=== PATIENT | male | born 1930 | race Caucasian/White ===

== ENCOUNTER → 2016-07-20 | Day surgery (SDC) | payer MEDICARE ==
[~2016-07-20] MED LIST: Buffered Lidocaine 1% SYR 3ML* 3 ML/SYR SYRINGE INTRADERM ONE; Buffered Lidocaine 1% SYR 3ML* 3 ML/SYR SYRINGE ONE; Bupivacaine 0.25% EPI 200,000* 30 ML SDV ONE; Bupivacaine 0.25% SDV* 30 ML ONE; Bupivacaine 0.5% W/EPI SDV* 30 ML VIAL ONE; HYDROcodone/ACETAMIN 5-325 MG* 1 TAB PO PRN; Lidocain 1% EPI 1:100,000 * 30 ML MDV ONE; Midazolam* 1 MG/ML 5 ML VIAL (5 MG) ONE; Ondansetron INJ* 2 MG/ML VIAL IV PRN; ceFAZolin 2 GM PREMIX (*) 2 GM/50 ML BAG IVPB ONE; fentaNYL* 50 MCG/ML 2 ML VIAL (100 MCG VIAL) IV PRN; fentaNYL* 50 MCG/ML 2 ML VIAL (100 MCG VIAL) ONE
[2016-07-20 15:46] VITALS: BP 167/78
== END | disposition home or self-care (01) ==
LOC: OREAST 13:29
PROVIDERS: ATTEND Plastic Surgery
DX: C43.59 Malignant melanoma of other part of trunk (principal); N18.9 Chronic kidney disease, unspecified; Z86.73 Personal history of transient ischemic attack (TIA), and cerebral infarction without residual deficits; Z79.01 Long term (current) use of anticoagulants
CPT/HCPCS: 88305; J0690; J2250; J3010

== ENCOUNTER 2017-08-13 01:41 | Inpatient (IN) | payer MEDICARE ==
[2017-08-13] MEDS ORDERED: Diltiazem IV* 5 MG/ML 5 ML VIAL (for loading dose/IV Push) (25 MG) IV PUSH ONE (02:25)
[2017-08-13 02:41] LABS: ABS Basophils 0.1 10^3/ul (0-0.2); ABS Eosinophils 0.2 10^3/ul (0-0.6); ABS Lymphocytes 1.2 10^3/ul (1.0-4.8); ABS Monocytes 0.8 10^3/ul (0-0.8); ABS Neutrophils 6.4 10^3/ul (1.5-7.7); ABS Nucleated RBC 0 10^3/ul; Eosinophil % 1.7 % (0-6); Hematocrit 37 % (42-52); Hemoglobin 12.2 g/dl (14.0-18.0); Lymphocyte % 13.8 % (25-47); Mean Corpuscular HGB Conc 33 g/dl (31-36); Mean Corpuscular Hemoglobin 33 pg (27-31); Mean Corpuscular Volume 100 fL (80-94); Mean Platelet Volume 10 um3 (7.4-10.4); Nucleated Red Blood Cells % 0.1; Platelet Count 122 10^3/ul (150-450); Red Blood Count 3.68 10^6/ul (4.0-5.4); Red Cell Distribution Width 15 % (10.5-15); White Blood Count 8.7 10^3/ul (3.5-10.8)
[2017-08-13 02:51] LABS: EGFR Non-African American 11.6 (>60)
[2017-08-13 02:54] LABS: INR 0.88 (0.77-1.02)
[2017-08-13] MEDS ORDERED: Potassium Chlor TAB* 20 MEQ TAB.ER PO ONE (03:29)
[2017-08-13] MEDS ORDERED: Al Hydrox/Mg Hydrox/Simet LIQ* 30 ML UDC PO PRN (03:30)
[2017-08-13] MEDS ORDERED: Ondansetron INJ* 2 MG/ML VIAL IV PRN (03:30)
[2017-08-13] MEDS ORDERED: Senna TAB PO PRN (03:36)
[2017-08-13] MEDS ORDERED: Docusate CAP* 100 MG PO PRN (03:36)
[2017-08-13] MEDS ORDERED: Diltiazem IV VIAL* 125 MG/25 ML VIAL ONE (03:37)
[2017-08-13] MEDS: Heparin DRIP 25,000 UNITS(*) 25,000 UNITS/500 ML BAG IV SCH ×2 (04:00→07:25)
[2017-08-13] MEDS ORDERED: Heparin VIAL(*) 5000 UNITS/ML VIAL (FIVE THOUSAND) IV SCH (04:00)
[2017-08-13] MEDS ORDERED: Diltiazem IV VIAL* 125 MG in NS 0.9% 100 ML* 100 ML IVPB SCH ×2 (04:00→06:49)
--- NOTE | 2017-08-13 05:10 | ED ---
Niko Cash Thomas, scribed for Jj Liz on 08/13/17 at 0219 . HPI Chest Pain - HPI Summary HPI Summary: The patient is an 86 year old male presenting to the emergency department complaining of chest pain and an irregular heart rate that began today at midnight. He has a history of similar episodes once about every three months. The pain is rated 5/10. The patient denies edema. He has a history of chronic kidney disease. - History of Current Complaint Chief Complaint: EDChestPainROMI Time Seen by Provider: 08/13/17 02:12 Hx Obtained From: Patient Onset/Duration: Started Hours Ago - 2, Still Present Timing: Constant Current Severity: Moderate Pain Intensity: 5 Pain Scale Used: 0-10 Numeric Chest Pain Radiates: No Aggravating Factor(s): Nothing Alleviating Factor(s): Nothing Associated Signs and Symptoms: Positive: Chest Pain, Other: - Irregular heart rate. Negative: Edema - Allergy/Home Medications Allergies/Adverse Reactions: Allergies Allergy/AdvReac Type Severity Reaction Status Date / Time No Known Allergies Allergy Verified 07/20/16 13:41 PMH/Surg Hx/FS Hx/Imm Hx Cardiovascular History: Reports: Hx Hypertension, Other Cardiovascular Problems/ Disorders - CHOLESTEROL CONTROL WITH MEDS GI History: Reports: Other GI Disorders - CONSTIPATION- METAMUCIL, colace History: Reports: Hx Kidney Stones - "DEBRIS" AT 22 YRS OF AGE, Other Problems/Disorders Musculoskeletal History: Reports: Hx Arthritis - GENERALIZED,, Other Musculoskeletal History - RIGHT LOWER BACK PAIN FOR PAST MONTH Sensory History: Reports: Hx Cataracts - HX, Hx Contacts or Glasses - GLASSES- DISTANCE, Hx Hearing Aid - bilat Opthamlomology History: Reports: Hx Cataracts - HX, Hx Contacts or Glasses - GLASSES- DISTANCE Neurological History: Reports: Hx Seizures - 1989 ONE TIME ONLY, Other Neuro Impairments/Disorders - 1989 TIA - Surgical History Surgery Procedure, Year, and Place: 1954 TUR- [facility]. BILATERAL INGUINAL HERNIA SURG X 3 1949'S AND 1965- [facility]. 11/27 left ARM MELANOMA - DR BRYANT [facility]. cataract surgery with lens implants - [facility] - 2007 Hx Anesthesia Reactions: No Infectious Disease History: No Infectious Disease History: Denies: Traveled Outside the [place] in Last 30 Days - Family History Known Family History: Positive: Other - Patient denies relevant FHx - Social History Alcohol Use: Rare Alcohol Amount: 1-2 DRINKS/WEEK Substance Use Type: Reports: None Smoking Status (MU): Never Smoked Tobacco Have You Smoked in the Last Year: No Review of Systems Negative: Fever Positive: Chest Pain, Other - Irregular heart rate Negative: Edema All Other Systems Reviewed And Are Negative: Yes Physical Exam - Summary Physical Exam Summary: Appearance: Well appearing, no pain distress Skin: warm, dry, reflects adequate perfusion Head/face: normal Eyes: EOMI, EDWARDO ENT: normal Neck: supple, non-tender Respiratory: CTA, breath sounds present Cardiovascular: Irregularly irregular rhythm. Tachycardia. Abdomen: non-tender, soft Bowel: present Musculoskeletal: normal, strength/ROM intact Neuro: normal, sensory motor intact, A&Ox3 Triage Information Reviewed: Yes Vital Signs On Initial Exam: Initial Vitals Temp Pulse Resp BP Pulse Ox 97.1 F 69 14 140/78 96 08/13/17 01:47 08/13/17 01:47 08/13/17 01:47 08/13/17 01:47 08/13/17 01:47 Vital Signs Reviewed: Yes Diagnostics - Vital Signs Vital Signs Temp Pulse Resp BP Pulse Ox 08/13/17 01:47 97.1 F 69 14 140/78 96 - Laboratory Lab Results: Lab Results 08/13/17 08/13/17 08/13/17 Range/Units 02:16 02:16 02:16 WBC 8.7 (3.5-10.8) 10^3/ul RBC 3.68 L (4.0-5.4) 10^6/ul Hgb 12.2 L (14.0-18.0) g/dl Hct 37 L (42-52) % MCV 100 H (80-94) fL MCH 33 H (27-31) pg MCHC 33 (31-36) g/dl RDW 15 (10.5-15) % Plt Count 122 L (150-450) 10^3/ul MPV 10 (7.4-10.4) um3 Neut % (Auto) 74.1 (38-83) % Lymph % (Auto) 13.8 L (25-47) % Hyde % (Auto) 9.8 H (1-9) % Eos % (Auto) 1.7 (0-6) % Baso % (Auto) 0.6 (0-2) % Absolute Neuts (auto) 6.4 (1.5-7.7) 10^3/ul Absolute Lymphs (auto) 1.2 (1.0-4.8) 10^3/ul Absolute Monos (auto) 0.8 (0-0.8) 10^3/ul Absolute Eos (auto) 0.2 (0-0.6) 10^3/ul Absolute Basos (auto) 0.1 (0-0.2) 10^3/ul Absolute Nucleated RBC 0 10^3/ul Nucleated RBC % 0.1 INR (Anticoag Therapy) 0.88 (0.77-1.02) APTT 31.4 (26.0-36.3) seconds Sodium (133-145) mmol/L Potassium (3.5-5.0) mmol/L Chloride (101-111) mmol/L Carbon Dioxide (22-32) mmol/L Anion Gap (2-11) mmol/L BUN (6-24) mg/dL Creatinine (0.67-1.17) mg/dL Est GFR ( Amer) (>60) Est GFR (Non-Af Amer) (>60) BUN/Creatinine Ratio (8-20) Glucose (70-100) mg/dL Lactic Acid 0.6 (0.5-2.0) mmol/L Calcium (8.6-10.3) mg/dL Magnesium (1.9-2.7) mg/dL Total Bilirubin (0.2-1.0) mg/dL AST (13-39) U/L ALT (7-52) U/L Alkaline Phosphatase (34-104) U/L Troponin I (<0.04) ng/mL B-Natriuretic Peptide ( - 100) pg/mL Total Protein (6.4-8.9) g/dL Albumin (3.2-5.2) g/dL Globulin (2-4) g/dL Albumin/Globulin Ratio (1-3) TSH (0.34-5.60) mcIU/mL 08/13/17 08/13/17 Range/Units 02:26 02:26 WBC (3.5-10.8) 10^3/ul RBC (4.0-5.4) 10^6/ul Hgb (14.0-18.0) g/dl Hct (42-52) % MCV (80-94) fL MCH (27-31) pg MCHC (31-36) g/dl RDW (10.5-15) % Plt Count (150-450) 10^3/ul MPV (7.4-10.4) um3 Neut % (Auto) (38-83) % Lymph % (Auto) (25-47) % Hyde % (Auto) (1-9) % Eos % (Auto) (0-6) % Baso % (Auto) (0-2) % Absolute Neuts (auto) (1.5-7.7) 10^3/ul Absolute Lymphs (auto) (1.0-4.8) 10^3/ul Absolute Monos (auto) (0-0.8) 10^3/ul Absolute Eos (auto) (0-0.6) 10^3/ul Absolute Basos (auto) (0-0.2) 10^3/ul Absolute Nucleated RBC 10^3/ul Nucleated RBC % INR (Anticoag Therapy) (0.77-1.02) APTT (26.0-36.3) seconds Sodium 137 (133-145) mmol/L Potassium 3.3 L (3.5-5.0) mmol/L Chloride 105 (101-111) mmol/L Carbon Dioxide 20 L (22-32) mmol/L Anion Gap 12 H (2-11) mmol/L BUN 86 H (6-24) mg/dL Creatinine 4.80 H (0.67-1.17) mg/dL Est GFR ( Amer) 15.0 (>60) Est GFR (Non-Af Amer) 11.6 (>60) BUN/Creatinine Ratio 17.9 (8-20) Glucose 141 H (70-100) mg/dL Lactic Acid (0.5-2.0) mmol/L Calcium 10.5 H (8.6-10.3) mg/dL Magnesium 2.8 H (1.9-2.7) mg/dL Total Bilirubin 0.40 (0.2-1.0) mg/dL AST 14 (13-39) U/L ALT 13 (7-52) U/L Alkaline Phosphatase 32 L (34-104) U/L Troponin I 0.06 H* (<0.04) ng/mL B-Natriuretic Peptide 175 H ( - 100) pg/mL Total Protein 6.6 (6.4-8.9) g/dL Albumin 3.7 (3.2-5.2) g/dL Globulin 2.9 (2-4) g/dL Albumin/Globulin Ratio 1.3 (1-3) TSH 3.84 (0.34-5.60) mcIU/mL Result Diagrams: 08/13/17 02:16 08/13/17 02:26 Lab Statement: Any lab studies that have been ordered have been reviewed, and results considered in the medical decision making process. - Radiology CXR Xray Interpretation: No Acute Changes - Negative CXR Radiology Interpretation Completed By: ED Physician - EKG 01:52 Cardiac Rate: Tachycardia EKG Rhythm: Atrial Fibrillation - at 129 BPM EKG Interpretation: A-Fib with RVR Chest Pain Course/Dx - Course Assessment/Plan: The patient is an 86 year old male presenting to the emergency department complaining of chest pain and an irregular heart rate that began today at midnight. In the ED course the patient was given Diltiazem. Bloodwork was obtained. EKG shows A-Fib with RVR. CXR is negative. Patient is diagnosed with A-Fib with RVR, chest pain, ACS, and chronic renal failure. The patient will be admitted to Dr. Espinosa. 30 minutes critical care time. - Chest Pain Differential Diagnosis/HQI/PQRI: Acute TN, ACS, Angina, Chest Wall, Pulmonary Edema - Diagnoses Provider Diagnoses: Atrial fibrillation with RVR, Chest pain, ACS (acute coronary syndrome), Chronic renal failure - Provider Notifications Discussed Care Of Patient With: Maria A Espinosa Time Discussed With Above Provider: 03:03 Instructed by Provider To: Admit As Inpatient - Critical Care Time Critical Care Time: 30-74 min - 30 minutes Discharge - Discharge Plan Condition: Fair Disposition: ADMITTED TO [facility] Discharge Disposition Comment: By Dr. Espinosa The documentation as recorded by the Niko meza Thomas accurately reflects the service I personally performed and the decisions made by , Jj Liz.
[2017-08-13] MEDS ORDERED: Warfarin TAB(*) 5 MG PO ONE (06:00)
--- NOTE | 2017-08-13 08:14 | RAD ---
Indication: Shortness of breath. Single frontal view of the chest performed at 0258 hours was reviewed. No prior study is available for comparison. No mediastinal shift is noted. There is cardiomegaly noted. Lung bundy are clear. IMPRESSION: CARDIOMEGALY WITHOUT EVIDENCE OF ACTIVE CARDIOPULMONARY DISEASE.
[2017-08-13] MEDS ORDERED: Clopidogrel TAB* 75 MG PO SCH (09:00)
[2017-08-13] MEDS ORDERED: Allopurinol TAB* 100 MG PO SCH (09:00)
[2017-08-13] MEDS ORDERED: Calcitriol CAP* 0.25 MCG PO SCH (09:00)
[2017-08-13] MEDS ORDERED: Carvedilol TAB* 6.25 MG PO SCH (09:00)
--- NOTE | 2017-08-13 11:09 | HP ---
CC: Selene Conn MD; Katie Glass MD; Raimundo Saenz MD HISTORY AND PHYSICAL: DATE OF ADMISSION: 08/13/17 TIME OF EVALUATION: 0300 PRIMARY CARE PHYSICIAN: Selene Conn MD. COLLABORATIVE TEACHER: Katie Glass MD. TOBACCO CONDITIONER: Raimundo Saenz MD. CHIEF COMPLAINT: Chest pain and rapid rhythm. HISTORY OF PRESENT ILLNESS: This is an 86-year-old male with a past medical history of rapid heart rate who presents to the emergency room with a chest pain and rapid heartbeat. Patient states he had some slight chest discomfort prior to going to bed. He woke up around midnight to go to the bathroom; before getting up he noticed the chest pain had worsened, and he was noted to have a fast heart rate. A year and a half ago, he was in [place] visiting his daughter when he noted to have a rapid heart rate, he was evaluated and had a normal sinus rhythm at that time. There was concern for an irregular rhythm but he was diagnosed with atrial fibrillation in the past. Patient states he has had dyspnea on exertion; short of breath going uphill, putting a socks on, his put the socks on. This evening he did have some nausea and some mild diaphoresis. He denies any recent URI illness, no fevers, no change in his weight, no lower extremity swelling. He denies any caffeine intake. He does snore at night according to the . Currently his chest pain has improved. In the emergency room patient had labs and imaging. He was given 20 mg of Diltiazem and was referred to the hospitalist service for further evaluation. Otherwise, remaining review of systems negative. PAST MEDICAL HISTORY: 1. History of rapid heart rate. 2. History of TIA in 1989 with left-sided numbness. 3. Hypertension. 4. CKD, has peritoneal catheter in place for the past year, but has not yet initiated dialysis followed by Dr. Saenz. 5. Hyperlipidemia. 6. History of melanoma and basal cell carcinoma. 7. Gout. MEDICATIONS: 1. Allopurinol 100 mg p.o. b.i.d. 2. Simvastatin 20 mg p.o. daily. 3. Lasix 40 mg p.o. daily. 4. Losartan 100 mg p.o. daily. 5. Hydralazine 25 mg 2 tabs 15 mg t.i.d. 6. Aspirin 81 mg p.o. daily. 7. FiberCon 625 mg 3 tablets by mouth daily. 8. Fish oil 1000 mg p.o. q.d. 9. Coreg 6.25 mg p.o. b.i.d. 10. Plavix 75 mg p.o. daily. 11. Colace 100 mg b.i.d. as needed. 12. Colchicine 0.6 mg by mouth as needed. 13. Meclizine 25 mg 3 times a day as needed. 14. Metamucil as needed. 15. Calcitriol 0.25 mcg by mouth daily. ALLERGIES: No known drug allergies. FAMILY HISTORY: Mother at age 102 from old age. Father from colon cancer, age 43. SOCIAL HISTORY: Patient is with his Marycarmen, who is his healthcare proxy. She is a retired nurse. No history of smoking. Drinks 1 to 2 times per month. He is independent of his ADLs. Code Status: Full code. REVIEW OF SYSTEMS: A 14-point review of systems as mentioned in the HPI, otherwise negative. PHYSICAL EXAMINATION GENERAL: No acute distress. Resting comfortably with his at the bedside. VITAL SIGNS: Temp 97.8; pulse rate is 112, irregular; respiratory is 14; oxygen saturation 97% on room air, blood pressure 146/78. HEENT: Head, normocephalic. Pupils equal and reactive. Oropharynx: Mucous membranes moist. NECK: Supple. No lymphadenopathy. RESPIRATORY: Diminished breath sounds. No wheezing, rhonchi, or rales CARDIAC: Rapid irregularly, irregular rate and rhythm. Soft systolic murmur heard throughout. ABDOMEN: Soft, nontender, nondistended. EXTREMITIES: No clubbing, cyanosis, or edema. +1 DPs. NEUROLOGIC: Alert and oriented x3. No focal neurologic deficits. LABORATORY DATA: White count 8.7, hemoglobin 12.2, hematocrit 37, and platelets 122. INR is 0.88. Sodium 132, potassium 3.3, chloride 105, bicarb 20 , BUN 86, creatinine 4.8, calcium 10.5, glucose 141, troponin is 0.06. BMP 175. TSH is 3.85. DIAGNOSTIC DATA: Radiographic data, EKG shows rapid atrial fibrillation with a rate of 129. Chest x-ray shows some slightly prominent interstitial markings, cardiomegaly. ASSESSMENT: This is an 86-year-old male with a past medical history of rapid heart rate, TIA, and CKD, who presents to the emergency room with chest pain and rapid heart rate, find to be in rapid atrial fibrillation. 1. Chest pain with rapid heart rate. Assessment: Patient was found to be in a rapid atrial fibrillation. His troponin is slightly bumped but this could be related to his renal failure and/or his rapid afib. It appears that he has longstanding undiagnosed paroxysmal atrial fibrillation; he is not on anticoagulation. Plan: We will start him on a diltiazem drip, replete his potassium, check and magnesium. We will keep him n.p.o. We will call Cardiology in the morning and order a DEEP. We will place him on a heparin drip as he is not a candidate for direct oral anticoagulation due to his renal function. We will start him on Coumadin as his CHADs2 score is 4. We will continue to trend his troponin. We will hold his aspirin. Continue his Plavix as he is getting heparin and I am going to start him on a low dose Coumadin for now. I suspect his chest pain is related to his rapid atrial fibrillation, we will trend his troponin. He may need nuclear stress test as well. 2. Chronic medical problem, chronic kidney disease. Recommend notifying Dr. Saenz. He does have peritoneal catheter in place, but has never initiated dialysis. We will monitor his renal function closely. I am going to hold his lisinopril and antihypertensives for now and start with diltiazem drip. 3. Hypertension, as mentioned I will hold the antihypertensives for now. We will continue his Coreg. 4. Gout. Patient is on high dose of allopurinol. In the setting of renal failure, we will decrease it to 100 daily instead of b.i.d. 5. Hyperlipidemia. We will check his lipid panel and switch to atorvastatin from simvastatin as he did not have that in formulary. 6. FEN. Patient to be n.p.o. for possible DEEP in the morning. 7. DVT prophylaxis. The patient scores high risk. He will be on placed on a heparin drip. PATIENT TIME: Greater than 70 minutes was spent doing the history and physical , more than half time spent in direct patient contact. [id number]/[facility] #: [id number] REA
[2017-08-13] MEDS ORDERED: Amiodarone TAB* 200 MG PO SCH ×2 (13:52→21:00)
--- NOTE | 2017-08-13 14:42 | PN ---
Subjective Date of Service: 08/13/17 Interval History: Patient was admitted this morning with chest pain and afib with RVR. Patient states that he has had no recurrences of his chest pain since this morning and that it lasted about 3 hours. Patient has had previous episodes like this before and the chest pain lasted the same amount of time. Patient has never had documented afib before but has had similar episodes. Patient states he gets nauseated with the pain but is not now. Patient denies F/C, Abdominal pain, diarrhea, recent illness, dysuria, or other pain. Patient spontaneously converted to NSR around 1230 with a rate initially in the 40s and now in the 50s. Family History: Unchanged from Admission Social History: Unchanged from Admission Past Medical History: Unchanged from Admission Objective Active Medications: Al Hydrox/Mg Hydrox/Simethicone (Maalox Plus*) 30 ml PO Q6H PRN PRN Reason: INDIGESTION Allopurinol (Zyloprim Tab*) 100 mg PO DAILY [facility] Last Admin: 08/13/17 14:11 Dose: 100 mg Amiodarone HCl (Cordarone Tab*) 200 mg PO BID [facility] Last Admin: 08/13/17 14:11 Dose: 200 mg Atorvastatin Calcium (Lipitor*) 20 mg PO 2100 [facility] Calcitriol (Rocaltrol Cap*) 0.25 mcg PO DAILY [facility] Last Admin: 08/13/17 14:11 Dose: 0.25 mcg Carvedilol (Coreg Tab*) 6.25 mg PO BID [facility] Last Admin: 08/13/17 14:11 Dose: 6.25 mg Docusate Sodium (Colace Cap*) 100 mg PO DAILY PRN PRN Reason: CONSTIPATION Heparin Sodium (Porcine) (Heparin Vial(*)) 0 units IV .PER PROTOCOL [facility] PRN Reason: Protocol Heparin Sodium/Dextrose (Heparin Drip 25,000 Units(*)) 25,000 units in 500 mls @ 0 mls/hr IV .NO BOLUSES PROTOCOL [facility]; Per Protocol PRN Reason: Protocol Last Admin: 08/13/17 07:25 Dose: 22 mls/hr Ondansetron HCl (Zofran Inj*) 4 mg IV Q4H PRN PRN Reason: NAUSEA/VOMITING Pharmacy Profile Note (Coumadin Per Pharmacy*) 1 note FOLLOW UP .PER PHARMACY PROTOC [facility] PRN Reason: Protocol Pharmacy Profile Note (Coumadin Daily Reminder*) 1 note FOLLOW UP 1700 ZECHARIAH Senna (Senokot Tab*) 1 tab PO BEDTIME PRN PRN Reason: CONSTIPATION Vital Signs - 8 hr 08/13/17 08/13/17 08/13/17 06:48 07:00 07:10 Temperature Pulse Rate 71 66 84 Respiratory Rate Blood Pressure 114/70 134/52 110/69 (mmHg) O2 Sat by Pulse 96 98 96 Oximetry 08/13/17 08/13/17 08/13/17 07:13 07:18 07:24 Temperature Pulse Rate 77 82 Respiratory Rate Blood Pressure 96/69 106/67 102/65 (mmHg) O2 Sat by Pulse 94 93 Oximetry 08/13/17 08/13/17 08/13/17 07:29 07:30 07:34 Temperature Pulse Rate 65 94 Respiratory Rate Blood Pressure 103/67 146/113 117/62 (mmHg) O2 Sat by Pulse 97 95 Oximetry 08/13/17 08/13/17 08/13/17 07:39 07:41 07:43 Temperature Pulse Rate 79 72 73 Respiratory Rate Blood Pressure 117/62 101/70 (mmHg) O2 Sat by Pulse 96 95 96 Oximetry 08/13/17 08/13/17 08/13/17 07:49 07:54 07:58 Temperature Pulse Rate 66 80 82 Respiratory Rate Blood Pressure 130/78 112/63 111/73 (mmHg) O2 Sat by Pulse 95 96 96 Oximetry 08/13/17 08/13/17 08/13/17 08:00 08:03 08:06 Temperature 98.1 F Pulse Rate 84 Respiratory 18 Rate Blood Pressure 151/63 113/67 (mmHg) O2 Sat by Pulse 96 Oximetry 08/13/17 08/13/17 08/13/17 08:09 08:13 08:18 Temperature Pulse Rate 68 102 Respiratory Rate Blood Pressure 98/70 107/64 (mmHg) O2 Sat by Pulse 94 94 Oximetry 08/13/17 08/13/17 08/13/17 08:23 08:38 08:53 Temperature Pulse Rate 82 65 73 Respiratory Rate Blood Pressure 99/62 104/67 95/75 (mmHg) O2 Sat by Pulse 95 94 95 Oximetry 08/13/17 08/13/17 08/13/17 09:00 09:08 09:18 Temperature Pulse Rate 92 80 107 Respiratory Rate Blood Pressure 113/75 128/72 (mmHg) O2 Sat by Pulse 95 95 94 Oximetry 08/13/17 08/13/17 08/13/17 09:38 09:54 10:00 Temperature Pulse Rate 75 71 61 Respiratory Rate Blood Pressure 115/72 (mmHg) O2 Sat by Pulse 95 93 96 Oximetry 08/13/17 08/13/17 08/13/17 10:05 10:08 10:15 Temperature Pulse Rate 74 86 82 Respiratory Rate Blood Pressure 108/75 (mmHg) O2 Sat by Pulse 94 94 95 Oximetry 08/13/17 08/13/17 08/13/17 10:38 11:00 11:08 Temperature Pulse Rate 79 80 82 Respiratory Rate Blood Pressure 132/78 132/70 (mmHg) O2 Sat by Pulse 95 95 95 Oximetry 08/13/17 08/13/17 08/13/17 11:13 11:14 11:38 Temperature 98.6 F Pulse Rate 77 70 Respiratory Rate Blood Pressure 124/75 (mmHg) O2 Sat by Pulse 94 93 Oximetry 08/13/17 08/13/17 08/13/17 11:58 12:00 12:02 Temperature Pulse Rate 70 81 45 Respiratory Rate Blood Pressure 118/61 (mmHg) O2 Sat by Pulse 96 94 93 Oximetry 08/13/17 08/13/17 12:33 14:17 Temperature Pulse Rate 58 Respiratory 26 Rate Blood Pressure 153/62 114/62 (mmHg) O2 Sat by Pulse Oximetry Oxygen Devices in Use Now: None Appearance: Pateint is an 86yo male who appears stated age and is sitting in the bed in [facility]. Eyes: No Scleral Icterus, PERRLA Ears/Nose/Mouth/Throat: NL Teeth, Lips, Gums, Clear Oropharnyx, Mucous Membranes Moist Neck: NL Appearance and Movements; NL JVP, Trachea Midline Respiratory: Symmetrical Chest Expansion and Respiratory Effort, Clear to Auscultation Cardiovascular: NL Sounds; No Murmurs; No JVD, No Edema, - - Irregularly irregular rhythm rate of 96. Abdominal: NL Sounds; No Tenderness; No Distention, No Hepatosplenomegaly, - - peritoneal dialysis catheter. Lymphatic: No Cervical Adenopathy Extremities: No Edema, No Clubbing, Cyanosis Skin: No Rash or Ulcers, No Nodules or Sclerosis Neurological: Alert and Oriented x 3, NL Sensation, NL Muscle Strength and Tone Result Diagrams: 08/13/17 02:16 08/13/17 02:26 Additional Lab and Data: Lab Results Assess/Plan/Problems-Billing Assessment: Patient is an 86yo male with a pmh significant for CKD stage 4, HTN, HLD, TIA, chest pain, who presents with 3 hours of chest pain and afib with RVR who has now spontaneously converted to NSR with a rate in the 50s. - Patient Problems (1) Atrial fibrillation Current Visit: Yes Status: Acute Code(s): I48.91 - UNSPECIFIED ATRIAL FIBRILLATION SNOMED Code(s): 10110051 (2) Hypertension Current Visit: Yes Status: Acute Code(s): I10 - ESSENTIAL (PRIMARY) HYPERTENSION SNOMED Code(s): 31596967 (3) Chronic kidney disease Current Visit: Yes Status: Acute Code(s): N18.9 - CHRONIC KIDNEY DISEASE, UNSPECIFIED SNOMED Code(s): 803797981 (4) History of CVA (cerebrovascular accident) Current Visit: Yes Status: Acute Code(s): Z86.73 - PRSNL HX OF TIA (TIA), AND CEREB INFRC W/O RESID DEFICITS SNOMED Code(s): 435942999 (5) HLD (hyperlipidemia) Current Visit: Yes Status: Acute Code(s): E78.5 - HYPERLIPIDEMIA, UNSPECIFIED SNOMED Code(s): 25148275 (6) DVT prophylaxis Current Visit: Yes Status: Acute Code(s): SWH1341 - SNOMED Code(s): 898042321 (7) Full code status Current Visit: Yes Status: Acute Code(s): Z78.9 - OTHER SPECIFIED HEALTH STATUS SNOMED Code(s): 607141623
[2017-08-13 15:33] VITALS: BP 116/51
[2017-08-13] MEDS ORDERED: Atorvastatin* 20 MG TAB PO SCH (21:00)
--- NOTE | 2017-08-14 16:15 | CONS ---
CC: Dr. Katie Glass; Dr. Saenz; Dr. Conn * CARDIOLOGY CONSULTATION: DATE OF CONSULT: 08/13/17 INDICATION FOR CONSULT: Atrial fibrillation. HISTORY OF PRESENT ILLNESS: The patient is an 86-year-old gentleman with a history of severe renal insufficiency, history of TIA in the past, who presents with an episode of heart racing, chest pain, and was found to be in atrial fibrillation with rapid ventricular response. The patient has been evaluated in the past by Dr. Glass for these similar episodes. The patient describes these episodes as a discomfort in his upper chest, it goes from his right shoulder to his left shoulder. It is a heaviness in his chest. He also notices that his heartbeat is irregular. The patient had one of these episodes in [place], [place]. He was admitted to the hospital for 4 days. At that time, he had a stress test and echocardiogram both of which were unremarkable. He had minimally elevated troponin levels at that time. He was discharged home with the diagnosis of tachycardia. Again, he has had 6 or 7 of these episodes over the last year and a half. Generally they last just about half an hour or so and then resolve on their own. Last night, however, he had a longer episode and decided to come to the emergency room. He was admitted in the emergency room with atrial fibrillation with rapid ventricular response. He was started on a heparin drip and a Cardizem drip. This morning, the patient is pain free. PAST MEDICAL HISTORY: Significant for TIA in 1989, hypertension, renal insufficiency, hyperlipidemia, melanoma, and basal cell carcinoma. PAST SURGICAL HISTORY: Hernia repair and peritoneal dialysis catheter placed. OUTPATIENT MEDICATIONS: 1. Allopurinol 100 mg b.i.d. 2. Simvastatin 20 mg a day. 3. Lasix 40 mg a day. 4. Losartan 100 mg a day. 5. Hydralazine 50 mg 3 times a day. 6. Aspirin 81 mg a day. 7. Fish oil tablets. 8. Coreg 6.25 mg b.i.d. 9. Plavix 75 mg a day. 10. Colchicine as needed. ALLERGIES: No known drug allergies. FAMILY HISTORY: His has history of cancer. Father of cancer. SOCIAL HISTORY: He is . 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 Denies tobacco or alcohol use. He does exercise regularly. PHYSICAL EXAM: Height is 5 feet 8 inches, weight is 180 pounds. Temperature 97.5, heart rate is 118 and irregular, blood pressure 116/51, respiratory rate is 20, oxygen saturation 95%. Later on the day, the patient converted to normal sinus rhythm at a heart rate of 60. Sclerae anicteric. Oropharynx is pink without erythema. Carotids are 2+ without bruits. JVD is normal. Thyroid is normal. Cardiac Exam: S1 and S2 without any murmurs, rubs, or gallops. PMI is normal. Lungs: Clear to auscultation bilaterally. There is no dullness to percussion. Abdomen is soft, nontender, and nondistended with normoactive bowel sounds. Extremities: Show no edema. He has 2+ pulses throughout. The patient is awake, alert, and oriented. He moves all 4 extremities equally. DIAGNOSTIC STUDIES/LAB DATA: CBC within normal limits, hemoglobin 12, hematocrit 37. Chemistries: Potassium is 3.3, BUN 86, creatinine 4.8. Troponin levels are minimally elevated at 0.23. BNP is minimally elevated at 175. TSH 3.8. EKG demonstrates atrial fibrillation with rapid ventricular response. IMPRESSION: This is an 86-year-old gentleman with history of tachycardia, who was admitted to the hospital with atrial fibrillation with rapid ventricular response. These are clearly the episodes he has had over the last year and a half. The patient ultimately converted to normal sinus rhythm on his own. RECOMMENDATIONS: For now my recommendation is to start the patient on amiodarone 200 mg b.i.d. for 1 week and then 200 mg a day. This is for suppression of his atrial fibrillation. It is also my recommendation that the patient go on anticoagulation. The patient will be started on Coumadin as he is not a candidate for the NOAC medications. The patient should stop his Plavix and continue on aspirin 81 mg a day. The patient will follow up as an outpatient with Dr. Glass. [id number]/[facility] #: [id number] [facility] HOSPITALIrma
--- NOTE | 2017-08-15 15:59 | DS ---
CC: Dr. Selene Conn; Dr. Katie Glass; Dr. Rey Adair * DISCHARGE SUMMARY: DATE OF ADMISSION: 08/13/17 DATE OF DISCHARGE: 08/13/17 PRIMARY CARE PROVIDER: Selene Conn MD PRIMARY GRIT REMOVAL OPERATOR: Katie Glass MD. CONSULTING GRIT REMOVAL OPERATOR IN THE HOSPITAL: Rey Adair MD. MY ATTENDING WHILE IN THE HOSPITAL: Nasreen Berrios DO.* (DICTATED BY CYN REA) PRIMARY DISCHARGE DIAGNOSIS: Chest pain and atrial fibrillation with rapid ventricular response. SECONDARY DISCHARGE DIAGNOSES: 1. History of rapid heart rate, TIA in 1989 with left side numbness, resolved. 2. Hypertension. 3. Chronic kidney disease, stage 4. 4. Hyperlipidemia. 5. History of melanoma and basal cell carcinoma. 6. Gout. STUDIES DONE WHILE IN THE HOSPITAL: Electrocardiogram from 08/13/17 shows atrial fibrillation with rapid ventricular response rate of 129, normal axis, right bundle branch block pattern, and several ST segment abnormalities. QTc of 454, normal axis, no other abnormalities. EKG from 08/13/17 shows no significant changes from previous exam. Repeat EKG from 08/13/17 shows normal sinus rhythm rate 53, normal ST segment abnormalities , normal axis, QTc of 429, now possible T-wave flattening in V5 and V6. Chest x-ray from 08/13/17 shows cardiomegaly without evidence for active cardiopulmonary disease. MEDICATIONS AT DISCHARGE: 1. Nexium 25 mg p.o. t.i.d. as needed. 2. Diazepam 5 mg p.o. as needed. 3. Allopurinol 100 mg p.o. 1 tab b.i.d. as needed. 4. Simvastatin 20 mg p.o. q. p.m. 5. Losartan 100 mg p.o. q. p.m. 6. Furosemide 40 mg p.o. q. a.m. 7. Colchicine 0.6 mg p.o. daily as needed. 8. Hydralazine 25 mg p.o. t.i.d. 9. Psyllium 2 wafers p.o. q. 48 hours as needed. 11. Fish oil 1 cap p.o. daily. 12. Docusate 100 mg p.o. as needed. 13. FiberCon 625 mg p.o. q.i.d. as needed. 14. Aspirin 81 mg p.o. q. a.m. 15. Carvedilol 6.25 mg p.o. b.i.d. 16. Amiodarone 200 mg p.o. b.i.d. for 1 week then 200 mg p.o. daily. 17. Warfarin 5 mg p.o. nightly. New medications at discharge: 1. Amiodarone. 2. Warfarin. Medications discontinued at discharge: Clopidogrel. HOSPITAL COURSE: This is a brief summary of the patient's presentation. For more details, please see history and physical by Dr. Maria A Espinosa from . In brief, the patient is an 86-year-old male with past medical history significant as noted above who had some slight chest discomfort on 08/12/17. He woke up at midnight to go to the bathroom and had worsening chest pain as well as a fast heart rate. The patient had a similar episode a year and half ago, in [place]. The patient also had nausea and some diaphoresis with this pain; patient denied any recent illnesses. The patient was found to be in atrial fibrillation. The patient never had documented atrial fibrillation before, but it had been suspected. Patient was anticoagulated for quite a while after his TIA in 1989, but had been stopped. The patient also had peritoneal dialysis catheter placed, but is not on dialysis due to GFR not requiring it. The patient was started on diltiazem drip, which was able to effectively control his heart rate issues and found to have slightly elevated troponin of 0.6, which trended up to 0.27. The patient's lipid panel was with LDL cholesterol 69, HDL cholesterol of 23.9, otherwise electrolyte abnormalities including creatinine of 4.8, magnesium 2.8. Hemoglobin of 12.2, MCV of 100, platelet count of 122. The patient also had BNP 175. The patient was monitored on telemetry. The patient was seen in consultation by Dr. Rey Adair. The patient had 6 to 7 episodes in the last year and half. The patient' s PTTs were elevated satisfactorily. Patient converted to normal sinus rhythm on his own around noon. On 08/13/17, the patient was discussed with Dr. Saenz while in the hospital. The patient's kidney function was still satisfactory and hence he does not need to use his dialysis catheter, but he is not a candidate for NOAC therapy and he was started on warfarin for anticoagulation. The patient was not able to be put on Lovenox. Patient was discussed with Cardiology, and it was deemed that the patient cannot be bridged with warfarin due to low risk for mural thrombus. The patient was amenable to discharge on warfarin, to have his INR checked in 3 days, to follow up with Dr. Selene Conn within 1 week, and continue to follow with Dr. Glass, outpatient costing analyst. The patient was also started on amiodarone 200 mg p.o. b.i.d. for 1 week and then amiodarone 200 mg daily from then on for rhythm control. PHYSICAL EXAMINATION: General: The patient is an 86-year-old male who appears stated age and sitting comfortably in bed, in no acute distress. Vital signs at the time of discharge: Temperature 97.5, heart rate 59, respiratory rate 20 , oxygen saturation 100% on room air, blood pressure 116/51. HEENT: Head normocephalic, atraumatic. Sclerae anicteric. No conjunctival injection. Nasal mucosa is moist. Oral mucosa moist. No pharyngeal erythema, discharge, or exudates. Neck: Supple, nontender, no carotid bruits auscultated. Cardiac : Regular rate and rhythm. Grade 2/6 holosystolic murmur, heard best at the apex. Pulses 2+ in bilateral dorsalis pedis, posterior tibialis, and radial areas. No bilateral lower extremity edema. Respiratory: Clear to auscultation bilaterally. No wheezes, rales, or rhonchi. Abdomen: Soft, nontender, nondistended. Bowel sounds present, normoactive in all 4 quadrants. No hepatosplenomegaly. No abdominal bruits auscultated. Genitourinary: No suprapubic tenderness or CVA tenderness. The patient has a peritoneal dialysis catheter in the lower aspect of the abdomen. Skin: Clean, dry. The patient has a area corresponding to a previous biopsy site for melanoma, which has no discharge. Neuro: Cranial nerves II through XII intact. The patient has numbness intermittently in his left hand, but he previously had a carpal tunnel release on his right. No other focal deficits. Alert and oriented x3. Psychiatric: Pleasant and cooperative. LABORATORY DATA: Of note, white blood cell count 8.7, hematocrit 27, platelet count 122. INR 0.88, PTT 34.4, repeat 67.3. Sodium 137, potassium 3.3, chloride 105, carbon dioxide 20, anion gap 12, BUN 86, creatinine 4.8, glucose 141, calcium 10.5, magnesium 2.8, AST 14, ALT 13, alkaline phosphatase 32, troponin I 0.06, repeat 0.08, repeat 0.23, repeat 0.14, repeat 0.23, repeat 0.27. BNP 175. Triglycerides 116, cholesterol 116, LDL cholesterol 69, HDL cholesterol 23.9. DISCHARGE PLAN: The patient will be discharged to the home. The patient should follow up with his primary care provider, Dr. Selene Conn, for management and outpatient costing analyst Dr. Katie Glass for management of his Coumadin therapy. The patient should check an INR in 3 days. It should be followed until it reaches a therapeutic range between 2 and 3. The patient should have his BMP trended as well as he needs therapy for is chronic kidney disease. The patient to stop taking Plavix. The patient should take amiodarone as described above. The patient should return to the hospital for chest pain, shortness of breath, and any alarming symptoms. The patient should engage in activity as tolerated. The patient should have renal heart healthy diet, avoiding caffeine. TIME SPENT: Approximately 75 minutes was spent on this discharge, 45 of which was spent [id number] with the patient obtaining history and physical and discussing treatment plan. CYN REA [id number]/[facility] #: [id number] REA
== END 2017-08-13 17:11 | disposition home or self-care (01) | DRG 309 ==
LOC: ED 01:41 → MEDTELE 03:30
PROVIDERS: ADMIT Pediatrics; ATTEND Internal Medicine
DX: I48.0 Paroxysmal atrial fibrillation (principal); I69.354 Hemiplegia and hemiparesis following cerebral infarction affecting left non-dominant side; N18.4 Chronic kidney disease, stage 4 (severe); I12.9 Hypertensive chronic kidney disease with stage 1 through stage 4 chronic kidney disease, or unspecified chronic kidney disease; E78.5 Hyperlipidemia, unspecified; M10.9 Gout, unspecified; Z85.820 Personal history of malignant melanoma of skin; Z79.82 Long term (current) use of aspirin; Z79.899 Other long term (current) drug therapy; Z80.0 Family history of malignant neoplasm of digestive organs
CPT/HCPCS: 36415; 71045; 80053; 80061; 83605; 83735; 83880; 84443; 84484; 85025; 85610; 85730; 93005; A9270-GY

== ENCOUNTER 2018-07-25 14:50 | Emergency (ER) | payer MEDICARE ==
[2018-07-25] MEDS ORDERED: NS 0.9% 250 ML* 250 ML IV ONE (15:17)
--- NOTE | 2018-07-25 15:27 | ED ---
Dizziness - HPI Summary HPI Summary: Patient is a 87 y/o M presenting to ED with complaints of light-headedness, fatigue, and hypotension today and difficulty sleeping well for the last few days. He is being weaned off of hydralazine and coreg due to hypotension. Patient is a perotineal dialysis patient. Last time he went in to see dialysis nurse was a week ago. No fever, no chills, no shakiness, no recent weight loss, no SOB reported. Ashok nurse was called today, was advised to come to ED. PMHx of afib. Patient states he did not experience palpitations today, but states that she could feel palpitations. HR was noted to be abnormal on triage. Since then, no palpitations reported by either patient or . Patient is on losartan, amlodipine, Coumadin. On triage, pain is denied, nothing is noted to aggravate/alleviate Sx. Home medications, allergies, and nurse's note reviewed. - History Of Current Complaint Chief Complaint: EDDizziness Stated Complaint: LIGHT HEADED/IRREGULAR PULSE Time Seen by Provider: 07/25/18 15:15 Hx Obtained From: Patient, Family/Membership Sales Representative - Onset/Duration: Still Present Timing: Constant - light-headedness, fatigue, and hypotension onset this morning Severity Currently: None - pain denied Character: Lightheaded Aggravating Factor(s): Nothing Alleviating Factor(s): Nothing Associated Signs And Symptoms: Positive: Other: - POSITIVE - LIGHT-HEADEDNESS, FATIGUE, HYPOTENSION, DIFFICULTY SLEEPING; NEGATIVE - SHAKINESS, RECENT WEIGHT LOSS. Negative: SOB, Fever, Chills - Allergies/Home Medications Allergies/Adverse Reactions: Allergies Allergy/AdvReac Type Severity Reaction Status Date / Time No Known Allergies Allergy Verified 07/25/18 14:59 Home Medications: Home Medications Allopurinol TAB* [Zyloprim 100 MG TAB*] 100 mg PO BID 07/25/18 [History Confirmed 07/25/18] Amiodarone TAB* [Cordarone Tab*] 200 mg PO DAILY 07/25/18 [History Confirmed 05/03] Aspirin EC TAB* [Ecotrin EC Low Dose 81 MG*] 81 mg PO DAILY 07/25/18 [History Confirmed 07/25/18] Calcium Acetate CAP* [Phoslo CAP*] 667 mg PO TID WITH MEALS 07/25/18 [History Confirmed 07/25/18] Calcium Polycarbophil TAB* [Fibercon TAB*] 1,875 mg PO TID 07/25/18 [History Confirmed 07/25/18] Docusate CAP* [Colace Cap*] 100 mg PO BID PRN 07/25/18 [History Confirmed ] Liothyronine TAB* [Cytomel TAB*] 25 mcg PO DAILY 07/25/18 [History Confirmed 05/03] Losartan TAB* [Cozaar TAB*] 100 mg PO DAILY 07/25/18 [History Confirmed 07/25/18 ] Multivitamins/Minerals TAB* [Theragran/minerals TAB*] 1 tab PO DAILY 07/25/18 [ History Confirmed 07/25/18] Mupirocin 2% OINT* [Bactroban 2 % Oint*] 1 applic TOPICAL DAILY PRN 07/25/18 [ History Confirmed 07/25/18] [place]-3 Fatty Acids (Nf) [Fish Oil (NF)] 1,000 mg PO DAILY 07/25/18 [History Confirmed 07/25/18] Polyethylene Glycol 3350* [Miralax*] 17 gm PO DAILY PRN 07/25/18 [History Confirmed 07/25/18] Simvastatin TAB(NF) [Zocor(NF)] 20 mg PO DAILY 07/25/18 [History Confirmed 07/25] Vit C/E/Zn/Coppr/Lutein/Zeaxan [Preservision Areds 2 Softgel] 1 cap PO DAILY 05/03 [History Confirmed 07/25/18] PMH/Surg Hx/FS Hx/Imm Hx Cardiovascular History: Reports: Hx Hypertension, Other Cardiovascular Problems/ Disorders - on coumidin, on dialysis for kidney failure GI History: Reports: Other GI Disorders - CONSTIPATION- METAMUCIL, colace History: Reports: Hx Kidney Stones - "DEBRIS" AT 22 YRS OF AGE, Other Problems/Disorders Musculoskeletal History: Reports: Hx Arthritis - GENERALIZED,, Other Musculoskeletal History - RIGHT LOWER BACK PAIN FOR PAST MONTH Sensory History: Reports: Hx Cataracts - HX, Hx Contacts or Glasses, Hx Hearing Aid Opthamlomology History: Reports: Hx Cataracts - HX, Hx Contacts or Glasses Neurological History: Reports: Hx Seizures - 1989 ONE TIME ONLY, Other Neuro Impairments/Disorders - 1989 TIA - Cancer History Cancer Type, Location and Year: basal cell carcinoma, melanoma - Surgical History Surgery Procedure, Year, and Place: 1954 TUR- [facility]. BILATERAL INGUINAL HERNIA SURG X 3 S AND 1965- [facility]. 11/27 left ARM MELANOMA - DR BRYANT [facility]. cataract surgery with lens implants - [facility] - 2007 Hx Anesthesia Reactions: No Infectious Disease History: No Infectious Disease History: Denies: Hx Clostridium Difficile, Hx Hepatitis, Hx Human Immunodeficiency Virus (HIV), Hx of Known/Suspected MRSA, Hx Shingles, Hx Tuberculosis, Traveled Outside the [place] in Last 30 Days - Family History Known Family History: Negative: Blood Disorder - Social History Alcohol Use: Rare Alcohol Amount: 1-2 DRINKS/WEEK Substance Use Type: Reports: None Smoking Status (MU): Never Smoked Tobacco Have You Smoked in the Last Year: No Review of Systems Positive: Fatigue, Other - NEGATIVE - RECENT WEIGHT LOSS, SHAKINESS; POSITIVE - DIFFICULTY SLEEPING. Negative: Fever, Chills Negative: Shortness Of Breath Neurological: Other - POSITIVE - LIGHT-HEADEDNESS All Other Systems Reviewed And Are Negative: Yes Physical Exam - Summary Physical Exam Summary: Appearance: Well appearing, no pain distress Skin: warm, dry, reflects adequate perfusion Head/face: normal Eyes: EOMI, EDWARDO; pallor of conjunctiva ENT: mucous membranes moist but pale; has hearing aids Neck: supple, non-tender Respiratory: CTA, breath sounds present Cardiovascular: RRR, pulses symmetrical, systolic murmur Abdomen: non-tender, soft, slightly protuberant Bowel Sounds: present Musculoskeletal: normal, strength/ROM intact Neuro: normal, sensory motor intact, A&Ox3 Triage Information Reviewed: Yes Vital Signs On Initial Exam: Initial Vitals Temp Pulse Resp BP Pulse Ox 99.1 F 110 18 93/61 96 07/25/18 14:55 07/25/18 14:55 07/25/18 14:55 07/25/18 14:55 07/25/18 14:55 Vital Signs Reviewed: Yes Diagnostics - Vital Signs Vital Signs Temp Pulse Resp BP Pulse Ox 07/25/18 14:55 99.1 F 110 18 93/61 96 - Laboratory Result Diagrams: 07/25/18 15:43 07/25/18 15:43 Lab Statement: Any lab studies that have been ordered have been reviewed, and results considered in the medical decision making process. - Radiology CXR Radiology Interpretation Completed By: Radiologist Summary of Radiographic Findings: IMPRESSION: No radiographic evidence for acute cardiopulmonary abnormality on this. portable chest x-ray. This report was reviewed by ED physician. - EKG 1526 Cardiac Rate: NL - rate of 64 BPM EKG Rhythm: Sinus Rhythm ST Segment: Normal Summary of EKG Findings: EKG showed NSR with rate of 64 BPM, normal axis, intervals, and ST. Re-Evaluation - Re-Evaluation First Eval Re-Evaluation Time: 15:28 Comment: Spoke with his dialysis nurse, states that fluid has been clear, no abdominal pain Second Eval Re-Evaluation Time: 17:25 Comment: Results of labs and tests were discussed with patient, he will be discharged to home. Dizzy Course/Dx - Course Course Of Treatment: Nurse's notes reviewed. Patient with intermittent atrial fibrillation that may be causing symptoms. He has been orthostatic likely as a result of his dialysis and end-stage renal disease. He was improved here with 250 mL of IV fluids. There is no evidence for infection. We are going to cut his losartan dose in half. He'll follow closely with his primary care physician. - Diagnoses Differential Diagnosis/HQI/PQRI: Hyperventilation, Hypovolemia, Labyrinthitis, Medication Reaction, Metabolic Abnormality, Vasovagal Reaction Provider Diagnoses: Orthostatic hypotension, End stage renal disease, Hyperphosphatemia Discharge - Sign-Out/Discharge Documenting (check all that apply): Patient Departure - discharge - Discharge Plan Condition: Improved Disposition: HOME Patient Education Materials: Hypotension (ED) Referrals: Selene Conn MD [Primary Care Provider] - Additional Instructions: Drink plenty of fluids. Change Losartan to 50 mg at night. Talk with your nail galvanizer about continuing or decreasing the dose of your Lasix. Discontinue carvedilol. Return if worse, new symptoms or other concerns. Follow-up with your nail galvanizer as soon as possible. - Billing Disposition and Condition Condition: IMPROVED Disposition: Home - Attestation Statements Document Initiated by Scribe: Yes Documenting Scribe: HAYLEE HAYWARD Provider For Whom Scribe is Documenting (Include Credential): MERY SORENSEN MD Scribe Attestation: IHAYLEE , scribed for MERY SORENSEN MD on 07/25/18 at 1836. Scribe Documentation Reviewed: Yes Provider Attestation: The documentation as recorded by the scribe, HAYLEE HAYWARD accurately reflects the service I personally performed and the decisions made by me, MERY SORENSEN MD Status of Scribe Document: Viewed
[2018-07-25 15:52] LABS: ABS Basophils 0.1 10^3/ul (0-0.2); ABS Eosinophils 0.1 10^3/ul (0-0.6); ABS Lymphocytes 1.1 10^3/ul (1.0-4.8); ABS Neutrophils 4.6 10^3/ul (1.5-7.7); ABS Nucleated RBC 0 10^3/ul; Eosinophil % 2.1 %; Hematocrit 32 % (42-52); Hemoglobin 10.9 g/dl (14.0-18.0); Lymphocyte % 16.3 %; Mean Corpuscular HGB Conc 34 g/dl (31-36); Mean Corpuscular Hemoglobin 34 pg (27-31); Mean Corpuscular Volume 101 fL (80-94); Mean Platelet Volume 9.4 fL (7.4-10.4); Nucleated Red Blood Cells % 0; Platelet Count 123 10^3/ul (150-450); Red Blood Count 3.19 10^6/ul (4.00-5.40); Red Cell Distribution Width 14 % (10.5-15); White Blood Count 6.9 10^3/ul (3.5-10.8)
[2018-07-25 16:02] LABS: Activated Partial Thrombo Time 42.2 seconds (26.0-36.3); INR 2.65 (0.77-1.02)
[2018-07-25 16:13] LABS: Albumin 3.7 g/dL (3.2-5.2); Albumin/Globulin Ratio 1.3 (1-3); BUN/Creatinine Ratio 8.2 (8-20); C Reactive Protein 1.74 mg/L (<8.01); Calcium 10.2 mg/dL (8.6-10.3); EGFR African American 5.5 (>60); EGFR Non-African American 4.6 (>60); Globulin 2.8 g/dL (2-4); Potassium 4.7 mmol/L (3.5-5.0); Total Bilirubin 0.3 mg/dL (0.2-1.0); Total Protein 6.5 g/dL (6.4-8.9)
[2018-07-25 16:16] LABS: Troponin I 0.07 ng/mL (<0.04)
[2018-07-25 16:21] LABS: Phosphorus 7.4 mg/dL (2.5-5.0)
[2018-07-25 17:59] VITALS: BP 119/67
== END 2018-07-25 17:14 | disposition home or self-care (01) ==
LOC: ED 14:50
DX: I95.1 Orthostatic hypotension (principal); E83.39 Other disorders of phosphorus metabolism; Z85.820 Personal history of malignant melanoma of skin; Z87.442 Personal history of urinary calculi; I48.91 Unspecified atrial fibrillation; Z79.01 Long term (current) use of anticoagulants; Z79.82 Long term (current) use of aspirin; I12.9 Hypertensive chronic kidney disease with stage 1 through stage 4 chronic kidney disease, or unspecified chronic kidney disease; N18.9 Chronic kidney disease, unspecified
CPT/HCPCS: 36415; 71045; 80053; 83605; 84100; 84484; 85025; 85610; 85730; 86140; 87040; 93005; 96360; 99284

== ENCOUNTER 2018-11-29 18:03 | Inpatient (IN) | payer MEDICARE ==
--- OUTSIDE RECORDS SUMMARY | 2018-11-29 18:41 | XMS REPORT | Continuity of Care Document ---
:1930 External Reference #:[id number] Author Name Selene Conn M.D. Address [address] [facility] [place] [address] Care Team Providers Name Role Phone Selene Conn M.D. 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 Primary Care Physician Unavailable Payers Date Identification Numbers Payment Provider Subscriber Policy Number: [id number] [place] PayID: [id number] [address] [place] [address] Effective: 2014 Policy Number: [id number] [facility] David Shen Options PayID: [id number] [address] [place] [address] Advance Directives Description No Information Available Problems Active Problems Provider Date Chronic renal failure Selene Conn M.D. Onset: 03/31/2015 H/O: TIA Selene Conn M.D. Onset: 03/31/2015 Benign essential hypertension Selene Conn M.D. Onset: 03/31/2015 Gout Selene Conn M.D. Onset: 03/31/2015 Hyperlipidemia Selene Conn M.D. Onset: 03/31/2015 Malignant melanoma Selene Conn M.D. Onset: 03/31/2015 Peritoneal dialysis Selene Conn M.D. Onset: 03/31/2015 Hearing loss Selene Conn M.D. Onset: 03/31/2015 End-stage renal disease Selene Conn M.D. Onset: 06/30/2015 History of malignant melanoma of the skin Selene Conn M.D. Onset: 2015 Basal cell carcinoma of face Selene Conn M.D. Onset: 01/25/2016 Coronary atherosclerosis Selene Conn M.D. Onset: 04/14/2016 Paroxysmal atrial fibrillation Selene Conn M.D. Onset: 08/20/2017 Hypothyroidism Selene Conn M.D. Onset: 10/16/2018 Family History Date Family Member(s) Observation Comments : (age 42 Years) Father due to Colon Cancer : (age 102 Years) Mother due to Hypertension Children 4 Social History Type Date Description Comments Sex Unknown Marital Status Legal Status: Lives With Spouse Diet Healthy, Well Balanced Sleep Reports continuity disturbances Sleep Typically sleeps 7 hours a night Tobacco Use Start: Unknown Nonsmoker ETOH Use Rare Recreational Drug Use Never Used Drugs Tobacco Use Start: Unknown Nonsmoker Smoking Status Reviewed: 03/05/18 Nonsmoker Exercise Type/Frequency Exercises regularly Allergies, Adverse Reactions, Alerts Description No Known Drug Allergies Medications Active Medications SIG Qnty Indications Ordering Date Provider Liothyronine Sodium 1 tabs by mouth 90tabs Selene Ivoryton, 11/20/2018 every morning with M.D. 25mcg Tablets 50mcg Liothyronine Sodium 1 by mouth every 90tabs Selene Ivoryton, 11/20/2018 day with 25mcg M.D. 50mcg Tablets Dialyvite/Zinc 1 tab daily [facility], 10/16/2018 Tablets M.D. Auryxia 1 tab with meals [facility], 10/16/2018 1GM 210 mg(Fe) tid M.D. Tablets Pulse Oximeter For test as needed for R06.02 Selene Conn, 11/13/2017 Finger shortness of M.D. [facility] breath I48.0 I25.10 Preservision Areds 2 2 by mouth every day Unknown Areds 2 Capsules Allopurinol Take 2 Tablets Every 180tabs Wesly Sin, 100mg Tablets Day M.D. Simvastatin Take 1 Tablet Every 90tabs Skip Tillman, 20mg Tablets Day M.D. Miralax 1 tablespoon full Unknown [id number] Packet every day with large glass water Warfarin Sodium 1 by mouth every day Unknown 5mg Tablets or as directed Amiodarone HCL 1 by mouth every day Unknown 200mg Tablets Fish Oil 1 by mouth every day Unknown 1000mg Capsules Fibercon 3 po qd Unknown 625mg Tablets Aspir-81 1 by mouth every day Unknown 81mg Tablets DR Raglandzihugh HCL take 1 tablet three 30tabs Ajay MarmolejoD. 25mg Tablets times a day if needed for dizziness Colchicine 1 tab with attack as 10caps Estela Marmolejo.D. 0.6mg Capsules needed History Medications Medrol as directed; december 03un R21 Jordana Saldana, 01/12/2016 - 4mg TBPK fill w/ generic Afnp-C 01/19/2016 Amoxicillin 1 by mouth three 30caps J01.90 Caterina Jose, 12/29/2015 - 500mg times a day x 10d ACTUARY 01/12/2016 Capsules Docusate Sodium 1 tab twice a day 60caps K59.09 Selene Ivoryton, 11/01/2015 - 100mg as needed M.D. 08/21/2018 Capsules Colace 1 twice a day as 60caps 564.00 Selene Ivoryton, 03/31/2015 - 100mg Capsules needed M.D. 11/01/2015 Liothyronine Sodium 1 1/2 tab by Unknown - mouth every day 11/20/2018 50mcg Tablets Davita 1 qd Unknown - 10/16/2018 Liothyronine Sodium 1 by mouth every Selene Conn, - day M.D. 11/07/2018 50mcg Tablets Calicum Acitate 676 mg 2 caps q Unknown - meal 1 with a 10/16/2018 snack Furosemide take one tablet Unknown - 80mg by mouth twice 10/16/2018 Tablets daily for fluid Auryxia 1 po tid Unknown - 1GM 210 08/21/2018 mg(Fe) Tablets Clopidogrel 1 by mouth every Unknown - Bisulfate day 08/19/2017 75mg Tablets Coreg take one tablet Unknown - 6.25mg Tablets by mouth twice a 08/21/2018 day Metamucil as directed Unknown - Wafer 04/24/2017 Valium 2 po 45 minutes Unknown - 5mg Tablets prior to mri, 03/31/2015 repeat x1 Vitamin D take 1 capsule by Unknown - (Ergocalciferol) mouth once a 12/29/2015 month [id number] Capsules Clopidogrel 1 by mouth every Unknown - Bisulfate day 12/29/2015 75mg Tablets Calcitriol take one capsule Unknown - 0.25mcg by mouth qd 12/29/2015 Capsules Hydralazine HCL 2 po tid Unknown - 25mg 07/17/2018 Tablets Metoprolol Succinate 1 by mouth every 90tabs Selene Conn, - ER day M.D. 04/14/2016 50mg Tablets ER 24HR Losartan Potassium 1 by mouth every Unknown - day 08/21/2018 100mg Tablets Furosemide 1 by mouth bid Unknown - 40mg 08/21/2018 Tablets Immunizations CPT Code Status Date Vaccine Lot # [id number] Given 04/25/2017 High-Dose, Influenza Virus Vacccine-fluzone 65 and [id number] older 93947 Given 10/20/2016 Pneumococcal Conjugate Vacc-13 [id number] Given 04/14/2016 High-Dose, Influenza Virus Vacccine-fluzone 65 and [id number] older 69568 Given 03/31/2015 High-Dose, Influenza Virus Vacccine-fluzone 65 and [id number] older Vital Signs Date Vital Result Comment 11/20/2018 11:08am BP Systolic 132 mmHg BP Diastolic 70 mmHg Heart Rate 68 /min Body Temperature 97.8 F Respiratory Rate 16 /min Height 67 inches 5'7" Weight 184.00 lb BMI (Body Mass Index) 28.8 kg/m2 10/16/2018 9:07am BP Systolic 102 mmHg BP Diastolic 50 mmHg Heart Rate 62 /min Body Temperature 97.9 F Respiratory Rate 20 /min Height 67 inches 5'7" Weight 186.00 lb BMI (Body Mass Index) 29.1 kg/m2 08/21/2018 3:33pm BP Systolic 98 mmHg BP Diastolic 60 mmHg Heart Rate 65 /min Body Temperature 97.5 F Respiratory Rate 16 /min Height 67 inches 5'7" Weight 182.00 lb BMI (Body Mass Index) 28.5 kg/m2 07/17/2018 2:53pm BP Systolic 134 mmHg BP Diastolic 64 mmHg Heart Rate 56 /min Body Temperature 97.9 F Respiratory Rate 16 /min Height 67 inches 5'7" Weight 183.00 lb BMI (Body Mass Index) 28.7 kg/m2 03/05/2018 3:31pm BP Systolic 136 mmHg BP Diastolic 70 mmHg Heart Rate 66 /min Body Temperature 97.9 F Respiratory Rate 18 /min Height 67 inches 5'7" Weight 181.00 lb BMI (Body Mass Index) 28.3 kg/m2 01/15/2018 10:10am BP Systolic 122 mmHg BP Diastolic 62 mmHg Heart Rate 52 /min Body Temperature 98.0 F Respiratory Rate 16 /min Height 67 inches 5'7" Weight 173.00 lb BMI (Body Mass Index) 27.1 kg/m2 11/13/2017 3:47pm BP Systolic 116 mmHg BP Diastolic 60 mmHg Heart Rate 60 /min Body Temperature 98.8 F Height 67 inches 5'7" Weight 177.00 lb BMI (Body Mass Index) 27.7 kg/m2 08/20/2017 3:29pm BP Systolic 150 mmHg BP Diastolic 68 mmHg Heart Rate 76 /min Body Temperature 98.4 F Respiratory Rate 16 /min Height 67 inches 5'7" Weight 175.00 lb BMI (Body Mass Index) 27.4 kg/m2 04/25/2017 9:08am BP Systolic 154 mmHg BP Diastolic 60 mmHg Heart Rate 76 /min Body Temperature 97.9 F Respiratory Rate 16 /min Height 67 inches 5'7" Weight 175.00 lb BMI (Body Mass Index) 27.4 kg/m2 10/20/2016 9:41am BP Systolic 146 mmHg BP Diastolic 60 mmHg Heart Rate 68 /min Respiratory Rate 20 /min Height 67 inches 5'7" Weight 176.50 lb BMI (Body Mass Index) 27.6 kg/m2 04/14/2016 11:25am BP Systolic 130 mmHg BP Diastolic 56 mmHg Heart Rate 68 /min Body Temperature 98.1 F Respiratory Rate 16 /min Height 67 inches 5'7" Weight 178.00 lb BMI (Body Mass Index) 27.9 kg/m2 01/12/2016 2:24pm BP Systolic 156 mmHg BP Diastolic 70 mmHg Heart Rate 60 /min Body Temperature 97.9 F Respiratory Rate 16 /min Height 67 inches 5'7" Weight 176.50 lb BMI (Body Mass Index) 27.6 kg/m2 12/29/2015 1:46pm BP Systolic 106 mmHg BP Diastolic 60 mmHg Heart Rate 66 /min Body Temperature 98.6 F Respiratory Rate 16 /min Height 67 inches 5'7" Weight 179.38 lb BMI (Body Mass Index) 28.1 kg/m2 11/01/2015 1:57pm BP Systolic 146 mmHg BP Diastolic 74 mmHg Heart Rate 74 /min Body Temperature 98.5 F Height 67 inches 5'7" Weight 178.00 lb BMI (Body Mass Index) 27.9 kg/m2 06/30/2015 9:07am BP Systolic 128 mmHg BP Diastolic 66 mmHg Heart Rate 66 /min Body Temperature 97.3 F Respiratory Rate 16 /min Height 67 inches 5'7" Weight 180.12 lb BMI (Body Mass Index) 28.2 kg/m2 03/31/2015 9:22am BP Systolic 138 mmHg BP Diastolic 60 mmHg Heart Rate 66 /min Body Temperature 97.7 F Respiratory Rate 16 /min Height 67 inches 5'7" Weight 176.12 lb BMI (Body Mass Index) 27.6 kg/m2 Right Visual Acuity Distance 20/70 corrected Left Visual Acuity Distance 20/30 corrected 03/03/2015 1:17pm BP Systolic 114 mmHg BP Diastolic 50 mmHg Heart Rate 70 /min Body Temperature 97.7 F Height 67 inches 5'7" Weight 177.00 lb BMI (Body Mass Index) 27.7 kg/m2 Results Test Date Facility Test Result H/L Range Note Laboratory test 10/23/2018 [facility] ([facility] Lab SEE ATTACHED finding Test Inr/Protime 08/21/2018 [facility] Inr 1.78 High 0.77-1.02 Inr/Protime 08/01/2018 [facility] Inr 3.26 High 0.77-1.02 CBC Auto Diff 07/25/2018 [facility] White Blood 6.9 10^3/uL N 3.5-10.8 Count Red Blood Count 3.19 10^6/uL Low 4.00-5.40 Hemoglobin 10.9 g/dL Low 14.0-18.0 Hematocrit 32 % Low 42-52 Mean Corpuscular Volume 101 fL High 80-94 Mean Corpuscular Hemoglobin 34 pg High 27-31 Mean Corpuscular HGB Conc 34 g/dL N 31-36 Red Cell Distribution Width 14 % N 10.5-15 Platelet Count 123 10^3/uL Low 150-450 Mean Platelet Volume 9.4 fL N 7.4-10.4 Abs Neutrophils 4.6 10^3/uL N 1.5-7.7 Abs Lymphocytes 1.1 10^3/uL N 1.0-4.8 Abs Monocytes 1.0 10^3/uL High 0-0.8 Abs Eosinophils 0.1 10^3/uL N 0-0.6 Abs Basophils 0.1 10^3/uL N 0-0.2 Abs Nucleated RBC 0 10^3/uL Granulocyte % 66.8 % Lymphocyte % 16.3 % Monocyte % 13.8 % Eosinophil % 2.1 % Basophil % 1.0 % Nucleated Red Blood Cells % 0 Inr/Protime 07/25/2018 [facility] Inr 2.65 High 0.77-1.02 Laboratory test 07/25/2018 [facility] Partial Thrombo 42.2 seconds High 26.0- 36.3 finding Time PTT Lactic Acid 0.5 mmol/L N 0.5-2.0 1 Comp Metabolic Panel 07/25/2018 [facility] Sodium 139 mmol/L N 135-145 Potassium 4.7 mmol/L N 3.5-5.0 Chloride 100 mmol/L Low 101-111 Co2 Carbon Dioxide 28 mmol/L N 22-32 Anion Gap 11 mmol/L N 2-11 Glucose 106 mg/dL High 70-100 Blood Urea Nitrogen 88 mg/dL High 6-24 Creatinine 10.77 mg/dL High 0.67-1.17 BUN/Creatinine Ratio 8.2 N 8-20 Calcium 10.2 mg/dL N 8.6-10.3 Total Protein 6.5 g/dL N 6.4-8.9 Albumin 3.7 g/dL N 3.2-5.2 Globulin 2.8 g/dL N 2-4 Albumin/Globulin Ratio 1.3 N 1-3 Total Bilirubin 0.30 mg/dL N 0.2-1.0 Alkaline Phosphatase 45 U/L N 34-104 Alt 22 U/L N 7-52 Ast 15 U/L N 13-39 Egfr Non- 4.6 >60 Egfr 5.5 >60 2 Laboratory test finding 07/25/2018 [facility] C Reactive Protein 1.74 mg/L N < 8.01 Troponin I 0.07 ng/mL High <0.04 3 Phosphorus 7.4 mg/dL High 2.5-5.0 Blood Culture SEE RESULT BELOW 4 Inr/Protime 04/02/2018 [facility] Inr 3.66 High 0.77-1.02 Inr/Protime 03/04/2018 [facility] Inr 3.29 High 0.77-1.02 Comprehensive Metabolic 12/31/2017 [place]) Sodium 144 mEq/L 134-149 Prof Potassium 3.6 mEq/L 3.6-5.5 Chloride 101 mEq/L 94-112 Carbon Dioxide 30 mEq/L 21-32 Glucose 120 mg/dL High 70-105 BUN 65 mg/dL High 6-26 Creatinine 6.0 mg/dL High 0.6-1.4 BUN/Creat Ratio 10.8 CALC 8.0-36.0 Calcium 8.7 mg/dL 8.6-10.2 Total Protein 6.2 g/dL Low 6.4-8.3 5 Albumin 3.9 g/dL 3.8-5.5 Globulin 2.3 g/dL 2.0-4.8 A/G Ratio 1.7 CALC 0.6-2.3 Alk. Phosphatase 42 U/L 22-95 Alt (SGPT) 24 U/L 7-35 Ast (Sgot) 23 U/L 5-34 Total Bilirubin 0.4 mg/dL 0.2-1.3 GFR Non- 10 ml/min/1.73m^ Low >=60 GFR 12 ml/min/1.73m^ Low >=60 Lipid Profile 12/31/2017 [place]([facility]) Cholesterol 126 mg/dL 120- 200 Triglycerides 108 mg/dL 30-200 HDL Cholesterol 28 mg/dL Low 30-70 LDL (Calculated) 76 CALC 0-129 VLDL Cholesterol 22 mg/dL 0-50 HDL Risk Factor 4.5 CALC High 0.0-4.4 CBC Electronic a 12/31/2017 [place]([facility]) WBC 5.7 x10^3/UL 4.0- 10.0 RBC 3.16 x10^6/UL Low 3.93-6.00 HGB 10.8 g/dL Low 12.0-17.0 HCT 33 % Low 35-50 MCV 103.8 fL High 80.0-95.0 MCH 34.2 pg High 25.6-32.2 MCHC 33.2 g/dL 32.2-36.0 6 RDW-CV 15.0 % High 11.6-14.4 PLT 107 x10^3/UL Low 163-400 7 MPV 11.6 fL 9.4-12.4 Delia# 3.65 x10^3/UL 1.56-6.13 Lymph# 1.17 x10^3/UL Low 1.18-3.74 Dodge# 0.73 x10^3/UL 0.24-0.82 Eos # 0.1 x10^3/UL 0.0-0.5 Baso # 0.04 x10^3/UL 0.01-0.08 Delia% 63.6 % 34.0-70.0 Lymph % 20.4 % 20.0-52.0 Dodge% 12.7 % High 5.0-12.0 Eos% 2.4 % 0.7-7.0 Baso% 0.7 % 0.1-1.2 Laboratory test 12/31/2017 [place](a) Free T4 0.49 ng/dL Low 0.75-1.54 finding TSH 42.10 mIU/L High 0.50-6.00 Laboratory test 12/31/2017 [facility] Hemoglobin A1c 5.4 % 4.1-5.7 finding (607)- - (Fma) Laboratory test 08/16/2017 [facility] Inr/Protime 1.15 High 0.77-1.02 finding Laboratory test 08/13/2017 [facility] Partial Thrombo 31.4 seconds N 26.0-36.3 finding Time PTT Comp Metabolic 08/13/2017 [facility] Sodium 137 mmol/L N 133-145 Panel Potassium 3.3 mmol/L Low 3.5-5.0 Chloride 105 mmol/L N 101-111 Co2 Carbon Dioxide 20 mmol/L Low 22-32 Anion Gap 12 mmol/L High 2-11 Glucose 141 mg/dL High 70-100 Blood Urea Nitrogen 86 mg/dL High 6-24 Creatinine 4.80 mg/dL High 0.67-1.17 BUN/Creatinine Ratio 17.9 N 8-20 Calcium 10.5 mg/dL High 8.6-10.3 Total Protein 6.6 g/dL N 6.4-8.9 Albumin 3.7 g/dL N 3.2-5.2 Globulin 2.9 g/dL N 2-4 Albumin/Globulin Ratio 1.3 N 1-3 Total Bilirubin 0.40 mg/dL N 0.2-1.0 Alkaline Phosphatase 32 U/L Low 34-104 Alt 13 U/L N 7-52 Ast 14 U/L N 13-39 Egfr Non- 11.6 >60 Egfr 15.0 >60 8 Laboratory test finding 08/13/2017 [facility] Troponin-I (TnI) 0.06 ng/mL High < 0.04 9 TSH (Thyroid Stim Horm) 3.84 mcIU/mL N 0.34-5.60 B-Type Natriuretic Peptide BNP 175 pg/mL High 10 Magnesium 2.8 mg/dL High 1.9-2.7 CBC Auto Diff 08/13/2017 [facility] White Blood Count 8.7 10^3/uL N 3.5-10.8 Red Blood Count 3.68 10^6/uL Low 4.0-5.4 Hemoglobin 12.2 g/dL Low 14.0-18.0 Hematocrit 37 % Low 42-52 Mean Corpuscular Volume 100 fL High 80-94 Mean Corpuscular Hemoglobin 33 pg High 27-31 Mean Corpuscular HGB Conc 33 g/dL N 31-36 Red Cell Distribution Width 15 % N 10.5-15 Platelet Count 122 10^3/uL Low 150-450 Mean Platelet Volume 10 um3 N 7.4-10.4 Abs Neutrophils 6.4 10^3/uL N 1.5-7.7 Abs Lymphocytes 1.2 10^3/uL N 1.0-4.8 Abs Monocytes 0.8 10^3/uL N 0-0.8 Abs Eosinophils 0.2 10^3/uL N 0-0.6 Abs Basophils 0.1 10^3/uL N 0-0.2 Abs Nucleated RBC 0 10^3/uL Granulocyte % 74.1 % N 38-83 Lymphocyte % 13.8 % Low 25-47 Monocyte % 9.8 % High 1-9 Eosinophil % 1.7 % N 0-6 Basophil % 0.6 % N 0-2 Nucleated Red Blood Cells % 0.1 Laboratory test finding 08/13/2017 [facility] Lactic Acid 0.6 mmol/L N 0.5-2.0 11 Inr/Protime 08/13/2017 [facility] Inr 0.88 N 0.77-1.02 CBC No Diff 04/20/2017 [facility] White Blood Count 5.6 10^3/uL N 3.5-10.8 Red Blood Count 3.61 10^6/uL Low 4.0-5.4 Hemoglobin 11.9 g/dL Low 14.0-18.0 Hematocrit 36 % Low 42-52 Mean Corpuscular Volume 98 fL High 80-94 Mean Corpuscular Hemoglobin 33 pg High 27-31 Mean Corpuscular HGB Conc 34 g/dL N 31-36 Red Cell Distribution Width 14 % N 10.5-15 Platelet Count 113 10^3/uL Low 150-450 Mean Platelet Volume 10 um3 N 7.4-10.4 Comp Metabolic Panel 04/20/2017 [facility] Sodium 139 mmol/L N 133-145 Potassium 3.9 mmol/L N 3.5-5.0 Chloride 105 mmol/L N 101-111 Co2 Carbon Dioxide 25 mmol/L N 22-32 Anion Gap 9 mmol/L N 2-11 Glucose 104 mg/dL High 70-100 Blood Urea Nitrogen 73 mg/dL High 6-24 Creatinine 4.81 mg/dL High 0.67-1.17 One Over Creatinine 0.20 mg/dL Low 0.67-1.17 BUN/Creatinine Ratio 15.2 N 8-20 Calcium 9.8 mg/dL N 8.6-10.3 Total Protein 6.5 g/dL N 6.4-8.9 Albumin 3.8 g/dL N 3.2-5.2 Globulin 2.7 g/dL N 2-4 Albumin/Globulin Ratio 1.4 N 1-3 Total Bilirubin 0.40 mg/dL N 0.2-1.0 Alkaline Phosphatase 39 U/L N 34-104 Alt 15 U/L N 7-52 Ast 16 U/L N 13-39 Egfr Non- 11.6 N >60 Egfr 14.9 N >60 12 Lipid Profile (Trig/Chol/HDL) 04/20/2017 [facility] Triglycerides 128 mg/dL N 13 Cholesterol 113 mg/dL N 14 HDL Cholesterol 23.3 mg/dL N 15 LDL Cholesterol 64 mg/dL N 16 Creatinine Clearance 04/20/2017 [facility] Creatinine 4.82 mg/dL High 0.51-0.95 Urine Random Creatinine 46.21 mg/dL N Creatinine Clearance 18 mL/min Low 97-137 Liver Function Panel 04/20/2017 [facility] Direct Bilirubin 0.10 mg/dL N 0.03- 0.18 Indirect Bilirubin 0.3 mg/dL N 0.3-1.0 Laboratory test finding 04/20/2017 [facility] Uric Acid 4.3 mg/dL Low 4.4-7.6 Phosphorus 6.3 mg/dL High 2.5-5.0 Magnesium 2.6 mg/dL N 1.9-2.7 Iron & Iron Binding Capacity 04/20/2017 [facility] Iron 74 g/dL N 50-212 Unsaturated Iron Binding 193 g/dL N Total Iron Binding Capacity 267 g/dL N 250-450 % Iron Saturation 28 % N 15-55 Laboratory test finding 04/20/2017 [facility] Ferritin 69.7 ng/mL N 24-336 Urea Nitrogen Clearance 04/20/2017 [facility] BUN Serum 74 mg/dL High 6-24 Urine Collection Time 24 N Urine Total Volume 2700 mL N Urine Random Urea Nitrogen 307 mg/dL N Urea Nitrogen Clearance 8 mL/min Low 59-99 Total Protein 24HR Urine 04/20/2017 [facility] Urine Collection Time 24 N Urine Total Volume 2700 mL N Urine Random Total Protein 107 mg/dL N Urine Total Protein/24HR 2889 mg/24Hr High 0-165 Comp Metabolic Panel 01/18/2017 [facility] Sodium 140 mmol/L N 133-145 Potassium 3.7 mmol/L N 3.5-5.0 Chloride 106 mmol/L N 101-111 Co2 Carbon Dioxide 24 mmol/L N 22-32 Anion Gap 10 mmol/L N 2-11 Glucose 108 mg/dL High 70-100 Blood Urea Nitrogen 77 mg/dL High 6-24 Creatinine 4.42 mg/dL High 0.67-1.17 One Over Creatinine 0.20 mg/dL Low 0.67-1.17 BUN/Creatinine Ratio 17.4 N 8-20 Calcium 10.0 mg/dL N 8.6-10.3 Total Protein 6.6 g/dL N 6.4-8.9 Albumin 3.9 g/dL N 3.2-5.2 Globulin 2.7 g/dL N 2-4 Albumin/Globulin Ratio 1.4 N 1-3 Total Bilirubin 0.60 mg/dL N 0.2-1.0 Alkaline Phosphatase 33 U/L Low 34-104 Alt 13 U/L N 7-52 Ast 16 U/L N 13-39 Egfr Non- 12.8 N >60 Egfr 16.5 N >60 17 Lipid Profile (Trig/Chol/HDL) 01/18/2017 [facility] Triglycerides 137 mg/dL N 18 Cholesterol 122 mg/dL N 19 HDL Cholesterol 24.5 mg/dL N 20 LDL Cholesterol 70 mg/dL N 21 Creatinine Clearance 01/18/2017 [facility] Creatinine 4.48 mg/dL High 0.51-0.95 Urine Random Creatinine 45.85 mg/dL N Creatinine Clearance 21 mL/min Low 97-137 Liver Function Panel 01/18/2017 [facility] Direct Bilirubin 0.10 mg/dL N 0.03- 0.18 Indirect Bilirubin 0.5 mg/dL N 0.3-1.0 Laboratory test finding 01/18/2017 [facility] Uric Acid 4.4 mg/dL N 4.4-7.6 CBC Auto Diff 01/18/2017 [facility] White Blood Count 6.7 10^3/uL N 3.5-10.8 Red Blood Count 3.58 10^6/uL Low 4.0-5.4 Hemoglobin 11.8 g/dL Low 14.0-18.0 Hematocrit 36 % Low 42-52 Mean Corpuscular Volume 99 fL High 80-94 Mean Corpuscular Hemoglobin 33 pg High 27-31 Mean Corpuscular HGB Conc 33 g/dL N 31-36 Red Cell Distribution Width 15 % N 10.5-15 Platelet Count 116 10^3/uL Low 150-450 Mean Platelet Volume 11 um3 High 7.4-10.4 Abs Neutrophils 4.4 10^3/uL N 1.5-7.7 Abs Lymphocytes 1.3 10^3/uL N 1.0-4.8 Abs Monocytes 0.8 10^3/uL N 0-0.8 Abs Eosinophils 0.1 10^3/uL N 0-0.6 Abs Basophils 0.1 10^3/uL N 0-0.2 Abs Nucleated RBC 0 10^3/uL N Granulocyte % 65.9 % N 38-83 Lymphocyte % 19.3 % Low 25-47 Monocyte % 11.9 % High 1-9 Eosinophil % 1.7 % N 0-6 Basophil % 1.2 % N 0-2 Nucleated Red Blood Cells % 0 N Total Protein 24HR Urine 01/18/2017 [facility] Urine Collection Time 24 N Urine Total Volume 3000 mL N Urine Random Total Protein 110 mg/dL N Urine Total Protein/24HR 3300 mg/24Hr High 0-165 Urea Nitrogen Clearance 01/18/2017 [facility] BUN Serum 77 mg/dL High 6-24 Urine Collection Time 24 N Urine Total Volume 3000 mL N Urine Random Urea Nitrogen 371 mg/dL N Urea Nitrogen Clearance 10 mL/min Low 59-99 Comp Metabolic Panel 09/30/2016 [facility] Sodium 140 mmol/L N 133-145 Potassium 3.9 mmol/L N 3.5-5.0 Chloride 108 mmol/L N 101-111 Co2 Carbon Dioxide 23 mmol/L N 22-32 Anion Gap 9 mmol/L N 2-11 Glucose 110 mg/dL High 70-100 Blood Urea Nitrogen 64 mg/dL High 6-24 Creatinine 4.28 mg/dL High 0.67-1.17 One Over Creatinine 0.20 mg/dL Low 0.67-1.17 BUN/Creatinine Ratio 15.0 N 8-20 Calcium 9.3 mg/dL N 8.6-10.3 Total Protein 6.6 g/dL N 6.4-8.9 Albumin 3.8 g/dL N 3.2-5.2 Globulin 2.8 g/dL N 2-4 Albumin/Globulin Ratio 1.4 N 1-3 Total Bilirubin 0.50 mg/dL N 0.2-1.0 Alkaline Phosphatase 38 U/L N 34-104 Alt 14 U/L N 7-52 Ast 16 U/L N 13-39 Egfr Non- 13.3 N >60 Egfr 17.1 N >60 22 Lipid Profile (Trig/Chol/HDL) 09/30/2016 [facility] Triglycerides 124 mg/dL N 23 Cholesterol 120 mg/dL N 24 HDL Cholesterol 23.3 mg/dL N 25 LDL Cholesterol 72 mg/dL N 26 Liver Function Panel 09/30/2016 [facility] Direct Bilirubin 0.10 mg/dL N 0.03- 0.18 Indirect Bilirubin 0.4 mg/dL N 0.3-1.0 Laboratory test finding 09/30/2016 [facility] Uric Acid 4.7 mg/dL N 4.4-7.6 Phosphorus 5.0 mg/dL N 2.5-5.0 Magnesium 2.5 mg/dL N 1.9-2.7 Pthi 09/30/2016 [facility] Calcium (PTH Intact) 9.4 mg/dL N 8.6-10.3 PTH Intact 3.9 pmol/L N 1.3-9.3 Laboratory test 07/20/2016 [facility] [place] Surgical Pathology SEE RESULT 27, 28 finding BELOW Laboratory test 01/24/2016 [facility] [place] Surgical Pathology SEE RESULT 29 finding BELOW Creatinine 11/09/2015 [facility] [place] Creatinine 4.69 mg/dL High 0.51-0.9 30 Clearance 5 Urine Random Creatinine 66.97 mg/dL N Creatinine Clearance 20 mL/min Low 97-137 Urea Nitrogen Clearance 11/09/2015 [facility] [place] BUN Serum 70 mg/dL High 6-24 Urine Collection Time 24 N Urine Total Volume 2050 mL N Urine Random Urea Nitrogen 478 mg/dL N Urea Nitrogen Clearance 10 mL/min Low 59-99 Total Protein 24HR Urine 11/09/2015 [facility] [place] Urine Collection Time 24 N Urine Total Volume 2050 mL N Urine Random Total Protein 65 mg/dL N Urine Total Protein/24HR 1332 mg/24Hr High 0-165 Pthi 11/09/2015 [facility] [place] Calcium (PTH Intact) 10.7 mg/dL High 8.6-10.3 PTH Intact 1.7 pmol/L N 1.3-9.3 Laboratory test finding 11/09/2015 [facility] [place] Uric Acid 4.7 mg/dL N 4.4-7.6 31 Phosphorus 5.3 mg/dL High 2.5-5.0 32 Liver Function Panel 11/09/2015 [facility] [place] Direct Bilirubin 0.10 mg/dL N 0.03- 0.18 Indirect Bilirubin 0.4 mg/dL N 0.3-1.0 Lipid Profile (Trig/Chol/HDL) 11/09/2015 [facility] [place] Triglycerides 147 mg/dL N 33 Cholesterol 111 mg/dL N 34 HDL Cholesterol 23.9 mg/dL N 35 LDL Cholesterol 58 mg/dL N 36 Comp Metabolic Panel 11/09/2015 [facility] [place] Sodium 140 mmol/L N 133-145 Potassium 4.0 mmol/L N 3.5-5.0 Chloride 103 mmol/L N 101-111 Co2 Carbon Dioxide 26 mmol/L N 22-32 Anion Gap 11 mmol/L N 2-11 Glucose 98 mg/dL N 70-100 Blood Urea Nitrogen 70 mg/dL High 6-24 Creatinine 4.67 mg/dL High 0.67-1.17 One Over Creatinine 0.20 mg/dL Low 0.67-1.17 BUN/Creatinine Ratio 15.0 N 8-20 Calcium 10.6 mg/dL High 8.6-10.3 Total Protein 6.9 g/dL N 6.4-8.9 Albumin 4.2 g/dL N 3.2-5.2 Globulin 2.7 g/dL N 2-4 Albumin/Globulin Ratio 1.6 N 1-3 Total Bilirubin 0.50 mg/dL N 0.2-1.0 Alkaline Phosphatase 35 U/L N 34-104 Alt 14 U/L N 7-52 Ast 16 U/L N 13-39 Egfr Non- 12.1 N >60 Egfr 15.5 N >60 37 Complete Blood Count 05/03/2015 [place](a) WBC 6.6 x10^3/UL 3.6 -9.6 RBC 3.65 x10^6/UL Low 3.90-5.70 38 HGB 11.9 g/dL Low 12.1-17.2 39 HCT 36 % 36-50 40 MCV 98.0 fL High 82.2-97.4 41 MCH 32.6 pg 27.6-33.3 MCHC 33.2 g/dL 33.0-35.5 RDW 14.4 % High 11.6-13.7 PLT 133 x10^3/UL Low 150-400 42 MPV 8.1 fL 7.4-10.4 Gran # 4.6 x10^3/UL 1.5-7.2 Lymph# 1.5 x10^3/UL 0.7-4.9 Dodge# 0.5 x10^3/UL 0.1-0.9 Gran % 68.9 % 42.2-75.2 Lymph % 23.3 % 20.5-51.1 Dodge% 7.8 % 1.7-9.3 Comprehensive Metabolic 05/03/2015 [place](a) Sodium 145 mEq/L 134-149 Prof Potassium 3.8 mEq/L 3.6-5.5 Chloride 104 mEq/L 94-112 Carbon Dioxide 24 mEq/L 21-32 Glucose 119 mg/dL High 70-105 43 BUN 64 mg/dL High 6-26 44 Creatinine 3.8 mg/dL High 0.6-1.4 45 BUN/Creat Ratio 16.8 CALC 8.0-36.0 Calcium 9.1 mg/dL 8.6-10.2 Total Protein 7.1 g/dL 6.4-8.3 Albumin 4.0 g/dL 3.8-5.5 Globulin 3.1 g/dL 2.0-4.8 A/G Ratio 1.3 CALC 0.6-2.3 Alk. Phosphatase 43 U/L 22-95 Alt (SGPT) 9 U/L 7-35 Ast (Sgot) 22 U/L 5-34 Total Bilirubin 0.4 mg/dL 0.2-1.3 GFR Non- 16 ml/min/1.73m^ Low >=60 GFR 20 ml/min/1.73m^ Low >=60 Lipid Profile 05/03/2015 [facility](fma) Cholesterol 148 mg/dL 120- 200 Triglycerides 143 mg/dL 30-200 HDL Cholesterol 29 mg/dL Low 30-70 46 LDL (Calculated) 90 CALC 0-129 VLDL Cholesterol 29 mg/dL 0-50 HDL Risk Factor 5.1 CALC High 0.0-4.4 Laboratory test 05/03/2015 [place](fma) TSH 3.42 mIU/L 0.50-6.00 47 finding Laboratory test 03/20/2015 [facility] ([facility] [place] Lab see scanned finding Test 1 [facility] Severe Sepsis and Septic Shock Management Bundle Measure requires all lactic acids initially measuring >2.0 mmol/L be repeated. 2 Because ethnic data is not always readily available, this report includes an eGFR for both -Americans and non- Americans. The National Kidney Disease Education Program (NKDEP) does not endorse the use of the MDRD equation for patients that are not between the ages of 18 and 70, are , have extremes of body size, muscle mass, or nutritional status, or are non- or non-. According to the National Kidney Foundation, irrespective of diagnosis, the stage of the disease is based on the level of kidney function: Stage Description GFR(mL/min/1.73 m(2)) 1 Kidney damage with normal or decreased GFR 90 2 Kidney damage with mild decrease in GFR 60-89 3 Moderate decrease in GFR 30-59 4 Severe decrease in GFR 15-29 5 Kidney failure <15 (or dialysis) 3 Result TnIDx:0.07 Called to [id number] at: 16:13:10 by:[email or web address] Read back by: [id number] Troponin-I testing on Plasma Separator Tubes (PST) has a known false positive rate of 0.20-0.40%. All positive troponins reflex immediate secondary confirmatory testing. 4 SEE RESULT BELOW Name: DAVID SHEN : [address]: Arthur Jacobo MD Acct: [id number] Unit: [id number] AGE: 87 Location: ED Re07/25/18 SEX: M Status: DEP ER SPEC: [id number] ORLY: 07/25/18 [facility] DR: Arthur Jacobo MD REQ: [id number] RECD: 07/25/18 STATUS: EDMUNDO DENTON DR: Selene Conn MD _ SOURCE: BLOOD,VENO SPDESC: ORDERED: Blood Cult Procedure Result Reported Site Aerobic Culture Bottle Final 07/30/18- 1549 ML No Growth Day 5 Anaerobic Culture Bottle Final 07/30/18- 1547 ML No Growth Day 5 * ML - Main Lab . END OF REPORT DEPARTMENT OF PATHOLOGY, [address] [place] [address] Benji Marques M.D. Director [facility] # [id number] 5 RESULTS VERIFIED BY REPEAT ANALYSIS 6 RESULTS VERIFIED BY REPEAT ANALYSIS 7 RESULTS VERIFIED BY REPEAT ANALYSIS 8 Because ethnic data is not always readily available, this report includes an eGFR for both -Americans and non- Americans. The National Kidney Disease Education Program (NKDEP) does not endorse the use of the MDRD equation for patients that are not between the ages of 18 and 70, are , have extremes of body size, muscle mass, or nutritional status, or are non- or non-. According to the National Kidney Foundation, irrespective of diagnosis, the stage of the disease is based on the level of kidney function: Stage Description GFR(mL/min/1.73 m(2)) 1 Kidney damage with normal or decreased GFR 90 2 Kidney damage with mild decrease in GFR 60-89 3 Moderate decrease in GFR 30-59 4 Severe decrease in GFR 15-29 5 Kidney failure <15 (or dialysis) 9 Result TnIDx:0.06 Called to MILLA at: 02:55:27 by:[id number] Read back by: MILLA 10 >100 to <200 pg/mL: likely compensated congestive heart failure (CHF) 200 to 400 pg/mL: likely moderate CHF >400 pg/mL: likely moderate to severe CHF 11 [facility] Severe Sepsis and Septic Shock Management Bundle Measure requires all lactic acids initially measuring >2.0 mmol/L be repeated. 12 Because ethnic data is not always readily available, this report includes an eGFR for both -Americans and non- Americans. The National Kidney Disease Education Program (NKDEP) does not endorse the use of the MDRD equation for patients that are not between the ages of 18 and 70, are , have extremes of body size, muscle mass, or nutritional status, or are non- or non-. According to the National Kidney Foundation, irrespective of diagnosis, the stage of the disease is based on the level of kidney function: Stage Description GFR(mL/min/1.73 m(2)) 1 Kidney damage with normal or decreased GFR 90 2 Kidney damage with mild decrease in GFR 60-89 3 Moderate decrease in GFR 30-59 4 Severe decrease in GFR 15-29 5 Kidney failure <15 (or dialysis) 13 Desirable <150 Borderline high 150-199 High 200-499 Very High >500 14 Desirable <200 Borderline high 200-239 High >239 15 Low <40 Desirable: 40-60 High: >60 16 Desirable: <100 mg/dL Near Optimal: 100-129 mg/dL Borderline High: 130-159 mg/dL High: 160-189 mg/dL Very High: >189 mg/dL 17 Because ethnic data is not always readily available, this report includes an eGFR for both -Americans and non- Americans. The National Kidney Disease Education Program (NKDEP) does not endorse the use of the MDRD equation for patients that are not between the ages of 18 and 70, are , have extremes of body size, muscle mass, or nutritional status, or are non- or non-. According to the National Kidney Foundation, irrespective of diagnosis, the stage of the disease is based on the level of kidney function: Stage Description GFR(mL/min/1.73 m(2)) 1 Kidney damage with normal or decreased GFR 90 2 Kidney damage with mild decrease in GFR 60-89 3 Moderate decrease in GFR 30-59 4 Severe decrease in GFR 15-29 5 Kidney failure <15 (or dialysis) 18 Desirable <150 Borderline high 150-199 High 200-499 Very High >500 19 Desirable <200 Borderline high 200-239 High >239 20 Low <40 Desirable: 40-60 High: >60 21 Desirable: <100 mg/dL Near Optimal: 100-129 mg/dL Borderline High: 130-159 mg/dL High: 160-189 mg/dL Very High: >189 mg/dL 22 Because ethnic data is not always readily available, this report includes an eGFR for both -Americans and non- Americans. The National Kidney Disease Education Program (NKDEP) does not endorse the use of the MDRD equation for patients that are not between the ages of 18 and 70, are , have extremes of body size, muscle mass, or nutritional status, or are non- or non-. According to the National Kidney Foundation, irrespective of diagnosis, the stage of the disease is based on the level of kidney function: Stage Description GFR(mL/min/1.73 m(2)) 1 Kidney damage with normal or decreased GFR 90 2 Kidney damage with mild decrease in GFR 60-89 3 Moderate decrease in GFR 30-59 4 Severe decrease in GFR 15-29 5 Kidney failure <15 (or dialysis) 23 Desirable <150 Borderline high 150-199 High 200-499 Very High >500 24 Desirable <200 Borderline high 200-239 High >239 25 Low <40 Desirable: 40-60 High: >60 26 Desirable: <100 mg/dL Near Optimal: 100-129 mg/dL Borderline High: 130-159 mg/dL High: 160-189 mg/dL Very High: >189 mg/dL 27 [id number] 28 SEE RESULT BELOW Name: DAVID SHEN : [address]: Asaf Finn MD Acct: [id number] Unit: [id number] AGE: 85 Location: [facility] Re07/20/16 SEX: M [place] [facility] [place]C: [id number] ORLY: 07/20/16[address] SUBM DR: Asaf Finn MD REQ: [id number] RECD: 07/20/16 STATUS: SHARMIN DENTON DR: Selene Saenz MD _ ORDERED: LEVEL IV COMMENTS: [id number] FINAL DIAGNOSIS Skin, left back, wide excision: -- Skin and subcutaneous tissue with prior biopsy site related changes. -- No residual melanocytic neoplasia identified. PRE-OPERATIVE DIAGNOSIS Melanoma left back; suture tovar 12 o'clock lateral apex margin GROSS DESCRIPTION The specimen is received in formalin labeled, Wide Excision Melanoma Left Back, Suture Tovar 12:00 Lateral Pattison Margin, and consists of a 7.1 x 2.7 cm pickens-white wrinkled skin ellipse excised to a depth of 1.1 cm with a central 0.6 x 0.5 cm pickens-pink area. There is a suture attached to one long axis, which designates the 12:00 lateral apex margin. The specimen is inked as follows: 9:00 half black, 3:00 half blue and 12:00 tip green, serially sectioned from 12:00 to 6:00 and entirely submitted in cassettes A through J to include ellipse ends in cassette A. Signed (signature on file) Benji Marques MD 1536 END OF REPORT * ML=Testing performed at Main Lab DEPARTMENT OF PATHOLOGY, [address] [place] [address] Benji Marques M.D. Director [facility] # [id number] 29 SEE RESULT BELOW Name: DAVID SHEN : [address]: Asaf Finn MD Acct: [id number] Unit: [id number] AGE: 85 Location: [place] Re01/24/16 SEX: M Status: REG SDC SPEC: [id number] ORLY: 01/24/16-1227 [facility] DR: Asaf Finn MD REQ: [id number] RECD: 01/24/16-1238 STATUS: SHARMIN DENTON DR: Selene Montgomery MD _ ORDERED: CONSULT W/ FS, FS ADDITIONAL, LEVEL IV/2 FINAL DIAGNOSIS 1. Skin, left superior lateral brow, excision: -- Scar and residual basal cell carcinoma, superficial and nodular type. -- Deep, tip, and lateral margins are clear. 2. Skin, left superior lateral brow, 10 and 2:00 margins, excision: -- Benign skin with mild actinic change. -- No evidence of neoplasia. COMMENT: The previous lesion at this site ([id number]) has been completely excised. PATHOLOGY SURGICAL CONSULT Frozen section (FS)/Touch Prep (TP)/Gross Consult (GC) FSDX: Excision Basal cell carcinoma let superior lateral brow: a. Basal cell carcinoma, nodular. (DS) b. Margins clear. (DS) Dr. Finn notified at 1258 on 01/24/16. PRE-OPERATIVE DIAGNOSIS Basal cell carcinoma left superior lateral brow, 1) suture tovar 12:00 superior margin; 2) Suture tovar 12 o'clock true margin left brow CONTINUED ON NEXT PAGE * ML=Testing performed at Main Lab DEPARTMENT OF PATHOLOGY, [address] [place] [address] Benji Marques M.D. Director [facility] # [id number] RUN DATE: 01/25/16 [facility] LAB LIVE PAGE 2 Patient: DAVID SHEN [id number] (Continued) GROSS DESCRIPTION (Continued) GROSS DESCRIPTION 1. The specimen is received fresh labeled, Excision Basal Cell Carcinoma Left Superior Lateral Brow Suture Tovar 12:00 Superior Margin, and consists of a 1.5 x 1.1 cm pickens-pink ovoid skin fragment excised to a depth of 0.6 cm. There is an attached suture, which designates the 12:00 superior margin. The specimen is inked as follows: 9: 00 half black, 3:00 half blue and 12:00 end green, serially sectioned from 12:00 to 6:00 and entirely submitted for frozen section microscopy. The frozen section residue is submitted in cassettes FSA and FSB to include ends in cassette FSA. 2. The specimen is received in formalin labeled, Wide Excision 10:00 and 2: 00 Margin, Suture Tovar 12:00 True Margin, and consists of a 2.0 x 0.9 cm pickens-pink triangular skin fragment excised to a depth of 0.5 cm. There is a suture attached to one long axis, which designates the 12:00 true margin. The specimen is inked as follows: 9:00 half black and 3:00 half blue, serially sectioned from 12:00 to 6:00 and entirely submitted in cassettes A and B to include true 12:00 margin in cassette A. Signed (signature on file) Ayah Booker MD 06/30 1145 END OF REPORT * ML=Testing performed at Main Lab DEPARTMENT OF PATHOLOGY, [address] [place] [address] Benji Marques M.D. Director [facility] # [id number] 30 PT IS FASTING 31 PT IS FASTING 32 PT IS FASTING 33 Desirable <150 Borderline high 150-199 High 200-499 Very High >500 34 Desirable <200 Borderline high 200-239 High >239 35 Low <40 Desirable: 40-60 High: >60 36 Desirable: <100 mg/dL Near Optimal: 100-129 mg/dL Borderline High: 130-159 mg/dL High: 160-189 mg/dL Very High: >189 mg/dL 37 Because ethnic data is not always readily available, this report includes an eGFR for both -Americans and non- Americans. The National Kidney Disease Education Program (NKDEP) does not endorse the use of the MDRD equation for patients that are not between the ages of 18 and 70, are , have extremes of body size, muscle mass, or nutritional status, or are non- or non-. According to the National Kidney Foundation, irrespective of diagnosis, the stage of the disease is based on the level of kidney function: Stage Description GFR(mL/min/1.73 m(2)) 1 Kidney damage with normal or decreased GFR 90 2 Kidney damage with mild decrease in GFR 60-89 3 Moderate decrease in GFR 30-59 4 Severe decrease in GFR 15-29 5 Kidney failure <15 (or dialysis) 38 RESULTS VERIFIED BY REPEAT ANALYSIS 39 RESULTS VERIFIED BY REPEAT ANALYSIS 40 RESULTS VERIFIED BY REPEAT ANALYSIS 41 RESULTS VERIFIED BY REPEAT ANALYSIS 42 RESULTS VERIFIED BY REPEAT ANALYSIS 43 RESULTS VERIFIED BY REPEAT ANALYSIS 44 RESULTS VERIFIED BY REPEAT ANALYSIS 45 RESULTS VERIFIED BY REPEAT ANALYSIS 46 RESULTS VERIFIED BY REPEAT ANALYSIS 47 FASTING Procedures Date Code Description Status 03/31/2015 97270 Vision Test- screening test of visual acuity, Completed quantitative, bila 07/16/2009 [id number] Colonoscopy Completed Encounters Type Date Location Provider Dx Diagnosis Office Visit 10/16/2018 [facility] Selene Conn, 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 preprocedural examination G56.02 Carpal tunnel syndrome, left upper limb I25.10 Athscl heart disease of [place] coronary artery w/o ang pctrs I10 Essential (primary) hypertension I48.0 Paroxysmal atrial fibrillation N18.6 End stage renal disease R55 Syncope and collapse Office Visit 07/17/2018 2:45p [facility] Nohemy Rodriguez G56.02 Carpal tunnel Office RADHA Davis syndrome, left upper limb Office Visit 03/05/2018 3:15p [facility] Isabella Pearson R07.89 Other chest pain Office RADHA Mustafa Office Visit 11/13/2017 3:20p [facility] Selene Conn, I48.0 Paroxysmal atrial Office M.D. fibrillation N18.6 End stage renal disease I10 Essential (primary) hypertension I25.10 Athscl heart disease of [place] coronary artery w/o ang pctrs R06.02 Shortness of breath R04.0 Epistaxis Office Visit 08/20/2017 3:20p Main Office Selene Conn, I48.0 Paroxysmal atrial M.D. fibrillation N18.6 End stage renal disease I10 Essential (primary) hypertension J06.9 Acute upper respiratory infection, unspecified Office Visit 04/25/2017 9:00a [facility] Selene Conn, I10 Essential (primary) M.D. hypertension I25.10 Athscl heart disease of [place] coronary artery w/o ang pctrs N18.6 End stage renal disease Z85.820 Personal history of malignant melanoma of skin Z23 Encounter for immunization Office Visit 10/20/2016 10:00a [facility] Selene Conn, I10 Essential (primary) M.D. 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 (primary) hypertension N18.6 End stage renal disease Z85.820 Personal history of malignant melanoma of skin K59.09 Other constipation Office Visit 06/30/2015 9:00a [facility] Selene Fabien, I10 Essential (primary) M.D. hypertension N18.6 End stage renal disease Office Visit 03/31/2015 9:20a [facility] Office Selene Conn, V70.0 Examination M.D. 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 at [facility] [id number]/20/2018 - Selene Conn M.D.E03.9 Hypothyroidism, unspecifiedComments: on 75mcg, repeat labs in a few iuwvxO07.6 End stage renal diseaseComments: follows GsknwkH11.0 Paroxysmal atrial [id number] Essential (primary) hypertensionComments:The patient will continue to monitor blood pressure and let me know the blood pressure results if there are readings persistently above 140/90. Goal blood pressure is less than 130/80. Recommend low salt/cardiac diet such as the Mediterranean diet and routine exercise at least 30 minutes a day.I25.10 Atherosclerotic heart disease of [place] coronary artery withComments: continue present medication,will call if there is any increase in the frequency or severity of anginaFollow up:3 moR53.83 Other fatigueComments:possible sleep xprzqC98.83 SnoringComments:refer for sleep study for possible sleep uqcstZ54.02 Shortness of breathComments:Patient was instructed to call or return if symptoms of shortness of breath fhujpaR40.0 NauseaComments:discussed tums as needed, if worsening refer GI ; decrease miralax useF41.9 Anxiety disorder, gkscwsubdziY45.10 Dysphagia, unspecifiedComments:defers evaluation, will monitor ewwaittrM88.671 Pain in right footComments:discussed neuropathy, follow with podiatry, defers medication at this timeAllNew Medication: Liothyronine Sodium 25 mcg - 1 tabs by mouth every morning with 50mcgLiothyronine Sodium 50 mcg - 1 by mouth every day with 25mcgComments: Medication Management Patient Understands medications he's taking? Yes No Are there Barriersto Adherence? Yes No Has the patient been asked about herbal supplements and therapies, and OTC meds? Yes No
[2018-11-29 19:04] LABS: ABS Eosinophils 0.1 10^3/ul (0-0.6); ABS Lymphocytes 0.6 10^3/ul (1.0-4.8); ABS Monocytes 0.9 10^3/ul (0-0.8); ABS Neutrophils 4.5 10^3/ul (1.5-7.7); Eosinophil % 1.6 %; Hematocrit 21 % (42-52); Lymphocyte % 9.7 %; Mean Corpuscular HGB Conc 34 g/dL (31-36); Mean Corpuscular Hemoglobin 34 pg (27-31); Mean Corpuscular Volume 102 fL (80-94); Mean Platelet Volume 8.1 fL (7.4-10.4); Platelet Count 124 10^3/uL (150-450); Red Blood Count 2.02 10^6 /uL (4.18-5.48); Red Cell Distribution Width 16 % (10.5-15); White Blood Count 6.1 10^3/uL (3.5-10.8)
[2018-11-29 19:19] LABS: ALT 39 U/L (7-52); AST 33 U/L (13-39); Albumin 3.4 g/dL (3.2-5.2); Albumin/Globulin Ratio 1.1 (1-3); Alkaline Phosphatase 46 U/L (34-104); Anion Gap 15 mmol/L (2-11); BUN/Creatinine Ratio 7.9 (8-20); Blood Urea Nitrogen 75 mg/dL (6-24); CO2 Carbon Dioxide 26 mmol/L (22-32); Calcium 9.3 mg/dL (8.6-10.3); Chloride 88 mmol/L (101-111); EGFR African American 6.3 (>60); EGFR Non-African American 5.2 (>60); Glucose 110 mg/dL (70-100); Potassium 3.6 mmol/L (3.5-5.0); Sodium 129 mmol/L (135-145); Total Protein 6.4 g/dL (6.4-8.9)
[2018-11-29 19:24] LABS: Troponin I 0.14 ng/mL (<0.04)
--- NOTE | 2018-11-29 19:38 | ED ---
Dizziness - HPI Summary HPI Summary: The patient is an 88 y/o M presenting to [facility] accompanied by with a chief complaint of increased BLE weakness and lightheadedness starting yesterday. His reports that the patient and she were at the doctor's yesterday getting a CT on his abd, and when they got home, his legs became shaky and unsteady with sudden onset lightheadedness with near syncopal episode where his legs almost collapsed. The lightheadedness resolved with rest. Last night, he had difficulty sleeping due to dx of perineal dialysis, so he got up to watch TV and then went back to sleep. He states he has had no change in diet and ate a good breakfast this morning, and he also took a nap today. However, when he woke up from his nap, he had another episode of lightheadedness with weakness in his legs. He additionally c/o hand and leg tremors, unsteady gait, SOB, nausea, and pain in bilateral shoulders. He denies CP, changes in speech or facial symmetry, and new edema. The symptoms are aggravated by moving from sitting to erect position and alleviated by rest. - History Of Current Complaint Chief Complaint: EDWeakness Stated Complaint: LIGHTHEADED/WEAKNESS PER Time Seen by Provider: 11/29/18 19:25 Hx Obtained From: Patient Onset/Duration: Suddenly Timing: Minutes Severity Initially: Moderate Severity Currently: Mild Character: Lightheaded, Weak Aggravating Factor(s): Supine To Erect Alleviating Factor(s): Rest Associated Signs And Symptoms: Positive: Nausea, SOB, Unsteady Gait, Other: - POSITIVE: hand and leg tremors, pain in bilateral shoulders; NEGATIVE: changes in facial symmetry, edema. Negative: Chest Pain, Change In Diet, Slurred Speech - Allergies/Home Medications Allergies/Adverse Reactions: Allergies Allergy/AdvReac Type Severity Reaction Status Date / Time tape Allergy Unknown Uncoded 11/29/18 18:05 Reaction Details Home Medications: Home Medications Aspirin EC TAB* [Ecotrin EC Low Dose 81 MG*] 81 mg PO DAILY 11/29/18 [History Confirmed 11/29/18] Calcium Polycarbophil TAB* [Fibercon TAB*] 625 mg PO BID WITH MEALS 11/29/18 [ History Confirmed 11/29/18] Ciprofloxacin HCl [Cipro] 500 mg PO BID 11/29/18 [History Confirmed 11/29/18] Ferric Citrate TAB(NF) 210 mg PO AC 11/29/18 [History Confirmed 11/29/18] Liothyronine TAB* [Cytomel TAB*] 75 mcg PO DAILY 11/29/18 [History Confirmed ] Multivitamins/Minerals TAB* [Theragran/minerals TAB*] 1 tab PO DAILY 11/29/18 [ History Confirmed 11/29/18] [place]-3 Fatty Acids (Nf) [Fish Oil (NF)] 1,000 mg PO BID 11/29/18 [History Confirmed 11/29/18] Polyethylene Glycol 3350* [Miralax*] 17 gm PO DAILY 11/29/18 [History Confirmed 11/29/18] Simvastatin TAB(NF) [Zocor(NF)] 20 mg PO DAILY 11/29/18 [History Confirmed 11/29] Vitamin E Mixed [Vitamin E] 1,000 unit PO DAILY 11/29/18 [History Confirmed ] Warfarin TAB(*) [Coumadin TAB(*)] 2.5 mg PO SUTUWETHSA 11/29/18 [History Confirmed 11/29/18] Warfarin TAB(*) [Coumadin TAB(*)] 5 mg PO MOFR 11/29/18 [History Confirmed 11/29] PMH/Surg Hx/FS Hx/Imm Hx Endocrine/Hematology History: Denies: Hx Diabetes Cardiovascular History: Reports: Hx Hypercholesterolemia, Hx Hypertension, Other Cardiovascular Problems/Disorders - on coumidin, on dialysis for kidney failure Respiratory History: Denies: Hx Asthma, Hx Chronic Obstructive Pulmonary Disease (COPD) GI History: Reports: Other GI Disorders - CONSTIPATION- METAMUCIL, colace History: Reports: Hx Kidney Stones - "DEBRIS" AT 22 YRS OF AGE, Hx Renal Disease - STAGE 7, Other Problems/Disorders Musculoskeletal History: Reports: Hx Arthritis - GENERALIZED,, Other Musculoskeletal History - RIGHT LOWER BACK PAIN FOR PAST MONTH Sensory History: Reports: Hx Cataracts - HX, Hx Contacts or Glasses, Hx Hearing Aid Opthamlomology History: Reports: Hx Cataracts - HX, Hx Contacts or Glasses Neurological History: Reports: Hx Seizures - 1989 ONE TIME ONLY, Other Neuro Impairments/Disorders - 1989 TIA - Cancer History Cancer Type, Location and Year: basal cell carcinoma, melanoma - Surgical History Surgery Procedure, Year, and Place: TONSILLECTOMY CHILD. 1954 TUR - [facility]. BILATERAL INGUINAL HERNIA SURG X 3 1949'S AND 1965- [facility]. CARPAL TUNNEL RIGHT. 11/27 left ARM MELANOMA- DR BRYANT [facility]. OTHER MELANOMA SKIN MARK + BASAL CELL. cataract surgery with lens implants - [facility] - 2008. RETROPERITONEAL CATHETER FOR DIALYSIS Hx Anesthesia Reactions: No Infectious Disease History: No Infectious Disease History: Denies: Hx Clostridium Difficile, Hx Hepatitis, Hx Human Immunodeficiency Virus (HIV), Hx of Known/Suspected MRSA, Hx Shingles, Hx Tuberculosis, Traveled Outside the in Last 30 Days - Family History Known Family History: Negative: Blood Disorder - Social History Alcohol Use: Rare Alcohol Amount: 1-2 DRINKS/WEEK Substance Use Type: Reports: None Hx Tobacco Use: No Smoking Status (MU): Never Smoked Tobacco Do You Chew or Dip Tobacco: No Have You Smoked in the Last Year: No Review of Systems Negative: Chest Pain Positive: Shortness Of Breath Positive: Nausea, Other - NEGATIVE: change in diet Positive: Other - bilateral shoulder pain. Negative: Edema Neurological: Other - POSITIVE: lightheadedness, unsteady gait, hand and leg tremors, difficulty sleeping; NEGATIVE: changes in facial symmetry Positive: Weakness. Negative: Slurred Speech All Other Systems Reviewed And Are Negative: Yes Physical Exam - Summary Physical Exam Summary: Constitutional: Well-developed, Well-nourished, Alert. (-) Distressed Skin: Warm, Dry HENT: Normocephalic; Atraumatic Eyes: Conjunctiva normal Neck: Musculoskeletal ROM normal neck. (-) JVD, (-) Stridor, (-) Tracheal deviation Cardio: Rhythm regular, rate normal, Heart sounds normal; Intact distal pulses; The pedal pulses are 2+ and symmetric. Radial pulses are 2+ and symmetric. (-) Murmur Pulmonary/Chest wall: Effort normal. (-) Respiratory distress, (-) Wheezes, (-) Rales Abd: Soft, (-) tenderness, (-) Distension, (-) Guarding, (-) Rebound Rectal Exam: Rectal exam reveals dark stool Musculoskeletal: (-) Edema Lymph: (-) Cervical adenopathy Neuro: Alert, Oriented x3 Psych: Mood and affect Normal Triage Information Reviewed: Yes Vital Signs On Initial Exam: Initial Vitals Temp Pulse Resp BP Pulse Ox 98.3 F 69 17 177/74 100 11/29/18 18:05 11/29/18 18:05 11/29/18 18:05 11/29/18 18:05 11/29/18 18:05 Vital Signs Reviewed: Yes Diagnostics - Vital Signs Vital Signs Temp Pulse Resp BP Pulse Ox 11/29/18 18:47 69 22 171/82 98 11/29/18 18:31 70 20 192/87 98 11/29/18 18:28 71 23 98 11/29/18 18:05 98.3 F 69 17 177/74 100 - Laboratory Lab Results: Lab Results 11/29/18 11/29/18 11/29/18 Range/Units 18:47 18:47 18:47 WBC 6.1 (3.5-10.8) 10^3/uL RBC 2.02 L (4.18-5.48) 10^6 /uL Hgb 7.0 L (14.0-18.0) g/dL Hct 21 L (42-52) % MCV 102 H (80-94) fL MCH 34 H (27-31) pg MCHC 34 (31-36) g/dL RDW 16 H (10.5-15) % Plt Count 124 L (150-450) 10^3/uL MPV 8.1 (7.4-10.4) fL Neut % (Auto) 73.5 % Lymph % (Auto) 9.7 % [place] % (Auto) 14.8 % Eos % (Auto) 1.6 % Baso % (Auto) 0.4 % Absolute Neuts (auto) 4.5 (1.5-7.7) 10^3/ul Absolute Lymphs (auto) 0.6 L (1.0-4.8) 10^3/ul Absolute Monos (auto) 0.9 H (0-0.8) 10^3/ul Absolute Eos (auto) 0.1 (0-0.6) 10^3/ul Absolute Basos (auto) 0.0 (0-0.2) 10^3/ul Absolute Nucleated RBC 0.0 10^3/ul Nucleated RBC % 0.0 Sodium 129 L (135-145) mmol/L Potassium 3.6 (3.5-5.0) mmol/L Chloride 88 L (101-111) mmol/L Carbon Dioxide 26 (22-32) mmol/L Anion Gap 15 H (2-11) mmol/L BUN 75 H (6-24) mg/dL Creatinine 9.55 H (0.67-1.17) mg/dL Est GFR ( Amer) 6.3 (>60) Est GFR (Non-Af Amer) 5.2 (>60) BUN/Creatinine Ratio 7.9 L (8-20) Glucose 110 H (70-100) mg/dL Lactic Acid 1.7 (0.5-2.0) mmol/L Calcium 9.3 (8.6-10.3) mg/dL Total Bilirubin 0.30 (0.2-1.0) mg/dL AST 33 (13-39) U/L ALT 39 (7-52) U/L Alkaline Phosphatase 46 (34-104) U/L Troponin I 0.14 H* (<0.04) ng/mL Total Protein 6.4 (6.4-8.9) g/dL Albumin 3.4 (3.2-5.2) g/dL Globulin 3.0 (2-4) g/dL Albumin/Globulin Ratio 1.1 (1-3) Result Diagrams: 11/29/18 18:47 11/29/18 18:47 Lab Statement: Any lab studies that have been ordered have been reviewed, and results considered in the medical decision making process. - Radiology CXR Radiology Interpretation Completed By: Radiologist Summary of Radiographic Findings: Vascular congestion improved from 07/25/18. ED physician has reviewed this report. - EKG 18:30 Cardiac Rate: NL - 69 BPM EKG Rhythm: Sinus Rhythm Summary of EKG Findings: Nml axis. Nml SD. Prolonged QRS. Borderline prolonged QTc. ST elevations in V1, V2, and V3. ST depressions in V6. Overall nonspecific. Re-Evaluation - Re-Evaluation First Eval Re-Evaluation Time: 21:00 Change: Unchanged Comment: I spoke with the patient concerning results and admission to the hospital. Dizzy Course/Dx - Course Assessment/Plan: The patient is an 88 y/o M presenting to [facility] accompanied by with a chief complaint of two episodes of increased BLE weakness, unsteady gait, and lightheadedness starting yesterday. Upon physical exam, the patient appears to be non-edematous, rectal exam reveals dark stool. In the ED course, the patient was given Protonix and Phytonadione. Blood work reveals RBC of 2.02 , Hgb of 7, hct of 21, MCV of 21, MCV of 102, MCH of 34, RDW of 16, plt count of 124, abs lymphs of 0.6, abs monos of 0.9, INR of 2.93, sodium of 129, chloride of 88, anion gap of 15, BUN of 75, creatinine of 9.55, BUN/creatinine of 7.9, glucose of 110, and troponin of 0.14. Stool sample collected. EKG reveals prolonged QRS, borderline prolonged QTc, ST elevations in V1, V2, and V3 , ST depressions in V6, and overall nonspecific. CXR reveals vascular congestion improved from 07/25/18. I consulted with Dr. Wong, hospitalist concerning the symptoms, history, and findings for patient; she accepts the patient for admission at 1930. I additionally consulted Dr. Snowden, gastroenterology, at 1938 to discuss patients current condition; stool sample will be collected. The patient will be admitted with dx of GI bleed, anemia, Warfarin-induced coagulopathy, and elevated troponin. He and his agree with this plan and understand the need for admission at this time. - Diagnoses Provider Diagnoses: GI bleed, Anemia, Warfarin-induced coagulopathy, Elevated troponin - Provider Notifications Discussed Care Of Patient With: Opal Wong - hospitalist Time Discussed With Above Provider: 19:30 Instructed by Provider To: Other - I consulted with Dr. Wong concerning the findings thus far. She accepts the patient for admission. Discharge - Sign-Out/Discharge Documenting (check all that apply): Patient Departure - Patient will be admitted to [facility] for further care by Dr. Wong. Patient Received Moderate/Deep Sedation with Procedure: No - Discharge Plan Condition: Stable Disposition: ADMITTED TO [facility] Referrals: Selene Conn MD [Primary Care Provider] - - Billing Disposition and Condition Condition: STABLE Disposition: Admitted to [facility] - Attestation Statements Document Initiated by Scribe: Yes Documenting Scribe: Arelis Booker Provider For Whom Scribe is Documenting (Include Credential): Dr. Monika Samuel MD Scribe Attestation: I, Arelis Booker, scribed for Dr. Monika Samuel MD on 11/29/18 at 2214. Scribe Documentation Reviewed: Yes Provider Attestation: The documentation as recorded by the chrisibe, Arelis Booker accurately reflects the service I personally performed and the decisions made by me, Dr. Monika Samuel MD Status of Scribe Document: Viewed
[2018-11-29 20:24] LABS: INR 2.93 (0.82-1.09)
[2018-11-29] MEDS ORDERED: Phytonadione IV (Adult)* 10 MG in NS 0.9% 50 ML* 50 ML IV ONE (20:34)
[2018-11-29] MEDS ORDERED: Pantoprazole IV* 40 MG IV ONE (20:35)
[2018-11-29] MEDS ORDERED: Pantoprazole* 80 mg IN NS 80 MG/250 ML BAG IVPB ONE (20:35)
[2018-11-29] MEDS ORDERED: Al Hydrox/Mg Hydrox/Simet LIQ* 30 ML UDC PO PRN (21:30)
[2018-11-29] MEDS ORDERED: Acetaminophen TAB* 325 MG PO PRN (21:30)
[2018-11-29] MEDS ORDERED: Magnesium Hydroxide LIQ* 30 ML UDC PO PRN (21:30)
[2018-11-29 22:16] LABS: Troponin I 0.13 ng/mL (<0.04)
[2018-11-30] MEDS ORDERED: diPHENhydraMINE LIQ* 12.5 MG/5 ML UDC PO ONE (00:51)
--- NOTE | 2018-11-30 01:12 | HP ---
CC: Dr. Selene Conn; Dr. Saenz, Dr. Adair; Dr. Snowden HISTORY AND PHYSICAL: DATE OF ADMISSION: 11/29/18 PRIMARY CARE PROVIDER: Dr. Selene Conn. CHIEF COMPLAINT: Generalized weakness and lightheadedness. HISTORY OF PRESENT ILLNESS: David Shen is an 88-year-old male with history of end-stage renal disease, on peritoneal dialysis for the past year, who stated that 2 days ago he noted that his peritoneal fluid was cloudy and he was started on ciprofloxacin by Dr. Saenz. Apparently, cultures were also obtained at that point of the fluid, but the cultures are being performed at an outside microbiology lab. The patient stated that for the past 24 hours he had been intermittently dry heaving and not eating well. He noted dyspnea on exertion and lack of energy for the past at least a week. He stated his stool had been melenic ever since he had been on his iron containing phosphate binder. He presented to the emergency department today. His troponin is mildly elevated which is chronic for this patient, but his hemoglobin is 7 which is new. His stool is heme positive and melenic. He is going to be admitted with a diagnosis of GI bleed. His INR is 2.9 which is in therapeutic range for his atrial fibrillation. PAST MEDICAL HISTORY: 1. History of paroxysmal atrial fibrillation, status post event monitor placed in August of [address] Adair due to episodes of near syncope. 2. End-stage renal disease, on peritoneal dialysis at home nightly. 3. History of hypertension. 4. "Heart murmur." As per echocardiogram report, the patient has history of moderate mitral regurgitation. 5. History of paroxysmal atrial fibrillation, on Coumadin. 6. Gout. 7. History of CVA/TIA in . 8. History of skin melanoma. 9. Carpal tunnel release in July 2018. 10. Status post peritoneal dialysis catheter placement in the past. 11. History of hernia repair. 12. 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 ALLERGIES: Allergy to PLASTIC TAPE. CURRENT MEDICATIONS: Include: 1. Ciprofloxacin 500 mg b.i.d. 2. Vitamin E 1000 units daily. 3. Coumadin 5 mg Mondays and Fridays and 2.5 mg the remaining days of the week. 4. Multivitamin 1 tablet daily. 5. Ferric citrate 210 mg p.o. a.c. 6. FiberCon 625 mg b.i.d. with meals. 7. PreserVision AREDS 2 capsules daily. 8. [place]-3 fatty acids 1000 mg b.i.d. 9. Aspirin 81 mg daily. 10. Simvastatin 20 mg daily. 11. Allopurinol 600 mg b.i.d. 12. Cytomel 75 mcg daily. 13. Amiodarone 200 mg daily. 14. Polyethylene glycol 17 g daily p.r.n. FAMILY HISTORY: Positive for mother with hypertension and father with hypertension and cancer. SOCIAL HISTORY: The patient lives with his who is his surrogate. He is fully independent with activities of daily living. The patient denies any tobacco, alcohol, or drug use. REVIEW OF SYSTEMS: Positive for dyspnea on exertion, feeling tired all the time. Denies any chest pain. Positive for dry heaving for the past couple of days, occasional. Denies abdominal pain. Positive for diagnosis of peritonitis with cloudy fluid from his peritoneal dialysis catheter. Otherwise , the patient has no abdominal pain. The patient also has been complaining of occasional dry cough. All the remaining 12 systems were reviewed with the patient and were otherwise negative. PHYSICAL EXAMINATION GENERAL: The patient is a pleasant 88-year-old male who is in no acute distress , alert, awake, and oriented x3. VITAL SIGNS: Blood pressure of 178/84, heart rate of 68 and regular, respiratory rate 22, oxygen saturation 97% on room air, temperature of 98.3. HEENT: Head: Atraumatic, normocephalic. Eyes: Pupils are equal and reactive to light and accommodation. Oropharynx clear. Mucosa moist. NECK: Supple. No JVD. No bruits bilaterally. RESPIRATORY: Faint crackles at bilateral bases, otherwise clear. CARDIOVASCULAR: Regular rate and rhythm. No murmur. ABDOMEN: Soft, nontender. Bowel sounds present in all 4 quadrants. Peritoneal dialysis catheter in place with no changes around his insertion of the catheter. EXTREMITIES: There is no edema. Pulses are +2 bilaterally. There is no clubbing or cyanosis. NEUROLOGIC: On neuro evaluation, speech is clear. Cranial nerves II through XII are grossly intact. Motor strength is 5/5 bilaterally. SKIN: On evaluation of the skin, no ecchymotic areas or rashes noted. DIAGNOSTIC STUDIES/LAB DATA: Laboratory data and studies performed during the ED stay included: Portable chest x-ray reviewed by myself prior to the official radiologist's report showed some mild vascular congestion in bilateral lung bases, no evidence of clear- cut pneumonia. Slightly enlarged cardiac silhouette. White blood cell count of 6.1, hemoglobin of 7.0, hematocrit of 21, MCV of 102, and platelets of 124, which is chronic in this patient. His INR was therapeutic at 2.93. Sodium was 129, potassium 3.6, chloride 88, carbon dioxide 26, BUN 75, creatinine 9.55. His anion gap was slightly elevated at 15, lactic acid of 1.7. Liver function tests unremarkable. Troponin of 0.14. Comparing to his prior troponin in this patient, patient had ranged in troponins between 0.1 to 0.07. The patient's EKG showed normal sinus rhythm with heart rate of 69 beats per minute with nonspecific ST changes, with nonspecific intraventricular conduction delay, and QTc of 492 milliseconds. ASSESSMENT AND PLAN: 1. Dyspnea on exertion and dizziness in patient whose hemoglobin is 7. He still is melenic and heme positive. The patient is going to be placed on telemetry monitored floor. Hemoglobin and hematocrit are going to be checked after transfusion of 1 unit of packed red blood cells tonight. We will consult Dr. Snowden from Gastroenterology, who will likely perform an upper endoscopy tomorrow morning. The patient is going to be placed on Protonix intravenously twice a day as discussed with GI specialist. His INR is going to be reversed with vitamin K that was already ordered by the ED physician at 10 mg IV. 2. In regards to the patient's mildly elevated troponin, it is likely related to demand ischemia in patient with anemia as well as the patient is on peritoneal dialysis. Nevertheless, transthoracic echocardiogram to follow up with patient's moderate mitral regurgitation is going to be obtained. 3. The patient has history of atrial fibrillation, which is paroxysmal, currently in normal sinus rhythm. Amiodarone is going to be continued. Coumadin is going to be reversed. 4. The patient is mildly hyponatremic, likely due to mild dehydration. He had been dry heaving in the past couple of days and his appetite had been low. At this point, I will not institute intravenous hydration due to the fact that the patient's peritoneal dialysis is not going to be performed tonight, but likely tomorrow. I will also transfuse the patient 1 unit of packed red blood cells which will give him additional volume. 5. The patient has history of peritonitis. He was placed on ciprofloxacin by Dr. Saenz from Nephrology. That will be continued IV. 6. The patient's code status is full. His surrogate is his . 7. For DVT prophylaxis, pharmacologic anticoagulation is indicated. His INR is going to be reversed. The patient is going to be placed on sequential compressive devices. TIME SPENT: Approximately 72 minutes was spent on admission of this patient; more than half that time was spent [id number] with the patient during the interview and physical exam. [id number]/[facility] #: [id number] [facility]OS[facility]ITALIrma
[2018-11-30 01:44] LABS: Troponin I 0.13 ng/mL (<0.04)
[2018-11-30 05:57] LABS: ABS Eosinophils 0.2 10^3/ul (0-0.6); ABS Lymphocytes 0.7 10^3/ul (1.0-4.8); ABS Monocytes 0.7 10^3/ul (0-0.8); ABS Neutrophils 2.9 10^3/ul (1.5-7.7); Eosinophil % 3.9 %; Hematocrit 20 % (42-52); Hemoglobin 6.7 g/dL (14.0-18.0); Lymphocyte % 15.1 %; Mean Corpuscular HGB Conc 34 g/dL (31-36); Mean Corpuscular Hemoglobin 34 pg (27-31); Mean Corpuscular Volume 100 fL (80-94); Platelet Count 110 10^3/uL (150-450); Red Cell Distribution Width 17 % (10.5-15); White Blood Count 4.5 10^3/uL (3.5-10.8)
[2018-11-30 06:10] LABS: INR 1.7 (0.82-1.09)
[2018-11-30 06:13] LABS: Calcium 8.4 mg/dL (8.6-10.3); EGFR African American 6.1 (>60); Potassium 3.9 mmol/L (3.5-5.0)
[2018-11-30] MEDS ORDERED: Ciprofloxacin 400MG IVPREMIX(* 400 MG/200 ML BAG IVPB SCH (08:00)
[2018-11-30] MEDS: Pantoprazole IV* 40 MG IV SCH ×2 (09:41→20:24)
[2018-11-30] MEDS: Atorvastatin* 10 MG TAB PO SCH (09:49)
[2018-11-30] MEDS: Amiodarone TAB* 200 MG PO SCH (09:49)
[2018-11-30] MEDS: Allopurinol TAB* 100 MG PO SCH ×2 (09:49→20:22)
[2018-11-30] MEDS: Liothyronine TAB* 25 MCG PO SCH (09:50)
--- NOTE | 2018-11-30 09:50 | PN ---
Subjective Date of Service: 11/30/18 Interval History: Patient is feeling improved this morning. He no longer has nausea and is not retching like he was at home. His dizziness is resolved as he felt good with ambulating to bathroom this morning. He had a headache yesterday which resolved with tylenol. He denies chest pain, dyspnea, abd pain, diarrhea, visual changes. Objective Active Medications: Acetaminophen (Tylenol Tab*) 650 mg PO Q4H PRN PRN Reason: FEVER/PAIN Last Admin: 11/30/18 03:44 Dose: 650 mg Al Hydrox/Mg Hydrox/Simethicone (Maalox Plus*) 30 ml PO Q6H PRN PRN Reason: INDIGESTION Allopurinol (Zyloprim Tab*) 100 mg PO BID ZECHARIAH Amiodarone HCl (Cordarone Tab*) 200 mg PO DAILY ZECHARIAH Atorvastatin Calcium (Lipitor*) 10 mg PO DAILY ZECHARIAH Ciprofloxacin/Dextrose (Cipro 400 Mg Ivpremix(*)) 400 mg in 200 mls @ 200 mls/ hr IVPB Q24H ZECHARIAH; Protocol Liothyronine Sodium (Cytomel Tab*) 75 mcg PO DAILY ZECHARIAH Magnesium Hydroxide (Milk Of Magnesia Liq*) 30 ml PO Q4H PRN PRN Reason: CONSTIPATION Pantoprazole Sodium (Protonix Iv*) 40 mg IV Q12H ZECHARIAH Last Admin: 11/30/18 09:41 Dose: 40 mg Prochlorperazine Edisylate (Compazine Inj*) 5 mg IV Q6H PRN PRN Reason: NAUSEA/VOMITING Vital Signs - 8 hr 11/30/18 11/30/18 11/30/18 02:15 03:33 04:10 Temperature 98.6 F 98.1 F Pulse Rate 66 67 Respiratory 16 20 16 Rate Blood Pressure 148/62 131/61 (mmHg) O2 Sat by Pulse 97 Oximetry Oxygen Devices in Use Now: None Appearance: Elderly white male, appears stated age, laying comfortably in hospital bed, appearing in NAD Eyes: No Scleral Icterus, PERRLA Ears/Nose/Mouth/Throat: Mucous Membranes Moist Neck: NL Appearance and Movements; NL JVP Respiratory: Symmetrical Chest Expansion and Respiratory Effort, Clear to Auscultation Cardiovascular: RRR, - - Grade II systolic murmur consistent with known MR Abdominal: - - BS normoactive x 4quadrants; no abdominal tenderness or distension; abdomen soft; dialysis catheter site without surrounding tenderness or erythema Extremities: No Edema, No Clubbing, Cyanosis, - - neg calf tenderness Skin: No Rash or Ulcers Neurological: Alert and Oriented x 3, NL Muscle Strength and Tone Result Diagrams: 11/30/18 16:54 11/30/18 05:06 Additional Lab and Data: Lab Results 11/29/18 11/29/18 11/29/18 Range/Units 18:47 18:47 18:47 WBC 6.1 (3.5-10.8) 10^3/uL RBC 2.02 L (4.18-5.48) 10^6 /uL Hgb 7.0 L (14.0-18.0) g/dL Hct 21 L (42-52) % MCV 102 H (80-94) fL MCH 34 H (27-31) pg MCHC 34 (31-36) g/dL RDW 16 H (10.5-15) % Plt Count 124 L (150-450) 10^3/uL MPV 8.1 (7.4-10.4) fL Neut % (Auto) 73.5 % Lymph % (Auto) 9.7 % Larue % (Auto) 14.8 % Eos % (Auto) 1.6 % Baso % (Auto) 0.4 % Absolute Neuts (auto) 4.5 (1.5-7.7) 10^3/ul Absolute Lymphs (auto) 0.6 L (1.0-4.8) 10^3/ul Absolute Monos (auto) 0.9 H (0-0.8) 10^3/ul Absolute Eos (auto) 0.1 (0-0.6) 10^3/ul Absolute Basos (auto) 0.0 (0-0.2) 10^3/ul Absolute Nucleated RBC 0.0 10^3/ul Nucleated RBC % 0.0 Sodium 129 L (135-145) mmol/L Potassium 3.6 (3.5-5.0) mmol/L Chloride 88 L (101-111) mmol/L Carbon Dioxide 26 (22-32) mmol/L Anion Gap 15 H (2-11) mmol/L BUN 75 H (6-24) mg/dL Creatinine 9.55 H (0.67-1.17) mg/dL Est GFR ( Amer) 6.3 (>60) Est GFR (Non-Af Amer) 5.2 (>60) BUN/Creatinine Ratio 7.9 L (8-20) Glucose 110 H (70-100) mg/dL Lactic Acid 1.7 (0.5-2.0) mmol/L Calcium 9.3 (8.6-10.3) mg/dL Total Bilirubin 0.30 (0.2-1.0) mg/dL AST 33 (13-39) U/L ALT 39 (7-52) U/L Alkaline Phosphatase 46 (34-104) U/L Troponin I 0.14 H* (<0.04) ng/mL Total Protein 6.4 (6.4-8.9) g/dL Albumin 3.4 (3.2-5.2) g/dL Globulin 3.0 (2-4) g/dL Albumin/Globulin Ratio 1.1 (1-3) Microbiology and Other Data: Microbiology 11/29/18 23:10 Nasal Screen MRSA (PCR) - Final Nasal Mrsa Not Detected 11/29/18 19:36 Stool Occult Blood (MARTHA) - Final Stool Assess/Plan/Problems-Billing Assessment: 88 yo white male with PMHx ESRD on peritoneal dialysis, paroxysmal atrial fib, HTN, mitral regurgitation, hx CVA who presents with nausea, dizziness and found to have hemoglobin to 7.0 with positive blood in stool. Admitted for evaluation and treatment of GI bleed. - Patient Problems (1) Anemia Code(s): D64.9 - ANEMIA, UNSPECIFIED SNOMED Code(s): 213694576 Comment: -Hgb 7.0 at admission --> 6.7 today despite 1 unit PRBCs -likely due to GI bleed, see below -will administer one additional unit of PRBC and recheck H&H (2) GI bleed Code(s): K92.2 - GASTROINTESTINAL HEMORRHAGE, UNSPECIFIED SNOMED Code(s): 23109544 Comment: -Hgb 7.0 at admission, received 1 unit PRBC -positive stool hemoccult -patient was feeling lightheaded at home, which is resolved this morning -Hgb 6.7 this morning despite transfusion; will give additional 1 unit PRBC -EGD with Dr. Snowden planned for this afternoon, appreciate recommendations; pt has been NPO except for meds -continue IV protonix -reversed INR with vitamin K at admission, INR to 1.7 today (3) ESRD on peritoneal dialysis Code(s): N18.6 - END STAGE RENAL DISEASE; Z99.2 - DEPENDENCE ON RENAL DIALYSIS SNOMED Code(s): 15780294 Comment: -creatinine to 9.89 today, was 9.55 at admission yesterday -peritoneal dialysis nurse will initiate PD today, pt did not receive yesterday (4) Elevated troponin Code(s): R74.8 - ABNORMAL LEVELS OF OTHER SERUM ENZYMES SNOMED Code(s): 122925370 Comment: -troponin 0.14->0.13x2 -elevated on several previous hospital visits, likely due to ESRD -there is a possibility of ischemic demand in setting of anemia due to GI bleed -echo ordered, will be completed tomorrow due to none completed on Saturdays -EKG without acute changes; there is minimal ST depression in V5 and V6 which is consistent with previous EKG in July 2018 -telemetry with NSR (5) Peritonitis associated with peritoneal dialysis Code(s): T85.71XA - INFECT/INFLM REACTION DUE TO PERITON DIALYSIS CATHETER, INIT SNOMED Code(s): 948897014 Comment: -2 days prior to admission he reported cloudy peritoneal fluid and was started on ciprofloxacin po by Dr. Saenz to treat likely dialysis catheter-related peritonitis -peritoneal fluid culture was sent to outside lab and therefore we do not have results -patient is asymptomatic, abd exam is benign, afebrile, and without leukocytosis -to continue IV cipro, to administer after PD is completed -will consider CT Abd/pelvis if clinically worsens (6) Atrial fibrillation Code(s): I48.91 - UNSPECIFIED ATRIAL FIBRILLATION SNOMED Code(s): 38724395 Comment: -hx of paroxysmal atrial fibrillation -NSR on telemetry, rate controlled -patient takes warfarin at home; presented with INR of 2.93 which was reversed with IV vit K in setting of anemia d/t GI bleed -INR today 1.70 -continue to hold warfarin; will need to consider alternate anticoagulation after GI bleed resolved or possible discontinuation. HAS-BLED score of 5 now, which indicates 9.1% risk of major bleed (7) Hypertension Code(s): I10 - ESSENTIAL (PRIMARY) HYPERTENSION SNOMED Code(s): 34604347 Comment: -patient has been normotensive today -no home antihypertensive medications (8) History of CVA (cerebrovascular accident) Code(s): Z86.73 - PRSNL HX OF TIA (TIA), AND CEREB INFRC W/O RESID DEFICITS SNOMED Code(s): 562602097 Comment: -continue home statin -holding home aspirin in setting of GI bleed (9) Hypothyroidism Code(s): E03.9 - HYPOTHYROIDISM, UNSPECIFIED SNOMED Code(s): 33183801 Comment: -continue home liothyronine (10) Gout Code(s): M10.9 - GOUT, UNSPECIFIED SNOMED Code(s): 83249414 Comment: -continue home allopurinol (11) DVT prophylaxis Code(s): RIY6101 - SNOMED Code(s): 290652343 Comment: -SCDs ordered -chemical DVT prophylaxis contraindicated in setting of anemia (12) Full code status Code(s): Z78.9 - OTHER SPECIFIED HEALTH STATUS SNOMED Code(s): 963637936
[2018-11-30] MEDS ORDERED: Melatonin 3 MG TAB PO PRN (10:14)
[2018-11-30] MEDS ORDERED: fentaNYL* 50 MCG/ML 2 ML VIAL (100 MCG VIAL) ONE (14:29)
[2018-11-30] MEDS ORDERED: Midazolam* 1 MG/ML 10 ML VIAL (10 MG) ONE (14:29)
--- NOTE | 2018-11-30 16:43 | PN ---
Progress Note - Progress Note Date of Service: 11/30/18 Note: GI Brief EGD Note E: venous blebs, not confluent, would not characterize as varices. No high risk stigmata or signs of recent bleeding G: mild gastritis, no ulcer or erosion. No fresh or old blood D: Normal, no fresh or old blood. Rec: Monitor Hgb, with Fam Hx and ? avms will plan colonoscopy tentatively 12/02 pending clinical course Full liquids tonight Prep 12/01 with clear liquids. Continue to monitor H/H, keep 2 units of PRBC on hold, may decrease PPI to once daily PO. continue cipro thru colonoscopy as prophylaxis given peritoneal dialysis. Varun Snowden DO 11/30/18 [id number]
[2018-11-30 17:06] LABS: Hematocrit 25 % (42-52); Hemoglobin 8.3 g/dL (14.0-18.0)
--- NOTE | 2018-11-30 17:52 | CONS ---
CC: Dr. Selene Conn * CONSULTATION REPORT: DATE OF CONSULT: 11/30/18 PRIMARY CARE PHYSICIAN: Dr. Selene Conn. REASON FOR CONSULT: Melena, anemia. HISTORY OF PRESENT ILLNESS: This is a very pleasant 88-year-old male with past medical history of end-stage renal disease, on peritoneal dialysis who presented to the emergency room with progressive dyspnea and fatigue. He was found to have cloudy peritoneal fluid about 3 days ago and was started on ciprofloxacin by his cardiographer Dr. Saenz. He admits to increasing shortness of breath and lack of energy for the last week. He denies any gross hematochezia, but states that his stool has been dark, but he states that has been dark since he was started on phosphate binder and the iron supplementation. He denies any sticky tar like stool. He denies any abdominal discomfort. Denies any heartburn or reflux on a regular basis. Denies any dysphagia or odynophagia. He moves his bowels normally once a day. Denies any diarrhea or constipation on a regular basis. He will take occasional MiraLAX given the peritoneal fluid from dialysis, it will occasionally give him some difficulties. He had been regular with screening colonoscopies up until about the age of 77. He does have a family history of colorectal cancer in his father , which was quite early at age 43; however, he had negative exams according to the patient up until age 77 and the decision was made to stop screening at that point. He is chronically anticoagulated with Coumadin. His INR was 2.9, which is in normal therapeutic range today after given 10 of vitamin K, it was 1.70. His weight has been stable. The remainder of the 14-point review of systems is grossly negative. PAST MEDICAL HISTORY: Paroxysmal AFib, on anticoagulation; end-stage renal disease, on peritoneal dialysis; hypertension; gout; CVA; skin melanoma; carpal tunnel release; hernia repair; chronic arthritic pain. MEDICINE PRIOR TO ADMISSION: Include: 1. Cipro. 2. Vitamin E. 3. Coumadin. 4. Multivitamin. 5. Ferric citrate. 6. FiberCon. 7. PreserVision. 8. [place]-3 fatty Acid. 9. Aspirin. 10. Simvastatin. 11. Allopurinol. 12. Cytomel. 13. Amiodarone. 14. Polyethylene glycol p.r.n. ALLERGIES: Include PLASTIC TAPE. FAMILY HISTORY: Mother with hypertension. Father with colorectal cancer at age 43. SOCIAL HISTORY: The patient lives with his who is a surrogate. He is independent with his activities of daily living. Denies any alcohol, tobacco or drug use. REVIEW OF SYSTEMS: Remainder of the 14-point review of systems is negative except for as described in the HPI. PHYSICAL EXAM: Vital Signs: Blood pressure 131/61, pulse is 67, respiratory rate is 16, temperature was 98.1. In general, alert and oriented x3, occasional difficulty finding words, but quite has very good insight. HEENT: Atraumatic, normocephalic. Pupils equal, round and reactive to light. Extraocular movements are intact. Conjunctivae are pink. Sclerae anicteric. Neck: Supple. No JVD. Respiratory: Bilateral rales at the base with good aeration. Cardiovascular: Regular rate and rhythm, S1, S2. Abdomen is soft, distended. Bowel sounds present. Positive shifting dullness from peritoneal fluid. Extremities: No edema. Pulses 2+ bilaterally. Skin: A few scattered ecchymotic areas are noted. Psych: Appropriate mood and affect. DIAGNOSTIC STUDIES/LAB DATA: Hemoglobin on admission 7.0, today after transfusion 6.7; platelet count 110. INR is 1.70 today. Sodium 128, potassium 3.9, chloride is 89, CO2 is 26, BUN is 79, creatinine is 9.89, AST 33, ALT is 39 , alkaline phosphatase 46, albumin is 3.4. He had a CT on 11/28/18, that showed fatty infiltration of the liver, diverticulosis and atherosclerosis. ASSESSMENT AND PLAN: This is an 88-year-old male with normocytic anemia with guaiac positive stool, possibly secondary to acute blood loss: 1. Anemia, normocytic with guaiac positivity, possible acute blood loss. Hemodynamically, he is stable. He has had an inappropriate rise to his hemoglobin after transfusion. We will plan on emergent upper endoscopy today to evaluate given the darkness of his stool; however, that is compounded by the medications that he is on. He does have an elevated risk of colorectal cancer and his last colonoscopy was over 10 years ago. If no etiology is found on upper endoscopy, we would recommend consideration for colonoscopy pending clinical course. Recommend continuing H and H every 6 hours, q. 2 units of PRBCs on hold at all times. Agree with IV pantoprazole. 2. Chronic renal failure, on peritoneal dialysis. The patient is on treatment for peritonitis with ciprofloxacin, it is appropriate that this be continued for upper endoscopy as a prophylaxis for translocation. 3. Fatty liver on CT. Platelet count slightly low, but albumin is reasonable and no elevation of bilirubin. There may be some element of hepatic dysfunction here; however, the thrombocytopenia is more likely to be from his renal disease. [id number]/[facility] #: [id number] [facility]
--- NOTE | 2018-11-30 18:56 | PRO ---
CC: Selene Conn MD * EGD REPORT: DATE OF PROCEDURE: 11/30/18 PRIMARY CARE PHYSICIAN: Selene Conn MD INDICATION FOR PROCEDURE: Anemia, guaiac positive. PROCEDURE PERFORMED: Complete esophagogastroduodenoscopy. MEDICATIONS GIVEN: Include: 1. 2 mg IV midazolam. 2. 25 mcg IV fentanyl. DESCRIPTION OF PROCEDURE: After the EGD procedure including the risks, benefits , and alternatives with the risks not limited to perforation, surgery, missed lesions and/or were explained to the patient, written informed consent was obtained. IV medication was given and a bite block was placed between the teeth. The adult Olympus gastroscope was then inserted into the patient's oropharynx into the tubular esophagus. The tubular esophagus had some prominent venous blunting. They were not confluent to characterize them as distinct varices. They were more scattered widely throughout the esophagus with areas without any prominent venous vasculature in between. There was no stigmata of any recent bleeding and no high risk stigmata were noted at all. The scope was then advanced through the lower esophageal sphincter to a patent LES into the stomach. Stomach had some mild gastritis in appearance, it was not biopsied given the anemia. On retroflexion, a small sliding hiatal hernia was appreciated. There was no distinct ulceration visualized. No erosions. There was no fresh or old blood throughout the stomach. The scope was then advanced through the widely patent pylorus into the duodenal bulb, C-loop distal duodenum. These were all normal in appearance without any ulceration or evidence of fresh or old blood. No arteriovenous malformations were identified. The scope was then removed from the patient. He tolerated the procedure well. He returned to the recovery room in stable condition. IMPRESSION: 1. Complete esophagogastroduodenoscopy. 2. Prominent venous architecture of the esophagus, but would not characterize these as varices as they are not confluent. No high risk stigmata appreciated. 3. No fresh or old blood throughout the entire exam. 4. No etiology of anemia identified. RECOMMENDATIONS: Given his family history of colorectal cancer, would give consideration for potential colonoscopy pending on patient's preference and clinical course. It is also entirety possible that given the melena of his stool, that this could be a small bowel bleed which may be difficulty to treat. Would recommend further reversal of his INR, may not be an appropriate candidate for Coumadin in the future. [id number]/[facility] #: [id number] REA
[2018-11-30] MEDS: Ciprofloxacin 400MG IVPREMIX(* 400 MG/200 ML BAG IVPB SCH (23:03)
[2018-12-01 05:55] LABS: ABS Eosinophils 0.2 10^3/ul (0-0.6); ABS Lymphocytes 0.7 10^3/ul (1.0-4.8); ABS Neutrophils 4.2 10^3/ul (1.5-7.7); Eosinophil % 2.9 %; Hematocrit 23 % (42-52); Hemoglobin 7.8 g/dL (14.0-18.0); Lymphocyte % 11.4 %; Mean Corpuscular HGB Conc 34 g/dL (31-36); Mean Corpuscular Hemoglobin 33 pg (27-31); Mean Corpuscular Volume 98 fL (80-94); Platelet Count 109 10^3/uL (150-450); Red Blood Count 2.38 10^6 /uL (4.18-5.48); Red Cell Distribution Width 17 % (10.5-15); White Blood Count 6.1 10^3/uL (3.5-10.8)
[2018-12-01 06:00] LABS: INR 1.16 (0.82-1.09)
[2018-12-01 06:13] LABS: BUN/Creatinine Ratio 6.9 (8-20); Calcium 8.5 mg/dL (8.6-10.3); EGFR African American 5.9 (>60); EGFR Non-African American 4.8 (>60); Potassium 3.8 mmol/L (3.5-5.0)
[2018-12-01] MEDS: Amiodarone TAB* 200 MG PO SCH (08:37)
[2018-12-01] MEDS: Allopurinol TAB* 100 MG PO SCH ×2 (08:37→21:12)
[2018-12-01] MEDS: Atorvastatin* 10 MG TAB PO SCH (08:37)
[2018-12-01] MEDS: Liothyronine TAB* 25 MCG PO SCH (08:37)
[2018-12-01] MEDS: Pantoprazole IV* 40 MG IV SCH (08:38)
[2018-12-01] MEDS ORDERED: Heparin DIALYSIS ONLY(*) 1,000 UNITS/ML VIAL DIALYSIS ONE (12:01)
[2018-12-01] MEDS ORDERED: Benzonatate CAP* 100 MG PO PRN (12:07)
--- NOTE | 2018-12-01 12:09 | PN ---
Subjective Date of Service: 12/01/18 Interval History: Patient reports that he began having a productive cough today, though believes he has had a nonproductive cough for about a week. He reports he initially had nasal congestion one week ago which has since resolved. Patient denies dizziness today. Denies chest pain, difficulty breathing, fever/ chills, abd pain, nausea/vomiting, hematochezia. He did have a melenic bowel movement since evaluation yesterday. Objective Active Medications: Acetaminophen (Tylenol Tab*) 650 mg PO Q4H PRN PRN Reason: FEVER/PAIN Last Admin: 11/30/18 03:44 Dose: 650 mg Al Hydrox/Mg Hydrox/Simethicone (Maalox Plus*) 30 ml PO Q6H PRN PRN Reason: INDIGESTION Allopurinol (Zyloprim Tab*) 100 mg PO BID [facility] Last Admin: 12/01/18 08:37 Dose: 100 mg Amiodarone HCl (Cordarone Tab*) 200 mg PO DAILY [facility] Last Admin: 12/01/18 08:37 Dose: 200 mg Atorvastatin Calcium (Lipitor*) 10 mg PO DAILY [facility] Last Admin: 12/01/18 08:37 Dose: 10 mg Heparin Sodium (Porcine) (Heparin Dialysis Only(*)) 2,000 units DIALYSIS ONCE ONE Stop: 12/01/18 12:02 Ciprofloxacin/Dextrose (Cipro 400 Mg Ivpremix(*)) 400 mg in 200 mls @ 200 mls/ hr IVPB 2300 [facility]; Protocol Last Admin: 11/30/18 23:03 Dose: 200 mls/hr Liothyronine Sodium (Cytomel Tab*) 75 mcg PO DAILY [facility] Last Admin: 12/01/18 08:37 Dose: 75 mcg Magnesium Hydroxide (Milk Of Magnesia Liq*) 30 ml PO Q4H PRN PRN Reason: CONSTIPATION Melatonin (Melatonin) 3 mg PO BEDTIME PRN PRN Reason: INSOMNIA Mupirocin (Bactroban 2 % Oint*) 1 applic TOPICAL BID [facility] Pantoprazole Sodium (Protonix Iv*) 40 mg IV Q12H [facility] Last Admin: 12/01/18 08:38 Dose: 40 mg Polyethylene Glycol/Electrolytes (Golytely*) 2,000 ml PO ONCE ONE Stop: 12/01/18 16:01 Polyethylene Glycol/Electrolytes (Golytely*) 2,000 ml PO ONCE ONE Stop: 12/02/18 06:01 Prochlorperazine Edisylate (Compazine Inj*) 5 mg IV Q6H PRN PRN Reason: NAUSEA/VOMITING Vital Signs - 8 hr 12/01/18 12/01/18 12/01/18 07:59 08:00 11:14 Temperature 98.2 F 98.1 F Pulse Rate 66 63 Respiratory 20 18 20 Rate Blood Pressure 142/64 123/55 (mmHg) O2 Sat by Pulse 97 98 Oximetry Oxygen Devices in Use Now: None Appearance: Elderly white male, sitting upright over side of hospital bed, appearing comfortable and in NAD Eyes: No Scleral Icterus, PERRLA Ears/Nose/Mouth/Throat: Mucous Membranes Moist Neck: NL Appearance and Movements; NL JVP, Trachea Midline Respiratory: Symmetrical Chest Expansion and Respiratory Effort, Clear to Auscultation Cardiovascular: NL Sounds; No Murmurs; No JVD, RRR Abdominal: - - Patient with distended abdomen during filling stage of peritoneal dialysis; no abdominal tenderness Extremities: No Edema, No Clubbing, Cyanosis, - - neg calf tenderness Skin: No Rash or Ulcers Neurological: Alert and Oriented x 3, NL Muscle Strength and Tone Result Diagrams: 12/01/18 14:09 12/01/18 05:24 Additional Lab and Data: Lab Results 11/29/18 11/29/18 11/29/18 Range/Units 18:47 18:47 18:47 WBC 6.1 (3.5-10.8) 10^3/uL RBC 2.02 L (4.18-5.48) 10^6 /uL Hgb 7.0 L (14.0-18.0) g/dL Hct 21 L (42-52) % MCV 102 H (80-94) fL MCH 34 H (27-31) pg MCHC 34 (31-36) g/dL RDW 16 H (10.5-15) % Plt Count 124 L (150-450) 10^3/uL MPV 8.1 (7.4-10.4) fL Neut % (Auto) 73.5 % Lymph % (Auto) 9.7 % [place] % (Auto) 14.8 % Eos % (Auto) 1.6 % Baso % (Auto) 0.4 % Absolute Neuts (auto) 4.5 (1.5-7.7) 10^3/ul Absolute Lymphs (auto) 0.6 L (1.0-4.8) 10^3/ul Absolute Monos (auto) 0.9 H (0-0.8) 10^3/ul Absolute Eos (auto) 0.1 (0-0.6) 10^3/ul Absolute Basos (auto) 0.0 (0-0.2) 10^3/ul Absolute Nucleated RBC 0.0 10^3/ul Nucleated RBC % 0.0 Sodium 129 L (135-145) mmol/L Potassium 3.6 (3.5-5.0) mmol/L Chloride 88 L (101-111) mmol/L Carbon Dioxide 26 (22-32) mmol/L Anion Gap 15 H (2-11) mmol/L BUN 75 H (6-24) mg/dL Creatinine 9.55 H (0.67-1.17) mg/dL Est GFR ( Amer) 6.3 (>60) Est GFR (Non-Af Amer) 5.2 (>60) BUN/Creatinine Ratio 7.9 L (8-20) Glucose 110 H (70-100) mg/dL Lactic Acid 1.7 (0.5-2.0) mmol/L Calcium 9.3 (8.6-10.3) mg/dL Total Bilirubin 0.30 (0.2-1.0) mg/dL AST 33 (13-39) U/L ALT 39 (7-52) U/L Alkaline Phosphatase 46 (34-104) U/L Troponin I 0.14 H* (<0.04) ng/mL Total Protein 6.4 (6.4-8.9) g/dL Albumin 3.4 (3.2-5.2) g/dL Globulin 3.0 (2-4) g/dL Albumin/Globulin Ratio 1.1 (1-3) Microbiology and Other Data: Microbiology 11/29/18 23:10 Nasal Screen MRSA (PCR) - Final Nasal Mrsa Not Detected 11/29/18 19:36 Stool Occult Blood (MARTHA) - Final Stool Assess/Plan/Problems-Billing Assessment: 88 yo white male with PMHx ESRD on peritoneal dialysis, paroxysmal atrial fib, HTN, mitral regurgitation, hx CVA who presents with nausea, dizziness and found to have hemoglobin to 7.0 with positive blood in stool. Admitted for evaluation and treatment of GI bleed. - Patient Problems (1) Anemia Code(s): D64.9 - ANEMIA, UNSPECIFIED SNOMED Code(s): 942127592 Comment: -Hgb 7.0 at admission -likely due to GI bleed, see below -patient has received 2 total units of PRBCs -Hgb 6.7 yesterday, then 8.3 after 1 unit PRBCs; Hgb 7.8 this AM -continue to monitor H&H q8h and will give additional transfusion if Hgb<7 (2) GI bleed Code(s): K92.2 - GASTROINTESTINAL HEMORRHAGE, UNSPECIFIED SNOMED Code(s): 29049337 Comment: -Hgb 7.0 at admission, has received total 2 units PRBCs, Hgb 7.8 today -positive stool hemoccult -EGD with Dr. Snowden yesterday without evidence of bleeding -colonscopy for tomorrow planned; pt to start bowel prep this evening and will be NPO after midnight -currently on clear liquid diet -switch IV protonix to PO one dose tomorrow and then can d/c after as there is no upper GI source of bleed -reversed INR with vitamin K at admission, INR to 1.16 today (3) Cough Code(s): R05 - COUGH SNOMED Code(s): 33869625 Comment: -new complaint today, reports there is some phlegm production today but has had cough for 1 week which initially began as nasal congesiton -nasal congestion has since resolved -pt denies seasonal allergies -likely a viral URI, but will check sputum culture; low suspicion for pneumonia as patient is without clinical signs of infection and lungs are clear -ordered BID mucinex and prn tessalon perles (4) ESRD on peritoneal dialysis Code(s): N18.6 - END STAGE RENAL DISEASE; Z99.2 - DEPENDENCE ON RENAL DIALYSIS SNOMED Code(s): 71538827 Comment: -creatinine to 10.23 today, was 9.55 at admission -peritoneal dialysis again today -will continue to monitor Cr (5) Elevated troponin Code(s): R74.8 - ABNORMAL LEVELS OF OTHER SERUM ENZYMES SNOMED Code(s): 813429734 Comment: -troponin 0.14->0.13x2 -elevated on several previous hospital visits, likely due to ESRD -there is a possibility of ischemic demand in setting of anemia due to GI bleed -EKG without acute changes; there is minimal ST depression in V5 and V6 which is consistent with previous EKG in July 2018 -telemetry with NSR -awaiting echo (6) Peritonitis associated with peritoneal dialysis Code(s): T85.71XA - INFECT/INFLM REACTION DUE TO PERITON DIALYSIS CATHETER, INIT SNOMED Code(s): 657679669 Comment: -2 days prior to admission he reported cloudy peritoneal fluid and was started on ciprofloxacin po by Dr. Sanez to treat likely dialysis catheter-related peritonitis -peritoneal fluid culture was sent to outside lab and therefore we do not have results -patient is asymptomatic, abd exam is benign, afebrile, and without leukocytosis -to continue IV cipro, to administer after PD is completed -will consider CT Abd/pelvis if clinically worsens (7) Atrial fibrillation Code(s): I48.91 - UNSPECIFIED ATRIAL FIBRILLATION SNOMED Code(s): 16671293 Comment: -hx of paroxysmal atrial fibrillation -NSR on telemetry, rate controlled -patient takes warfarin at home; presented with INR of 2.93 which was reversed with IV vit K in setting of anemia d/t GI bleed -INR today 1.70 -continue to hold warfarin; will need to consider alternate anticoagulation after GI bleed resolved or possible discontinuation. HAS-BLED score of 5 now, which indicates 9.1% risk of major bleed -continue home amiodarone (8) Hypertension Code(s): I10 - ESSENTIAL (PRIMARY) HYPERTENSION SNOMED Code(s): 72211625 Comment: -patient has been normotensive today -no home antihypertensive medications (9) History of CVA (cerebrovascular accident) Code(s): Z86.73 - PRSNL HX OF TIA (TIA), AND CEREB INFRC W/O RESID DEFICITS SNOMED Code(s): 019110793 Comment: -continue home statin -holding home aspirin in setting of GI bleed (10) Hypothyroidism Code(s): E03.9 - HYPOTHYROIDISM, UNSPECIFIED SNOMED Code(s): 37096389 Comment: -continue home liothyronine (11) Gout Code(s): M10.9 - GOUT, UNSPECIFIED SNOMED Code(s): 01180426 Comment: -continue home allopurinol (12) DVT prophylaxis Code(s): PDO5089 - SNOMED Code(s): 923551507 Comment: -SCDs ordered -chemical DVT prophylaxis contraindicated in setting of anemia (13) Full code status Code(s): Z78.9 - OTHER SPECIFIED HEALTH STATUS SNOMED Code(s): 571483647
[2018-12-01 14:28] LABS: Hematocrit 26 % (42-52); Hemoglobin 8.8 g/dL (14.0-18.0)
[2018-12-01] MEDS ORDERED: PEG 3000 GI LAVAGE* 1 GALLON PO ONE (16:00)
[2018-12-01] MEDS: Mupirocin 2% OINT* TUBE TOPICAL SCH (21:12)
[2018-12-01] MEDS: guaiFENesin ER TAB 600 MG PO SCH (21:12)
[2018-12-01 22:37] LABS: Hematocrit 24 % (42-52); Hemoglobin 8.2 g/dL (14.0-18.0)
[2018-12-01] MEDS: Ciprofloxacin 400MG IVPREMIX(* 400 MG/200 ML BAG IVPB SCH (22:58)
[2018-12-02] MEDS ORDERED: PEG 3000 GI LAVAGE* 1 GALLON PO ONE ×2 (06:00→20:00)
[2018-12-02 06:48] LABS: ABS Eosinophils 0.2 10^3/ul (0-0.6); ABS Lymphocytes 0.7 10^3/ul (1.0-4.8); ABS Monocytes 0.8 10^3/ul (0-0.8); ABS Neutrophils 4.6 10^3/ul (1.5-7.7); Eosinophil % 3.6 %; Hematocrit 24 % (42-52); Hemoglobin 8.1 g/dL (14.0-18.0); Mean Corpuscular HGB Conc 34 g/dL (31-36); Mean Corpuscular Hemoglobin 34 pg (27-31); Mean Corpuscular Volume 99 fL (80-94); Mean Platelet Volume 7.7 fL (7.4-10.4); Platelet Count 123 10^3/uL (150-450); Red Cell Distribution Width 17 % (10.5-15); White Blood Count 6.4 10^3/uL (3.5-10.8)
[2018-12-02 07:07] LABS: BUN/Creatinine Ratio 6.7 (8-20); Calcium 8.4 mg/dL (8.6-10.3); EGFR African American 6.4 (>60); EGFR Non-African American 5.3 (>60); Potassium 3.7 mmol/L (3.5-5.0)
[2018-12-02] MEDS: PROCHLORPERAZINE INJ 5 MG/ML 2 ML VIAL IV PRN (07:50)
[2018-12-02] MEDS ORDERED: Pantoprazole TAB * 40 MG TAB PO ONE (09:00)
[2018-12-02] MEDS: Liothyronine TAB* 25 MCG PO SCH (10:06)
[2018-12-02] MEDS: Atorvastatin* 10 MG TAB PO SCH (10:07)
[2018-12-02] MEDS: guaiFENesin ER TAB 600 MG PO SCH ×2 (10:08→20:17)
[2018-12-02] MEDS: Allopurinol TAB* 100 MG PO SCH ×2 (10:08→20:17)
[2018-12-02] MEDS: Amiodarone TAB* 200 MG PO SCH (10:08)
[2018-12-02] MEDS: Mupirocin 2% OINT* TUBE TOPICAL SCH ×2 (10:09→20:18)
--- NOTE | 2018-12-02 12:51 | PN ---
Subjective Date of Service: 12/02/18 Interval History: Patient feels more fatigued today. He walked around the unit and did not experience lightheadedness. He was close to finishing bowel prep for colonoscopy today when he developed nausea and vomited once. His nausea has since resolved. His BMs have continued to be black, though now are clear d/t bowel prep. Patient denies chest pain, dyspnea, fever/chills, abd pain. Objective Active Medications: Acetaminophen (Tylenol Tab*) 650 mg PO Q4H PRN PRN Reason: FEVER/PAIN Last Admin: 11/30/18 03:44 Dose: 650 mg Al Hydrox/Mg Hydrox/Simethicone (Maalox Plus*) 30 ml PO Q6H PRN PRN Reason: INDIGESTION Allopurinol (Zyloprim Tab*) 100 mg PO BID [facility] Last Admin: 12/02/18 10:08 Dose: 100 mg Amiodarone HCl (Cordarone Tab*) 200 mg PO DAILY [facility] Last Admin: 12/02/18 10:08 Dose: 200 mg Atorvastatin Calcium (Lipitor*) 10 mg PO DAILY [facility] Last Admin: 12/02/18 10:07 Dose: 10 mg Benzonatate (Tessalon Cap*) 100 mg PO BID PRN PRN Reason: COUGH Guaifenesin (Mucinex*) 600 mg PO BID [facility] Last Admin: 12/02/18 10:08 Dose: 600 mg Ciprofloxacin/Dextrose (Cipro 400 Mg Ivpremix(*)) 400 mg in 200 mls @ 200 mls/ hr IVPB 2300 [facility]; Protocol Last Admin: 12/01/18 22:58 Dose: 200 mls/hr Liothyronine Sodium (Cytomel Tab*) 75 mcg PO DAILY [facility] Last Admin: 12/02/18 10:06 Dose: 75 mcg Magnesium Hydroxide (Milk Of Magnesia Liq*) 30 ml PO Q4H PRN PRN Reason: CONSTIPATION Melatonin (Melatonin) 3 mg PO BEDTIME PRN PRN Reason: INSOMNIA Mupirocin (Bactroban 2 % Oint*) 1 applic TOPICAL BID [facility] Last Admin: 12/02/18 10:09 Dose: Not Given Prochlorperazine Edisylate (Compazine Inj*) 5 mg IV Q6H PRN PRN Reason: NAUSEA/VOMITING Last Admin: 12/02/18 07:50 Dose: 5 mg Vital Signs - 8 hr 12/02/18 12/02/18 08:00 11:37 Respiratory 18 Rate Blood Pressure 166/82 (mmHg) Oxygen Devices in Use Now: None Appearance: Elderly, white male laying upright in hospital bed, appearing comfortable and in NAD Eyes: No Scleral Icterus, PERRLA Ears/Nose/Mouth/Throat: Mucous Membranes Moist Neck: NL Appearance and Movements; NL JVP Respiratory: Symmetrical Chest Expansion and Respiratory Effort, Clear to Auscultation Cardiovascular: NL Sounds; No Murmurs; No JVD, RRR Abdominal: NL Sounds; No Tenderness; No Distention, - Extremities: No Edema, No Clubbing, Cyanosis, - - Neg calf tenderness Skin: No Rash or Ulcers Neurological: Alert and Oriented x 3, NL Muscle Strength and Tone Result Diagrams: 12/02/18 06:34 12/02/18 06:34 Additional Lab and Data: Lab Results 11/29/18 11/29/18 11/29/18 Range/Units 18:47 18:47 18:47 WBC 6.1 (3.5-10.8) 10^3/uL RBC 2.02 L (4.18-5.48) 10^6 /uL Hgb 7.0 L (14.0-18.0) g/dL Hct 21 L (42-52) % MCV 102 H (80-94) fL MCH 34 H (27-31) pg MCHC 34 (31-36) g/dL RDW 16 H (10.5-15) % Plt Count 124 L (150-450) 10^3/uL MPV 8.1 (7.4-10.4) fL Neut % (Auto) 73.5 % Lymph % (Auto) 9.7 % [place] % (Auto) 14.8 % Eos % (Auto) 1.6 % Baso % (Auto) 0.4 % Absolute Neuts (auto) 4.5 (1.5-7.7) 10^3/ul Absolute Lymphs (auto) 0.6 L (1.0-4.8) 10^3/ul Absolute Monos (auto) 0.9 H (0-0.8) 10^3/ul Absolute Eos (auto) 0.1 (0-0.6) 10^3/ul Absolute Basos (auto) 0.0 (0-0.2) 10^3/ul Absolute Nucleated RBC 0.0 10^3/ul Nucleated RBC % 0.0 Sodium 129 L (135-145) mmol/L Potassium 3.6 (3.5-5.0) mmol/L Chloride 88 L (101-111) mmol/L Carbon Dioxide 26 (22-32) mmol/L Anion Gap 15 H (2-11) mmol/L BUN 75 H (6-24) mg/dL Creatinine 9.55 H (0.67-1.17) mg/dL Est GFR ( Amer) 6.3 (>60) Est GFR (Non-Af Amer) 5.2 (>60) BUN/Creatinine Ratio 7.9 L (8-20) Glucose 110 H (70-100) mg/dL Lactic Acid 1.7 (0.5-2.0) mmol/L Calcium 9.3 (8.6-10.3) mg/dL Total Bilirubin 0.30 (0.2-1.0) mg/dL AST 33 (13-39) U/L ALT 39 (7-52) U/L Alkaline Phosphatase 46 (34-104) U/L Troponin I 0.14 H* (<0.04) ng/mL Total Protein 6.4 (6.4-8.9) g/dL Albumin 3.4 (3.2-5.2) g/dL Globulin 3.0 (2-4) g/dL Albumin/Globulin Ratio 1.1 (1-3) Microbiology and Other Data: Microbiology 11/29/18 23:10 Nasal Screen MRSA (PCR) - Final Nasal Mrsa Not Detected 11/29/18 19:36 Stool Occult Blood (MARTHA) - Final Stool Assess/Plan/Problems-Billing Assessment: 88 yo white male with PMHx ESRD on peritoneal dialysis, paroxysmal atrial fib, HTN, mitral regurgitation, hx CVA who presents with nausea, dizziness and found to have hemoglobin to 7.0 with positive blood in stool. Admitted for evaluation and treatment of GI bleed. - Patient Problems (1) Anemia Code(s): D64.9 - ANEMIA, UNSPECIFIED SNOMED Code(s): 170724871 Comment: -Hgb 7.0 at admission -likely due to GI bleed, see below -patient has received 2 total units of PRBCs total -Hgb this AM is 8.1 -continue to monitor H&H q8h and will give additional transfusion if Hgb<7 (2) GI bleed Code(s): K92.2 - GASTROINTESTINAL HEMORRHAGE, UNSPECIFIED SNOMED Code(s): 67995647 Comment: -Hgb 7.0 at admission, has received total 2 units PRBCs -positive stool hemoccult -reversed INR with vitamin K at admission, INR to 1.16 yesterday -EGD with Dr. Snowden yesterday without evidence of bleeding -colonscopy this afternoon; pt received golytely -d/c PPI -stools continue to be melenic; Hgb today 8.1 (3) Cough Code(s): R05 - COUGH SNOMED Code(s): 66821183 Comment: -likely a viral URI, but will check sputum culture; low suspicion for pneumonia as patient is without clinical signs of infection and lungs reamin clear -continue BID mucinex and prn tessalon perles -no complaints today (4) ESRD on peritoneal dialysis Code(s): N18.6 - END STAGE RENAL DISEASE; Z99.2 - DEPENDENCE ON RENAL DIALYSIS SNOMED Code(s): 28933399 Comment: -creatinine to 9.51 today -peritoneal dialysis today after colonoscopy -will continue to monitor Cr (5) Elevated troponin Code(s): R74.8 - ABNORMAL LEVELS OF OTHER SERUM ENZYMES SNOMED Code(s): 206829288 Comment: -troponin 0.14->0.13x2 -elevated on several previous hospital visits, likely due to ESRD -there is a possibility of ischemic demand in setting of anemia due to GI bleed -EKG without acute changes; there is minimal ST depression in V5 and V6 which is consistent with previous EKG in July 2018 -telemetry with NSR -echo performed today, awaiting report (6) Peritonitis associated with peritoneal dialysis Code(s): T85.71XA - INFECT/INFLM REACTION DUE TO PERITON DIALYSIS CATHETER, INIT SNOMED Code(s): 292167611 Comment: -2 days prior to admission he reported cloudy peritoneal fluid and was started on ciprofloxacin po by Dr. Saenz to treat likely dialysis catheter-related peritonitis -peritoneal fluid culture was sent to outside lab and therefore we do not have results -to continue IV cipro, to administer after PD is completed -will consider CT Abd/pelvis if clinically worsens -abd exam remains benign and pt without leukocytosis (7) Atrial fibrillation Code(s): I48.91 - UNSPECIFIED ATRIAL FIBRILLATION SNOMED Code(s): 94195768 Comment: -hx of paroxysmal atrial fibrillation -NSR on telemetry, rate controlled -patient takes warfarin at home; presented with INR of 2.93 which was reversed with IV vit K in setting of anemia d/t GI bleed -INR today 1.70 -continue to hold warfarin; will need to consider alternate anticoagulation after GI bleed resolved or possible discontinuation. HAS-BLED score of 5 now, which indicates 9.1% risk of major bleed -continue home amiodarone (8) Hypertension Code(s): I10 - ESSENTIAL (PRIMARY) HYPERTENSION SNOMED Code(s): 69347361 Comment: -patient with mild hypertensive today with SBP to 160s, will continue to monitor -no home antihypertensive medications (9) History of CVA (cerebrovascular accident) Code(s): Z86.73 - PRSNL HX OF TIA (TIA), AND CEREB INFRC W/O RESID DEFICITS SNOMED Code(s): 451106900 Comment: -continue home statin -holding home aspirin in setting of GI bleed (10) Hypothyroidism Code(s): E03.9 - HYPOTHYROIDISM, UNSPECIFIED SNOMED Code(s): 80303973 Comment: -continue home liothyronine (11) Gout Code(s): M10.9 - GOUT, UNSPECIFIED SNOMED Code(s): 57151204 Comment: -continue home allopurinol (12) DVT prophylaxis Code(s): IGB4825 - SNOMED Code(s): 083711614 Comment: -SCDs ordered -chemical DVT prophylaxis contraindicated in setting of anemia (13) Full code status Code(s): Z78.9 - OTHER SPECIFIED HEALTH STATUS SNOMED Code(s): 672711206
--- NOTE | 2018-12-02 13:04 | ECHO ---
*[facility]* [place] [address] Fax #: [phone] Patient: Ac, Height: 68 in / David Santiago 172.7 cm : 1930 Weight: 179.6 lb / Study Date: 12/02/2018 81.6 kg Age: 88 BP: 153 / 70 Gender: M BMI/BSA: 27.4 kg/m^2 HR: 68 bpm / 1.95 m^2 *[employer]: * Cee Turner [facility] *Referring Physician: * Opal Wong *Reading Physician: * Rey Adair MD Indications: SOB. Elevated TROP. History: Atrial fibrillation. Mitral regurgitation. Cerebrovascular accident. Transient ischemic attack. Dialysis-dependent renal disease. Risk factors: Hypertension. Conclusions Summary: 1. Left ventricle: The cavity size is mildly dilated. Wall thickness is mildly to moderately increased. Systolic function is normal. The estimated ejection fraction is 50-55%. 2. Right ventricle: Systolic function is normal. Systolic pressure is moderately increased. 3. Mitral valve: There is mild regurgitation. 4. Aortic valve: There is no evidence of stenosis. There is mild to moderate regurgitation. 5. Tricuspid valve: There is mild regurgitation. 6. Pericardium, extracardiac: There is no significant pericardial effusion. 7. No change from 06/26/18. Study data: Procedure: Transthoracic echocardiography was performed. Image quality was good. Complete 2D, spectral Doppler, and color flow Doppler. Location: Bedside. Patient status: Inpatient. Patient room number: 439. Rhythm: Normal sinus rhythm. Findings Left ventricle: The cavity size is mildly dilated. Wall thickness is mildly to moderately increased. Systolic function is normal. The estimated ejection fraction is 50-55%. Doppler parameters are consistent with abnormal left ventricular relaxation (grade 1 diastolic dysfunction). Right ventricle: Wall thickness is mildly increased. Systolic function is normal. Systolic pressure is moderately increased. Left atrium: The atrium is moderately to severely dilated. Right atrium: The atrium is moderately dilated. Mitral valve: The annulus is mildly to moderately calcified. The leaflets are mildly calcified. There is no evidence of stenosis. There is mild regurgitation. Aortic valve: The annulus is mildly calcified. The valve is trileaflet. The leaflets are mildly thickened. There is no evidence of stenosis. There is mild to moderate regurgitation. Tricuspid valve: The leaflets are normal thickness. There is no evidence of stenosis. There is mild regurgitation. Pulmonic valve: The leaflets are normal thickness. There is no evidence of stenosis. There is mild to moderate regurgitation. Aorta: Aortic root: The aortic root is appears normal. Ascending aorta: The ascending aorta is mildly dilated. Aortic arch: The aortic arch is appears normal. Pericardium: There is no significant pericardial effusion. Pulmonary arteries: Not well visualized. Systemic veins: Inferior vena cava: The vessel is dilated. The respirophasic diameter changes are in the normal range (>= 50%). Measurements Left ventricle Value Ref Aortic valve continued Value Ref VANESSA, LAX (H) 6.0 cm 4.2 - 5.8 Mean grad, S 8.0 mm Hg ----- ESD, LAX (H) 4.1 cm 2.5 - 4.0 Peak grad, S 18.0 mm Hg ----- FS, LAX 31 % 25 - 43 LVOT/AV, VTI ratio 0.62 ----- PW, ED, LAX (H) 1.1 cm 0.6 - 1.0 CRISTINA, VTI 2.60 cm^2 ----- EF 58 % 52 - 72 CRISTINA, Vmax 2.40 cm^2 ----- E', lat marycruz, TDI (L) 3.9 cm/sec >=10.0 E/e', lat marycruz, 27 Mitral valve Value Ref TDI Peak E 1.07 m/sec ----- E', med marycruz, TDI (L) 4.6 cm/sec >=7.0 Peak A 1.64 m/sec - ---- E/e', med marycruz, 23 Decel time 209 ms ---- - TDI PHT 115 ms ----- E', avg, TDI 4.3 cm/sec Mean grad, D 4.0 mm Hg ---- - E/e', avg, TDI (H) 25 <=14 Peak grad, D 12.0 mm Hg - ---- Peak E/A ratio 0.7 ----- LVOT Value Ref MVA, PHT 1.9 cm^2 ----- Diam, S 2.30 cm Area 4.2 cm^2 Pulmonic valve Value Ref Peak crispin, S 1.08 m/sec Peak v, S 0.9 m/sec ----- VTI, S 25.5 cm Peak grad, S 3.0 mm Hg ----- Mean grad, S 3 mm Hg Tricuspid valve Value Ref Ventricular septum Value Ref TR peak v (H) 3.1 m/sec <=2.8 IVS, ED (H) 1.3 cm 0.6 - 1.0 Peak RV-RA grad, S 38 mm Hg ----- Right ventricle Value Ref Aortic root Value Ref VANESSA, LAX 3.4 cm Root diam 3.2 cm <4.1 VANESSA minor ax, A4C 3.2 cm 1.9 - 3.5 mid Ascending aorta Value Ref Pressure, S 46 mm Hg AAo AP diam, S 3.8 cm ----- Left atrium Value Ref Aortic arch Value Ref AP dim, ES (H) 4.80 cm 3.00 - Arch diam 3.2 cm ----- 4.00 ML dim, A4C 4.6 cm Decending aorta Value Ref SI dim, A4C 6.6 cm Axel peak crispin 0.57 m/sec ----- Vol/bsa, ES, A/L (H) 45 ml/m^2 16 - 34 Pulmonary artery Value Ref Right atrium Value Ref Pressure, S 43.0 mm Hg ----- SI dim, ES (H) 6.3 cm 3.4 - 5.3 ML dim, ES, A4C (H) 4.9 cm 2.6 - 4.4 Inferior vena cava Value Ref Estimated RAP 8 mm Hg Diam 2.2 cm ----- Aortic valve Value Ref Marycruz diam, ED 2.4 cm Peak v, S 2.1 m/sec VTI, S 41.0 cm Legend: (L) and (H) adelso values outside specified reference range. Prepared and electronically signed by Rey Adair MD 12/02/2018 13:03
[2018-12-02 13:35] LABS: Hematocrit 23 % (42-52); Hemoglobin 7.9 g/dL (14.0-18.0)
[2018-12-02] MEDS ORDERED: fentaNYL* 50 MCG/ML 2 ML VIAL (100 MCG VIAL) ONE (13:57)
[2018-12-02] MEDS ORDERED: Midazolam* 1 MG/ML 10 ML VIAL (10 MG) ONE (13:57)
--- NOTE | 2018-12-02 20:33 | PRO ---
CC: Dr. Selene Conn * DATE OF PROCEDURE: 12/02/18 - ROOM #439 PROCEDURE: Incomplete colonoscopy. INDICATIONS: Escherichia coli peritonitis, anemia. REFERRING PHYSICIAN: Dr. Selene Conn. MEDICATIONS GIVEN: Fentanyl 75 mcg IV, Versed 2 mg IV. DESCRIPTION OF PROCEDURE: After the colonoscopy procedure, including the risks , benefits, and alternatives, not limited to perforation, surgery, and/or were explained to the patient, written consent was then obtained. IV medication was given and a rectal exam was performed. The rectal exam revealed internal hemorrhoids. An Olympus colonoscope was then inserted into the patient 's rectum and advanced to the mid ascending colon. The patient has extremely severe left- sided diverticulosis. It took an extended amount of time to navigate through the diverticula. I was able to get around to the mid ascending colon; however, due to looping of the scope and adhesions, I was unable to advance any further. Given the fact that he had such severe diverticulosis, I elected not to push any further. 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 I decided to terminate the procedure at the ascending colon and slowly withdrew the scope. I did not see any masses or malignancies. The patient again does have very severe diverticulosis on the left side of the colon. In the rectum, retroflexion maneuver confirmed small internal hemorrhoids. The scope was withdrawn from the patient. He tolerated the procedure well and was returned to his hospital room in stable condition. IMPRESSION: 1. Incomplete colonoscopy to the ascending colon, terminated secondary to severe diverticulosis, adhesions, looping of the scope, morbid obesity. 2. I would like to evaluate the patient's cecum. There was a fair amount of liquid stool throughout the entirety of the colon. I do not think we can get a virtual colonography. At this point, he does need a little bit more prep. I will make arrangement for a little bit more prep to clean him out further and then hopefully a virtual colonography tomorrow. We will follow up. [id number]/CPS #: [id number] REA
[2018-12-02 21:54] LABS: Hematocrit 27 % (42-52); Hemoglobin 9.1 g/dL (14.0-18.0)
[2018-12-02] MEDS: Ciprofloxacin 400MG IVPREMIX(* 400 MG/200 ML BAG IVPB SCH (22:50)
[2018-12-03 06:18] LABS: ABS Eosinophils 0.2 10^3/ul (0-0.6); ABS Lymphocytes 0.4 10^3/ul (1.0-4.8); ABS Monocytes 0.8 10^3/ul (0-0.8); ABS Neutrophils 5.8 10^3/ul (1.5-7.7); Eosinophil % 2.2 %; Hematocrit 22 % (42-52); Hemoglobin 7.6 g/dL (14.0-18.0); Lymphocyte % 5.7 %; Mean Corpuscular HGB Conc 35 g/dL (31-36); Mean Corpuscular Hemoglobin 34 pg (27-31); Mean Corpuscular Volume 98 fL (80-94); Mean Platelet Volume 7.7 fL (7.4-10.4); Platelet Count 120 10^3/uL (150-450); Red Blood Count 2.26 10^6 /uL (4.18-5.48); Red Cell Distribution Width 17 % (10.5-15); White Blood Count 7.3 10^3/uL (3.5-10.8)
[2018-12-03 06:38] LABS: BUN/Creatinine Ratio 5.6 (8-20); EGFR African American 6.4 (>60); EGFR Non-African American 5.3 (>60); Potassium 2.9 mmol/L (3.5-5.0)
[2018-12-03] MEDS: PROCHLORPERAZINE INJ 5 MG/ML 2 ML VIAL IV PRN (07:01)
[2018-12-03] MEDS ORDERED: PEG 3000 GI LAVAGE* 1 GALLON PO ONE (08:00)
[2018-12-03] MEDS: Atorvastatin* 10 MG TAB PO SCH (08:49)
[2018-12-03] MEDS: Allopurinol TAB* 100 MG PO SCH ×2 (08:50→21:17)
[2018-12-03] MEDS: Liothyronine TAB* 25 MCG PO SCH (08:50)
[2018-12-03] MEDS: Amiodarone TAB* 200 MG PO SCH (08:50)
[2018-12-03] MEDS: guaiFENesin ER TAB 600 MG PO SCH ×2 (08:50→21:17)
[2018-12-03] MEDS: KCL 20 MEQ/100 ML IVPREMIX* 20 MEQ/100 ML BAG IV SCH ×4 (08:51→21:43)
[2018-12-03] MEDS: Mupirocin 2% OINT* TUBE TOPICAL SCH ×2 (08:57→21:11)
--- NOTE | 2018-12-03 15:03 | PN ---
Subjective Date of Service: 12/03/18 Interval History: Patient developed nausea when drinking bowel prep this morning. He did not vomit. Nausea resolved with compazine. At time of evaluation, patient is feeling well and is resting. He reports his cough is still frequent but is no longer productive. Patient denies fever/chills, chest pain, difficulty breathing , dizziness, abd pain. Objective Active Medications: Acetaminophen (Tylenol Tab*) 650 mg PO Q4H PRN PRN Reason: FEVER/PAIN Last Admin: 11/30/18 03:44 Dose: 650 mg Al Hydrox/Mg Hydrox/Simethicone (Maalox Plus*) 30 ml PO Q6H PRN PRN Reason: INDIGESTION Allopurinol (Zyloprim Tab*) 100 mg PO BID [facility] Last Admin: 12/03/18 08:50 Dose: 100 mg Amiodarone HCl (Cordarone Tab*) 200 mg PO DAILY [facility] Last Admin: 12/03/18 08:50 Dose: 200 mg Atorvastatin Calcium (Lipitor*) 10 mg PO DAILY [facility] Last Admin: 12/03/18 08:49 Dose: 10 mg Benzonatate (Tessalon Cap*) 100 mg PO BID PRN PRN Reason: COUGH Guaifenesin (Mucinex*) 600 mg PO BID [facility] Last Admin: 12/03/18 08:50 Dose: 600 mg Ciprofloxacin/Dextrose (Cipro 400 Mg Ivpremix(*)) 400 mg in 200 mls @ 200 mls/ hr IVPB 2300 [facility]; Protocol Last Admin: 12/02/18 22:50 Dose: 200 mls/hr Liothyronine Sodium (Cytomel Tab*) 75 mcg PO DAILY [facility] Last Admin: 12/03/18 08:50 Dose: 75 mcg Magnesium Hydroxide (Milk Of Magnesia Liq*) 30 ml PO Q4H PRN PRN Reason: CONSTIPATION Melatonin (Melatonin) 3 mg PO BEDTIME PRN PRN Reason: INSOMNIA Mupirocin (Bactroban 2 % Oint*) 1 applic TOPICAL BID [facility] Last Admin: 12/03/18 08:57 Dose: Not Given Prochlorperazine Edisylate (Compazine Inj*) 5 mg IV Q6H PRN PRN Reason: NAUSEA/VOMITING Last Admin: 12/03/18 07:01 Dose: 5 mg Vital Signs - 8 hr 12/03/18 12/03/18 12/03/18 07:17 07:58 11:12 Temperature 98.7 F 97.9 F Pulse Rate 77 72 Respiratory 20 18 16 Rate Blood Pressure 136/62 135/52 (mmHg) O2 Sat by Pulse 96 96 Oximetry Oxygen Devices in Use Now: None Appearance: Elderly white male laying in hospital bed, appearing comfortable and in NAD; at bedside Eyes: No Scleral Icterus, PERRLA Ears/Nose/Mouth/Throat: Mucous Membranes Moist Neck: NL Appearance and Movements; NL JVP Respiratory: Symmetrical Chest Expansion and Respiratory Effort, Clear to Auscultation Cardiovascular: NL Sounds; No Murmurs; No JVD, RRR Abdominal: - - Abdomen soft, nontender, nondistended Extremities: No Edema, No Clubbing, Cyanosis, - - neg calf tenderness Skin: No Rash or Ulcers Neurological: Alert and Oriented x 3, NL Muscle Strength and Tone Result Diagrams: 12/03/18 14:57 12/03/18 14:57 Additional Lab and Data: Lab Results 11/29/18 11/29/18 11/29/18 Range/Units 18:47 18:47 18:47 WBC 6.1 (3.5-10.8) 10^3/uL RBC 2.02 L (4.18-5.48) 10^6 /uL Hgb 7.0 L (14.0-18.0) g/dL Hct 21 L (42-52) % MCV 102 H (80-94) fL MCH 34 H (27-31) pg MCHC 34 (31-36) g/dL RDW 16 H (10.5-15) % Plt Count 124 L (150-450) 10^3/uL MPV 8.1 (7.4-10.4) fL Neut % (Auto) 73.5 % Lymph % (Auto) 9.7 % [place] % (Auto) 14.8 % Eos % (Auto) 1.6 % Baso % (Auto) 0.4 % Absolute Neuts (auto) 4.5 (1.5-7.7) 10^3/ul Absolute Lymphs (auto) 0.6 L (1.0-4.8) 10^3/ul Absolute Monos (auto) 0.9 H (0-0.8) 10^3/ul Absolute Eos (auto) 0.1 (0-0.6) 10^3/ul Absolute Basos (auto) 0.0 (0-0.2) 10^3/ul Absolute Nucleated RBC 0.0 10^3/ul Nucleated RBC % 0.0 Sodium 129 L (135-145) mmol/L Potassium 3.6 (3.5-5.0) mmol/L Chloride 88 L (101-111) mmol/L Carbon Dioxide 26 (22-32) mmol/L Anion Gap 15 H (2-11) mmol/L BUN 75 H (6-24) mg/dL Creatinine 9.55 H (0.67-1.17) mg/dL Est GFR ( Amer) 6.3 (>60) Est GFR (Non-Af Amer) 5.2 (>60) BUN/Creatinine Ratio 7.9 L (8-20) Glucose 110 H (70-100) mg/dL Lactic Acid 1.7 (0.5-2.0) mmol/L Calcium 9.3 (8.6-10.3) mg/dL Total Bilirubin 0.30 (0.2-1.0) mg/dL AST 33 (13-39) U/L ALT 39 (7-52) U/L Alkaline Phosphatase 46 (34-104) U/L Troponin I 0.14 H* (<0.04) ng/mL Total Protein 6.4 (6.4-8.9) g/dL Albumin 3.4 (3.2-5.2) g/dL Globulin 3.0 (2-4) g/dL Albumin/Globulin Ratio 1.1 (1-3) Microbiology and Other Data: Microbiology 11/29/18 23:10 Nasal Screen MRSA (PCR) - Final Nasal Mrsa Not Detected 11/29/18 19:36 Stool Occult Blood (MARTHA) - Final Stool Assess/Plan/Problems-Billing Assessment: 88 yo white male with PMHx ESRD on peritoneal dialysis, paroxysmal atrial fib, HTN, mitral regurgitation, hx CVA who presents with nausea, dizziness and found to have hemoglobin to 7.0 with positive blood in stool. Admitted for evaluation and treatment of GI bleed. - Patient Problems (1) Anemia Code(s): D64.9 - ANEMIA, UNSPECIFIED SNOMED Code(s): 353470199 Comment: -Hgb 7.0 at admission -likely due to GI bleed, see below -patient has received 2 total units of PRBCs total -Hgb this AM is 7.6 -continue to monitor H&H q8h and will give additional transfusion if Hgb<7 (2) GI bleed Code(s): K92.2 - GASTROINTESTINAL HEMORRHAGE, UNSPECIFIED SNOMED Code(s): 06184794 Comment: -Hgb 7.0 at admission, has received total 2 units PRBCs -positive stool hemoccult -reversed INR with vitamin K at admission, INR has since normalized -EGD with Dr. Snowden 12/01 without evidence of bleeding -colonscopy was unable to be completed due to combination of extensive diverticulosis, looping of scope, adhesions, body habitus, and an incomplete bowel prep -Dr. Young suggested virtual colonography today, but radiology would prefer a CT of abd/pelvis with po contrast prior to performing -pt has been NPO -Hgb 7.6 today, will continue to monitor H&H (3) Hypokalemia Code(s): E87.6 - HYPOKALEMIA SNOMED Code(s): 74748471 Comment: -K to 2.9 this morning -possibly related to output for bowel prep -replaced with IV KCl and will recheck BMP (4) Peritonitis Code(s): K65.9 - PERITONITIS, UNSPECIFIED SNOMED Code(s): 25026947 Comment: -2 days prior to admission he reported cloudy peritoneal fluid and was started on ciprofloxacin po by Dr. Saenz to treat peritonitis -peritoneal fluid culture from [facility] lab demonstrated E. coli which is lopez- sensitive, this record is in paper chart and will be scanned into EMR -E. coli culture brings suspicion of possible colon perforation that was missed on CT Abd that was obtained on 11/[address] Saenz and would be quite likely given the extensive diverticulosis; this specimen would therefore make a secondary peritonitis more likely than a dialysis catheter related peritonitis -CT abd/pelvis with PO contrast pending -to continue IV cipro, to administer after PD is completed -abd exam remains benign and pt without leukocytosis (5) Cough Code(s): R05 - COUGH SNOMED Code(s): 39681868 Comment: -likely a viral URI, but will check sputum culture; low suspicion for pneumonia as patient is without clinical signs of infection and lungs reamin clear on exam -continue BID mucinex and prn tessalon perles -sputum culture pending -patient reports cough unchanged (6) ESRD on peritoneal dialysis Code(s): N18.6 - END STAGE RENAL DISEASE; Z99.2 - DEPENDENCE ON RENAL DIALYSIS SNOMED Code(s): 19977175 Comment: -creatinine to 9.47 today -peritoneal dialysis today after imaging -will continue to monitor Cr (7) Elevated troponin Code(s): R74.8 - ABNORMAL LEVELS OF OTHER SERUM ENZYMES SNOMED Code(s): 098003666 Comment: -troponin 0.14->0.13x2 at admission -echo without changes from prior echo in June 2018, no evidence of hypokinesis and therefore likelihood of ACS is low -elevated on several previous hospital visits, likely due to ESRD in combination with a possibility of ischemic demand in setting of anemia due to GI bleed -EKG without acute changes; there is minimal ST depression in V5 and V6 which is consistent with previous EKG in July 2018 -telemetry discontinued (8) Atrial fibrillation Code(s): I48.91 - UNSPECIFIED ATRIAL FIBRILLATION SNOMED Code(s): 33164438 Comment: -hx of paroxysmal atrial fibrillation -no events of a fib on telemetry for first 3 days of admission -patient takes warfarin at home; presented with INR of 2.93 which was reversed with IV vit K in setting of anemia d/t GI bleed -INR today 1.70 -continue to hold warfarin; will need to consider alternate anticoagulation after GI bleed resolved or possible discontinuation. HAS-BLED score of 5 now, which indicates 9.1% risk of major bleed -continue home amiodarone (9) Hypertension Code(s): I10 - ESSENTIAL (PRIMARY) HYPERTENSION SNOMED Code(s): 73220912 Comment: -patient with mild hypertensive today with SBP to 160s, will continue to monitor -no home antihypertensive medications (10) History of CVA (cerebrovascular accident) Code(s): Z86.73 - PRSNL HX OF TIA (TIA), AND CEREB INFRC W/O RESID DEFICITS SNOMED Code(s): 464019946 Comment: -continue home statin -holding home aspirin in setting of GI bleed (11) Hypothyroidism Code(s): E03.9 - HYPOTHYROIDISM, UNSPECIFIED SNOMED Code(s): 09431481 Comment: -continue home liothyronine (12) Gout Code(s): M10.9 - GOUT, UNSPECIFIED SNOMED Code(s): 08912299 Comment: -continue home allopurinol (13) DVT prophylaxis Code(s): VAW6421 - SNOMED Code(s): 542805348 Comment: -SCDs ordered -chemical DVT prophylaxis contraindicated in setting of anemia (14) Full code status Code(s): Z78.9 - OTHER SPECIFIED HEALTH STATUS SNOMED Code(s): 563723188
[2018-12-03 15:06] LABS: Hematocrit 23 % (42-52)
[2018-12-03 15:23] LABS: BUN/Creatinine Ratio 5.5 (8-20); Calcium 8.3 mg/dL (8.6-10.3); EGFR African American 6.2 (>60); EGFR Non-African American 5.2 (>60); Potassium 3.4 mmol/L (3.5-5.0)
[2018-12-03] MEDS ORDERED: Iodixanol* (CONTRAST) 320 MG/ML 100 ML SDV IV ONE (17:53)
[2018-12-03] MEDS: Ciprofloxacin 400MG IVPREMIX(* 400 MG/200 ML BAG IVPB SCH (23:57)
[2018-12-04 00:22] LABS: Hematocrit 22 % (42-52); Hemoglobin 7.5 g/dL (14.0-18.0)
[2018-12-04 05:56] LABS: ABS Eosinophils 0.1 10^3/ul (0-0.6); ABS Lymphocytes 0.6 10^3/ul (1.0-4.8); ABS Monocytes 0.7 10^3/ul (0-0.8); ABS Neutrophils 3.8 10^3/ul (1.5-7.7); Eosinophil % 2.7 %; Hematocrit 21 % (42-52); Hemoglobin 7.3 g/dL (14.0-18.0); Lymphocyte % 10.9 %; Mean Corpuscular HGB Conc 34 g/dL (31-36); Mean Corpuscular Hemoglobin 33 pg (27-31); Mean Corpuscular Volume 98 fL (80-94); Mean Platelet Volume 7.3 fL (7.4-10.4); Platelet Count 116 10^3/uL (150-450); Red Cell Distribution Width 16 % (10.5-15); White Blood Count 5.3 10^3/uL (3.5-10.8)
[2018-12-04 06:18] LABS: BUN/Creatinine Ratio 4.8 (8-20); EGFR African American 6.5 (>60); EGFR Non-African American 5.4 (>60); Potassium 3.2 mmol/L (3.5-5.0)
[2018-12-04] MEDS: Mupirocin 2% OINT* TUBE TOPICAL SCH (07:55)
[2018-12-04] MEDS: guaiFENesin ER TAB 600 MG PO SCH (07:55)
[2018-12-04] MEDS: Allopurinol TAB* 100 MG PO SCH (07:55)
[2018-12-04] MEDS: Amiodarone TAB* 200 MG PO SCH (07:55)
[2018-12-04] MEDS: Atorvastatin* 10 MG TAB PO SCH (07:55)
[2018-12-04] MEDS: Liothyronine TAB* 25 MCG PO SCH (07:55)
--- NOTE | 2018-12-04 12:19 | PN ---
Subjective Date of Service: 12/04/18 Interval History: Patient reports he feels well. No bloody stools. Reports no BM in a few days but also states he has been NPO and did do a bowel cleanse. No abdominal pain. States he feels good. Reports first thing this am he did have some dizziness when he got OOB and had not had that in days since his PRBCs (2 units) transfusion. Since this am denies any further dizziness and states he has been OOB to chair and has ambulated feeling steady on his feet. Denies fever.chills. Objective Active Medications: Acetaminophen (Tylenol Tab*) 650 mg PO Q4H PRN PRN Reason: FEVER/PAIN Last Admin: 11/30/18 03:44 Dose: 650 mg Al Hydrox/Mg Hydrox/Simethicone (Maalox Plus*) 30 ml PO Q6H PRN PRN Reason: INDIGESTION Allopurinol (Zyloprim Tab*) 100 mg PO BID [facility] Last Admin: 12/04/18 07:55 Dose: 100 mg Amiodarone HCl (Cordarone Tab*) 200 mg PO DAILY [facility] Last Admin: 12/04/18 07:55 Dose: 200 mg Atorvastatin Calcium (Lipitor*) 10 mg PO DAILY [facility] Last Admin: 12/04/18 07:55 Dose: 10 mg Benzonatate (Tessalon Cap*) 100 mg PO BID PRN PRN Reason: COUGH Guaifenesin (Mucinex*) 600 mg PO BID [facility] Last Admin: 12/04/18 07:55 Dose: 600 mg Ciprofloxacin/Dextrose (Cipro 400 Mg Ivpremix(*)) 400 mg in 200 mls @ 200 mls/ hr IVPB 2300 [facility]; Protocol Last Admin: 12/03/18 23:57 Dose: 200 mls/hr Liothyronine Sodium (Cytomel Tab*) 75 mcg PO DAILY [facility] Last Admin: 12/04/18 07:55 Dose: 75 mcg Magnesium Hydroxide (Milk Of Magnesia Liq*) 30 ml PO Q4H PRN PRN Reason: CONSTIPATION Melatonin (Melatonin) 3 mg PO BEDTIME PRN PRN Reason: INSOMNIA Mupirocin (Bactroban 2 % Oint*) 1 applic TOPICAL BID [facility] Last Admin: 12/04/18 07:55 Dose: Not Given Prochlorperazine Edisylate (Compazine Inj*) 5 mg IV Q6H PRN PRN Reason: NAUSEA/VOMITING Last Admin: 12/03/18 07:01 Dose: 5 mg Vital Signs - 8 hr 12/04/18 12/04/18 07:19 07:21 Pulse Rate 71 Respiratory 16 18 Rate Blood Pressure 149/67 (mmHg) O2 Sat by Pulse 95 Oximetry Oxygen Devices in Use Now: None Appearance: 88 yo male sitting up in a chair A+Ox3 in NAD. Eyes: PERRLA Ears/Nose/Mouth/Throat: Mucous Membranes Moist Neck: NL Appearance and Movements; NL JVP Respiratory: Symmetrical Chest Expansion and Respiratory Effort, Clear to Auscultation Cardiovascular: NL Sounds; No Murmurs; No JVD, RRR, No Edema Abdominal: NL Sounds; No Tenderness; No Distention Extremities: No Edema, No Clubbing, Cyanosis Skin: No Nodules or Sclerosis Neurological: Alert and Oriented x 3, NL Sensation, NL Muscle Strength and Tone Lines/Tubes/Other Access: Clean, Dry and Intact Peripheral IV Nutrition: Taking PO's Result Diagrams: 12/04/18 14:25 12/04/18 05:45 Additional Lab and Data: Lab Results 11/29/18 11/29/18 11/29/18 Range/Units 18:47 18:47 18:47 WBC 6.1 (3.5-10.8) 10^3/uL RBC 2.02 L (4.18-5.48) 10^6 /uL Hgb 7.0 L (14.0-18.0) g/dL Hct 21 L (42-52) % MCV 102 H (80-94) fL MCH 34 H (27-31) pg MCHC 34 (31-36) g/dL RDW 16 H (10.5-15) % Plt Count 124 L (150-450) 10^3/uL MPV 8.1 (7.4-10.4) fL Neut % (Auto) 73.5 % Lymph % (Auto) 9.7 % [place] % (Auto) 14.8 % Eos % (Auto) 1.6 % Baso % (Auto) 0.4 % Absolute Neuts (auto) 4.5 (1.5-7.7) 10^3/ul Absolute Lymphs (auto) 0.6 L (1.0-4.8) 10^3/ul Absolute Monos (auto) 0.9 H (0-0.8) 10^3/ul Absolute Eos (auto) 0.1 (0-0.6) 10^3/ul Absolute Basos (auto) 0.0 (0-0.2) 10^3/ul Absolute Nucleated RBC 0.0 10^3/ul Nucleated RBC % 0.0 Sodium 129 L (135-145) mmol/L Potassium 3.6 (3.5-5.0) mmol/L Chloride 88 L (101-111) mmol/L Carbon Dioxide 26 (22-32) mmol/L Anion Gap 15 H (2-11) mmol/L BUN 75 H (6-24) mg/dL Creatinine 9.55 H (0.67-1.17) mg/dL Est GFR ( Amer) 6.3 (>60) Est GFR (Non-Af Amer) 5.2 (>60) BUN/Creatinine Ratio 7.9 L (8-20) Glucose 110 H (70-100) mg/dL Lactic Acid 1.7 (0.5-2.0) mmol/L Calcium 9.3 (8.6-10.3) mg/dL Total Bilirubin 0.30 (0.2-1.0) mg/dL AST 33 (13-39) U/L ALT 39 (7-52) U/L Alkaline Phosphatase 46 (34-104) U/L Troponin I 0.14 H* (<0.04) ng/mL Total Protein 6.4 (6.4-8.9) g/dL Albumin 3.4 (3.2-5.2) g/dL Globulin 3.0 (2-4) g/dL Albumin/Globulin Ratio 1.1 (1-3) Microbiology and Other Data: Microbiology 11/29/18 23:10 Nasal Screen MRSA (PCR) - Final Nasal Mrsa Not Detected 11/29/18 19:36 Stool Occult Blood (MARTHA) - Final Stool Assess/Plan/Problems-Billing Assessment: 88 yo white male with PMHx ESRD on peritoneal dialysis, paroxysmal atrial fib, HTN, mitral regurgitation, hx CVA who presents with nausea, dizziness and found to have hemoglobin to 7.0 with positive blood in stool. Admitted for evaluation and treatment of GI bleed. - Patient Problems (1) GI bleed Comment: -Hgb 7.0 at admission, has received total 2 units PRBCs - trending up to Hbg 9 not back down to 7.3 - plan to recheck this afternoon -positive stool hemoccult -reversed INR with vitamin K at admission, INR has since normalized -EGD with Dr. Snowden 12/01 without evidence of bleeding -colonscopy was unable to be completed due to combination of extensive diverticulosis, looping of scope, adhesions, body habitus, and an incomplete bowel prep -Dr. Young suggested virtual colonography today, but radiology would prefer a CT of abd/pelvis with po contrast whic was compeleted for possible virual colon - CT negative; discussed with Dr. Abarca who jimenez not recommend moving forward with the Virtual colon. Recommends holding coumadin for 2 weeks and f/u with PCP. Ok to order diet per GI. Plan to recheck HH if stable can go home if not will give PRBCs (2) Anemia Comment: -Hgb 7.0 at admission -likely due to GI bleed, see below -patient has received 2 total units of PRBCs total -Hgb this AM is 7.3 - see above -continue to monitor H&H q8h and will give additional transfusion if Hgb<7 or symptomatic (3) Cough Status: Acute Comment: -likely a viral URI, sputum culture normal; low suspicion for pneumonia as patient is without clinical signs of infection and lungs remains clear on exam -continue BID mucinex and prn tessalon pearles (4) ESRD on peritoneal dialysis Comment: -peritoneal dialysis QHS -Dialysis team following (5) Elevated troponin Comment: -troponin 0.14->0.13x2 at admission - in the setting of ESRD -echo without changes from prior echo in June 2018, no CP/angina -elevated on several previous hospital visits, likely due to ESRD in combination with a possibility of ischemic demand in setting of anemia due to GI bleed -EKG without acute changes; there is minimal ST depression in V5 and V6 which is consistent with previous EKG in July 2018 -telemetry discontinued (6) Gout Comment: -continue home allopurinol (7) Hypothyroidism Comment: -continue home liothyronine (8) Peritonitis Comment: -2 days prior to admission he reported cloudy peritoneal fluid and was started on ciprofloxacin po by Dr. Saenz to treat peritonitis - Pt reports clear peritoneal fluid this morning per dialysis nurse -peritoneal fluid culture from [facility] lab demonstrated E. coli which is lopez- sensitive, this record is in paper chart and will be scanned into EMR -E. coli culture brings suspicion of possible colon perforation that was missed on CT Abd that was obtained on 11/28; a CT abd/pelvis with PO contrast was performed yesterday and was negative for perf -to continue IV cipro, to administer after PD is completed -abd exam remains benign and pt without leukocytosis (9) Atrial fibrillation Comment: -hx of paroxysmal atrial fibrillation -no events of a fib on telemetry for first 3 days of admission -patient takes warfarin at home; presented with INR of 2.93 which was reversed with IV vit K in setting of anemia d/t GI bleed -continue to hold warfarin; will need to consider alternate anticoagulation after GI bleed resolved or possible discontinuation. HAS-BLED score of 5 now, which indicates 9.1% risk of major bleed. Dr. Abarca recommends holding coumadin for at least 2 weeks and follow up with PCP. -continue home amiodarone (10) Full code status (11) DVT prophylaxis Comment: -SCDs ordered -chemical DVT prophylaxis contraindicated in setting of anemia Status and Disposition: inpatient GI bleed.
[2018-12-04 14:31] LABS: Hematocrit 22 % (42-52); Hemoglobin 7.4 g/dL (14.0-18.0)
[2018-12-04 16:00] VITALS: BP 140/61
[2018-12-04] MEDS ORDERED: EPOETIN ALFA-EPBX * 10,000 UNIT/ML VIAL SUBCUT ONE (17:25)
--- NOTE | 2018-12-04 22:08 | DS ---
CC: Dr. Selene Conn* DISCHARGE SUMMARY: DATE OF ADMISSION: 11/29/18 DATE OF DISCHARGE: 12/04/18 PROVIDER: Julian Chisholm NP ATTENDING PHYSICIAN: Dr. Krause* (report dictated by Julian Chisholm NP). PRIMARY CARE PROVIDER: Dr. Selene Conn. NEPHROLOGY NURSE: Dr. Adair. SALES ASSOCIATE CASHIER: Dr. Saenz. DISCHARGE DIAGNOSES: 1. Gastrointestinal bleed, unclear etiology. 2. Peritonitis. 3. Elevated troponin, likely secondary to end-stage renal disease and/or demand ischemia. 4. End-stage renal disease, on peritoneal dialysis. SECONDARY DIAGNOSES: 1. Paroxysmal atrial fibrillation, status post event monitor placed in August [address] Adair due to the episodes of near syncope. On Coumadin. 2. End-stage renal disease, on peritoneal dialysis at home nightly. 3. Hypertension. 4. "Heart murmur" per echo. History of moderate mitral regurgitation. 5. Gout. 6. History of cerebrovascular accident/transient ischemic attack in . 7. History of skin melanoma. 8. Carpal tunnel release in July 2018. 9. Status post peritoneal dialysis catheter placement. 10. History of hernia repair. 11. 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 DISCHARGE MEDICATIONS: 1. Vitamin E 1000 units p.o. daily. 2. Multivitamin 1 tablet p.o. daily. 3. Ferric citrate 210 p.o. daily. 4. Calcium polycarbophil 625 mg p.o. b.i.d. with meals. 5. PreserVision 2 cap p.o. daily. 6. [place]-3 fatty acids 1000 mg p.o. b.i.d. 7. Aspirin 81 mg p.o. daily. 8. Simvastatin 20 mg p.o. daily. 9. Allopurinol 100 mg p.o. b.i.d. 10. Cytomel 75 mcg p.o. daily. 11. Amiodarone 200 mg p.o. daily. 12. MiraLAX 17 g p.o. daily. New medication: Ciprofloxacin 500 mg p.o. daily x2 weeks for peritonitis. Medication on hold: Coumadin 5 mg Mondays and Fridays and 2.5 mg the remaining days of the week. HISTORY OF PRESENT ILLNESS AND HOSPITAL COURSE: Please see history and physical by Dr. Opal Wong for full admission details, but in summary, this is an 88-year- old male who presented to the emergency department on 11/29/18 with complaints of generalized weakness and lightheadedness, who did report starting 2 days prior to admission he noticed his peritoneal fluid was cloudy and was started on ciprofloxacin by Dr. Saenz. The cultures did end up growing E. coli. The patient had reported the previous 24 hours prior to admission he had intermittently had dry heaves and poor appetite. He reported shortness of breath on exertion and lack of energy for at least the past week. He also reported his stool had been melenic ever since he had been on his iron containing phosphate binder. On admission to the emergency department, noted his hemoglobin was 7, which was new and was heme positive and noted to have melena. He was admitted to the hospitalist service for GI bleed. The patient was admitted to the telemetry unit and was transfused with 1 unit of packed red blood cells. He was started on Protonix IV drip. He was given vitamin K for reversal of his INR which was 2.[address] Snowden, desktop architect , saw the patient in consultation and recommended the patient undergo an upper endoscopy which was performed on 11/30/18, which showed no source of a bleed. Recommendation was for the patient to undergo a colonoscopy which he was prepped for and underwent a colonoscopy with desktop architect, Dr. Kumar, who stated that was an incomplete colonoscopy to the ascending colon, terminated secondary to severe diverticulosis, adhesions, looping of the scope, morbid obesity. Initially there was a thought that the patient would undergo a virtual colonography and the patient did undergo an abdomen and pelvis CT to rule out perforation as possible source for the E. Coli peritonitis. The CT abdomen and pelvis was performed on 12/03/18 which showed no signs of bowel perforation or bowel inflammatory changes and no evidence for bowel obstruction. There was found to be colonic diverticulosis without evidence of acute diverticulitis and there is a prostate gland enlargement and calcification. Dr. Abarca, desktop architect, reviewed the case today and ___ ___ does not recommend doing the virtual colonography and to hold the patient's Coumadin for at least 2 weeks. It is unclear the source of the GI bleeding. Again, recommendation per Dr. Abarca, GI, is to at least hold the Coumadin for 2 weeks. I discussed this with the patient and his . It was recommended to discuss this with his primary care provider. In total, the patient did receive 2 units of packed red blood cells during the hospitalization. His hemoglobin did increase to 9.1 and has slowly drifted down to 7.3. This was rechecked today and was 7.4 this afternoon. No further bloody or melena stools. The patient is asymptomatic from the anemia and has ambulated around the unit without any dizziness or shortness of breath. The patient feels well enough to go home. I did discuss discharge with Dr. Saenz prior to the patient's discharge evening. He recommended giving the patient Epogen 10,000 units subcu and discharge the patient home on ciprofloxacin 500 mg p.o. daily x14 days. This is the patient's second time getting peritonitis. At this point, there is an unclear source. Recommendation per GI is to follow up with another stool for occult blood in the primary care provider's office. The patient has remained hemodynamically stable throughout hospitalization and afebrile. He has had no leukocytosis. Lactic acid was negative. In regard to the patient's elevated troponins, he had 3 troponins, 0.14, 0.13, 0.13, he had no chest pain. EKG had no changes. This was thought to be secondary to end-stage renal disease and/or a combination of demand ischemia in the setting of anemia. The patient's hemoglobin A1c is also noted to be 6.5. This should be followed up with the primary care provider. DISCHARGE PLAN: 1. The patient is stable for discharge home. His is at the bedside and agrees with the plan of care. 2. Follow up with Dr. Saenz within the next couple days. The will call the office in the morning. 3. Follow up with Dr. Selene Conn within the next week. I have asked the patient and the to call and make the appointment as this is a late discharge. 4. Continue peritoneal dialysis as previously scheduled. 5. Discussed with the patient worsening signs and symptoms and when to return to the emergency department. TIME SPENT: Approximately 60 minutes spent on the discharge. JULIAN CHISHOLM NP [id number]/[facility] #: [id number] REA
== END 2018-12-04 18:07 | disposition home or self-care (01) | DRG 377 ==
LOC: ED 18:03 → MEDTELE 21:30
PROVIDERS: ADMIT Internal Medicine; ATTEND Student in an Organized Health Care Education/Training Program
PROC: 30233N1 Transfusion of Nonautologous Red Blood Cells into Peripheral Vein, Percutaneous Approach (ICD-10-PCS; principal; 2018-11-30)
PROC: 3E1M39Z Irrigation of Peritoneal Cavity using Dialysate, Percutaneous Approach (ICD-10-PCS; 2018-11-30)
PROC: 0DJ08ZZ Inspection of Upper Intestinal Tract, Via Natural or Artificial Opening Endoscopic (ICD-10-PCS; 2018-11-30)
PROC: 0DJD8ZZ Inspection of Lower Intestinal Tract, Via Natural or Artificial Opening Endoscopic (ICD-10-PCS; 2018-12-02)
DX: K92.1 Melena (principal); N18.6 End stage renal disease; K65.8 Other peritonitis; I13.11 Hypertensive heart and chronic kidney disease without heart failure, with stage 5 chronic kidney disease, or end stage renal disease; I24.8 Other forms of acute ischemic heart disease; E87.1 Hypo-osmolality and hyponatremia; K57.32 Diverticulitis of large intestine without perforation or abscess without bleeding; T85.71XA Infection and inflammatory reaction due to peritoneal dialysis catheter, initial encounter; I48.0 Paroxysmal atrial fibrillation; E86.0 Dehydration; D50.0 Iron deficiency anemia secondary to blood loss (chronic); I34.0 Nonrheumatic mitral (valve) insufficiency; B96.20 Unspecified Escherichia coli [E. coli] as the cause of diseases classified elsewhere; E03.9 Hypothyroidism, unspecified; K59.09 Other constipation; K66.0 Peritoneal adhesions (postprocedural) (postinfection); M10.9 Gout, unspecified; J06.9 Acute upper respiratory infection, unspecified; E87.6 Hypokalemia; R01.1 Cardiac murmur, unspecified; R05 Cough; R74.8 Abnormal levels of other serum enzymes; X58.XXXA Exposure to other specified factors, initial encounter; G89.29 Other chronic pain; M19.012 Primary osteoarthritis, left shoulder; M19.011 Primary osteoarthritis, right shoulder; K29.70 Gastritis, unspecified, without bleeding; K44.9 Diaphragmatic hernia without obstruction or gangrene; Z99.2 Dependence on renal dialysis; Z86.73 Personal history of transient ischemic attack (TIA), and cerebral infarction without residual deficits; Z85.820 Personal history of malignant melanoma of skin; Z91.048 Other nonmedicinal substance allergy status; Z79.01 Long term (current) use of anticoagulants; Z79.82 Long term (current) use of aspirin; Z79.899 Other long term (current) drug therapy; Z82.49 Family history of ischemic heart disease and other diseases of the circulatory system; Z80.0 Family history of malignant neoplasm of digestive organs
CPT/HCPCS: 36415; 71045; 74177; 80048; 80053; 82272; 83036; 83605; 84484; 85014; 85018; 85025; 85610; 86850; 86900; 86901; 86922; 87070; 87205; 87641; 90945; 93005; 93306; 99156; 99157; 99283; A9270-GY; G0257; J0744; J0780; J1644; J2250; J3010; J3430; J3480; P9040; Q5106; Q9967

== ENCOUNTER 2018-12-08 17:07 | Inpatient (IN) | payer MEDICARE ==
[2018-12-08] MEDS ORDERED: NS 0.9% 1000 ML** 1,000 ML IV ONE (17:56)
[2018-12-08 18:24] LABS: ABS Basophils 0.1 10^3/ul (0-0.2); ABS Eosinophils 0.1 10^3/ul (0-0.6); ABS Lymphocytes 0.7 10^3/ul (1.0-4.8); ABS Monocytes 0.9 10^3/ul (0-0.8); ABS Neutrophils 4.7 10^3/ul (1.5-7.7); Eosinophil % 2.2 %; Hematocrit 23 % (42-52); Hemoglobin 7.5 g/dL (14.0-18.0); Lymphocyte % 10.4 %; Mean Corpuscular HGB Conc 33 g/dL (31-36); Mean Corpuscular Hemoglobin 33 pg (27-31); Mean Corpuscular Volume 100 fL (80-94); Mean Platelet Volume 8.4 fL (7.4-10.4); Platelet Count 148 10^3/uL (150-450); Red Blood Count 2.25 10^6 /uL (4.18-5.48); Red Cell Distribution Width 17 % (10.5-15); White Blood Count 6.4 10^3/uL (3.5-10.8)
[2018-12-08 18:31] LABS: INR 1.06 (0.82-1.09)
[2018-12-08] MEDS ORDERED: Diltiazem IV push/loading dose 5 MG/ML 5 ML vial (25 mg) IV SLOW PU ONE (18:31)
[2018-12-08 18:41] LABS: ALT 24 U/L (7-52); AST 20 U/L (13-39); Albumin 3.2 g/dL (3.2-5.2); Albumin/Globulin Ratio 1.1 (1-3); Alkaline Phosphatase 55 U/L (34-104); Anion Gap 15 mmol/L (2-11); Blood Urea Nitrogen 56 mg/dL (6-24); C Reactive Protein 20.87 mg/L (<8.01); CO2 Carbon Dioxide 27 mmol/L (22-32); Calcium 8.6 mg/dL (8.6-10.3); Chloride 98 mmol/L (101-111); EGFR African American 5.3 (>60); EGFR Non-African American 4.3 (>60); Globulin 2.9 g/dL (2-4); Glucose 137 mg/dL (70-100); Potassium 3.5 mmol/L (3.5-5.0); Sodium 140 mmol/L (135-145); Total Protein 6.1 g/dL (6.4-8.9)
[2018-12-08 18:46] LABS: Troponin I 0.17 ng/mL (<0.04)
[2018-12-08 19:27] LABS: TSH (Thyroid Stimulating Horm) 0.11 mcIU/mL (0.34-5.60)
[2018-12-08] MEDS ORDERED: Diltiazem IV push/loading dose 5 MG/ML 5 ML vial (25 mg) IV SLOW PU PRN (23:44)
[2018-12-09 00:56] LABS: Troponin I 0.24 ng/mL (<0.04)
[2018-12-09 01:07] LABS: CKMB ng/mL 3.8 ng/mL (0.6-6.3)
--- NOTE | 2018-12-09 01:45 | HP ---
ADMITTING HISTORY AND PHYSICAL: DATE OF ADMISSION: 12/08/18 CHIEF COMPLAINT: Weakness. HISTORY OF PRESENT ILLNESS: The patient is an 88-year-old gentleman with history of end-stage renal disease, on peritoneal dialysis for the past year who was admitted on 11/29/18 for similar symptoms of generalized weakness and lightheadedness and at that time, he was diagnosed with gastrointestinal bleed of unclear etiology and was transfused with 2 units PRBC, however, had gradual drop of his H and H prior to discharge, transfusion transpired and was discharged on hemoglobin of 7.4. He was seen at that time by Dr. Kumar who stated that there was an incomplete colonoscopy to the ascending colon and terminated secondary to severe diverticulosis, adhesions, and looping of the scope as well as his morbid obesity. A CT of the abdomen and pelvis was done on 12/03/18, which showed no signs of bowel perforation or inflammatory changes nor evidence for a bowel obstruction. He was subsequently then discharged on after his transfusion and had a followup with Dr. Saenz and his ciprofloxacin, which was originally prescribed as a b.i.d., recommended that this be done for daily instead for a total of 14 days, which today is 9/14 days. He mentions that since discharge, he has not felt any different and has been weak and progressive weakness led to his presentation and on presentation to the ED, he was found to be on AFib with mild rapid ventricular response, the highest being 120. In the ED, he had been given diltiazem 10 mg IV as well as 1 L normal saline bolus. He mentions that since then he has somewhat improved. PAST MEDICAL AND SURGICAL HISTORY: 1. Paroxysmal atrial fibrillation, status post event monitor placed in August [address] Adair due to episodes of near syncope. 2. ESRD, on peritoneal dialysis at home nightly. 3. History of hypertension. 4. Heart murmur as per echocardiogram report. 5. History of paroxysmal atrial fibrillation, on Coumadin. 6. Gout. 7. History of CVA, TIA in 1989. 8. History of skin melanoma. 9. Carpal tunnel release in July 2018. 10. Status post peritoneal dialysis catheter placement in the past. 11. History of hernia repair. 12. 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 MEDICATIONS: His current medications are: 1. Ciprofloxacin. 2. Vitamin E. 3. Multivitamins. 4. FiberCon. 5. PreserVision. Home meds: 1. [place]-3 fatty acids. 2. Vitamin B complex. 3. Allopurinol. 4. Amiodarone. 5. Aspirin. 6. Calcium polycarbophil. 7. Ciprofloxacin. 8. Liothyronine. 9. Multivitamins. 10. Polyethylene glycol. ALLERGIES: PLASTIC TAPE. FAMILY HISTORY: Mother positive for hypertension. Father had history of colon cancer and at the age of 43 from colon cancer. SOCIAL HISTORY: The patient lives with his who is his surrogate. He is fully independent with activities of daily living. The patient denies any history of tobacco, alcohol, or drug use. REVIEW OF SYSTEMS: The patient on admission denied any headaches, dizziness, fevers, chills, nausea, vomiting, chest pain, shortness of breath, increasing coughing or sputum production, abdominal pain, diarrhea, constipation, pain and/ or increased frequency on urination, myalgias, arthralgias, throat pain, or new skin lesions. The rest of the 14-point review of systems is otherwise unremarkable. He does complain of weakness. He mentions that he uses 2 pillows at night, which has been no change since. He mentions that since last fall, he has not been walking as much as he has been and prior to this, he has been walking about 2 to 3 miles and hampered primarily by weakness. PHYSICAL EXAMINATION GENERAL APPEARANCE: The patient is awake, alert, and oriented x3, not in acute distress. VITAL SIGNS: Reveals the most recent vital signs of records with blood pressure of 150/72, 70 beats per minute heart rate, 21 per minute respiratory rate, saturating at 93% on room air. HEENT: Normocephalic, atraumatic. PERRLA. Extraocular muscles intact. Negative for icterus. Moist oral mucosa. Negative throat erythema. NECK: Soft, supple with no cervical lymphadenopathy. Positive for JVD and hepatojugular reflux. CHEST: Clear to auscultation bilaterally with good air entry. No wheezes, rales, or rhonchi. HEART: S1, S2. Irregularly irregular with a positive 3/6 murmur. ABDOMEN: Soft, nondistended, nontender. Normoactive bowel sounds x4 q. with peritoneal dialysis catheter in place. EXTREMITIES: No cyanosis, clubbing, or edema. PSYCHIATRIC: No active psychosis, depression, suicidal or homicidal ideations. SKIN: Warm to touch. DIAGNOSTIC STUDIES/LAB DATA: Most recent and pertinent laboratories drawn shows CBC with normal WBC of 6.4 and platelets of 148, H and H of 7.5 and 23. Normal sodium and potassium. BUN and creatinine were found to be 56 and 11.2. Troponins of 0.17, increasing to 0.20. CRP of 20.87. BNP of 1150. Chest x-ray shows no acute disease per my wet read with probable chronic congestion. EKG shows 113 per minute, AFib rhythm, more pronounced ST segment depression in V5 to V6 as well as inferior leads with J point elevation in V1 to V4, which is not new. This has been confirmed as well with Dr. Rodriguez. ASSESSMENT AND PLAN: The patient is an 88-year-old gentleman with history of paroxysmal atrial fibrillation, previously on Coumadin; end-stage renal disease, on peritoneal dialysis as well as hypertension, being admitted for weakness likely secondary to anemia of chronic disease along with recently acute GI bleed from his last admission. 1. Weakness. Possibly due to anemia and hence we will transfuse with 1 unit of PRBC. He does have some mild form of JVD with hepatojugular reflux and we will defer with Dr. Saenz to determine if more fluids would be needed to be removed tomorrow upon evaluation. At this time, I mentioned he will be transfused with 1 unit of PRBC. 2. Anemia. Likely due to anemia of chronic disease as well as iron deficiency anemia from previous iron studies. We will continue watchful waiting and we will repeat H and H in the a.m. 3. Hypothyroidism. The patient's TSH is mildly suppressed. I am awaiting free T3 levels as well as free T4. I will decrease liothyronine to 50 mcg at this time. Unclear if mild TSH supression may predispose to A.fib w/RVR. 4. Chronic kidney disease, on peritoneal dialysis. We will defer with Dr. Saenz and we will defer with hospitalist rounding in the a.m. to touch base with Dr. Saenz. 5. DVT prophylaxis: We will place the patient on SCD given recent GI bleed. 6. Disposition for PT eval. [id number]/[facility] #: [id number] [facility] CENTERIrma
[2018-12-09 05:07] LABS: Hematocrit 24 % (42-52); Mean Corpuscular HGB Conc 33 g/dL (31-36); Mean Corpuscular Hemoglobin 33 pg (27-31); Mean Corpuscular Volume 98 fL (80-94); Mean Platelet Volume 8.2 fL (7.4-10.4); Platelet Count 142 10^3/uL (150-450); Red Blood Count 2.45 10^6 /uL (4.18-5.48); Red Cell Distribution Width 17 % (10.5-15); White Blood Count 6.6 10^3/uL (3.5-10.8)
[2018-12-09 05:31] LABS: CKMB ng/mL 3.4 ng/mL (0.6-6.3)
[2018-12-09 05:33] LABS: Troponin I 0.24 ng/mL (<0.04)
[2018-12-09 05:46] LABS: Anion Gap 15 mmol/L (2-11); CO2 Carbon Dioxide 24 mmol/L (22-32); Calcium 8.1 mg/dL (8.6-10.3); Chloride 102 mmol/L (101-111); Magnesium 2.2 mg/dL (1.9-2.7); Potassium 3.6 mmol/L (3.5-5.0); Sodium 141 mmol/L (135-145)
[2018-12-09 05:52] LABS: ALT 23 U/L (7-52); AST 18 U/L (13-39); Albumin/Globulin Ratio 1.1 (1-3); Alkaline Phosphatase 42 U/L (34-104); BUN/Creatinine Ratio 5.4 (8-20); Blood Urea Nitrogen 61 mg/dL (6-24); Creatine Kinase 39 U/L (10-223); EGFR African American 5.2 (>60); EGFR Non-African American 4.3 (>60); Globulin 2.7 g/dL (2-4); Glucose 107 mg/dL (70-100); Phosphorus 6.2 mg/dL (2.5-5.0); Total Protein 5.7 g/dL (6.4-8.9)
[2018-12-09] MEDS: Calcium Polycarbophil TAB* 625 MG PO SCH ×2 (09:34→17:09)
[2018-12-09] MEDS: Ciprofloxacin TAB* 500 MG PO SCH (09:35)
[2018-12-09] MEDS: Aspirin EC TAB* 81 MG TAB.EC PO SCH (09:35)
[2018-12-09] MEDS: Atorvastatin* 10 MG TAB PO SCH (09:35)
[2018-12-09] MEDS: Amiodarone TAB* 200 MG PO SCH (09:35)
[2018-12-09] MEDS: Liothyronine TAB* 25 MCG PO SCH (09:35)
[2018-12-09] MEDS: Polyethylene Glycol 3350* 17 GM PACKET PO SCH (09:35)
[2018-12-09] MEDS: Multivitamins/Minerals TAB PO SCH (09:35)
[2018-12-09] MEDS: Allopurinol TAB* 100 MG PO SCH ×2 (09:35→19:58)
[2018-12-09 12:34] LABS: CKMB ng/mL 3.6 ng/mL (0.6-6.3)
--- NOTE | 2018-12-09 15:58 | PN ---
Subjective Date of Service: 12/09/18 Interval History: Feels somewhat better today. He has only walked very short distances here, still some BARTHOLOMEW. No pain. Appetite good. Objective Active Medications: Allopurinol (Zyloprim Tab*) 100 mg PO BID [facility] Last Admin: 12/09/18 09:35 Dose: 100 mg Amiodarone HCl (Cordarone Tab*) 200 mg PO DAILY [facility] Last Admin: 12/09/18 09:35 Dose: 200 mg Aspirin (Aspirin Ec Tab*) 81 mg PO DAILY [facility] Last Admin: 12/09/18 09:35 Dose: 81 mg Atorvastatin Calcium (Lipitor*) 10 mg PO DAILY [facility] Last Admin: 12/09/18 09:35 Dose: 10 mg Calcium Polycarbophil (Fibercon Tab*) 625 mg PO BID WITH MEALS [facility] Last Admin: 12/09/18 09:34 Dose: 625 mg Ciprofloxacin (Cipro Tab*) 500 mg PO DAILY [facility]; Protocol Stop: 12/14/18 08:59 Last Admin: 12/09/18 09:35 Dose: 500 mg Diltiazem HCl (Diltiazem Iv Push/Loading Dose) 10 mg IV SLOW PU Q6H PRN PRN Reason: TACHYCARDIA Liothyronine Sodium (Cytomel Tab*) 50 mcg PO DAILY [facility] Last Admin: 12/09/18 09:35 Dose: 50 mcg Multivitamins/Minerals (Theragran/Minerals Tab*) 1 tab PO DAILY [facility] Last Admin: 12/09/18 09:35 Dose: 1 tab Polyethylene Glycol/Electrolytes (Miralax*) 17 gm PO DAILY [facility] Last Admin: 12/09/18 09:35 Dose: 17 gm Vital Signs - 8 hr 12/09/18 12/09/18 12/09/18 08:00 08:16 09:32 Temperature 97.9 F Pulse Rate 68 Respiratory 20 20 Rate Blood Pressure 124/55 (mmHg) O2 Sat by Pulse 95 Oximetry 12/09/18 11:34 Temperature 98.9 F Pulse Rate 65 Respiratory 16 Rate Blood Pressure 123/61 (mmHg) O2 Sat by Pulse 98 Oximetry Oxygen Devices in Use Now: None Appearance: Alert, partly up in bed. In good spirits. Looks comfortable. Eyes: No Scleral Icterus Respiratory: Symmetrical Chest Expansion and Respiratory Effort, Clear to Auscultation, Clear to Percussion Cardiovascular: NL Sounds; No Murmurs; No JVD, RRR, No Edema, - Extremities: No Clubbing, Cyanosis, - - Tr edema BL Skin: No Rash or Ulcers, No Nodules or Sclerosis, - Neurological: Alert and Oriented x 3, NL Sensation Result Diagrams: 12/09/18 05:00 12/09/18 05:00 Assess/Plan/Problems-Billing Assessment: - Patient Problems (1) Anemia Current Visit: No Status: Acute Code(s): D64.9 - ANEMIA, UNSPECIFIED SNOMED Code(s): 839178154 Comment: -Hgb 8.0 after 1 U PC's 12/09. Colonoscopy 12/02/18 was incomplete, ? will have further testing by GI. (2) ESRD on peritoneal dialysis Current Visit: No Status: Chronic Code(s): N18.6 - END STAGE RENAL DISEASE; Z99.2 - DEPENDENCE ON RENAL DIALYSIS SNOMED Code(s): 44967882 Comment: -peritoneal dialysis QHS, running 12/09, missed 12/08. -Dialysis team following (3) Hypothyroidism Current Visit: No Status: Acute Code(s): E03.9 - HYPOTHYROIDISM, UNSPECIFIED SNOMED Code(s): 87397376 Comment: TSH was 0.11 on 12/08/18, liothyronine dose decreased to 50 mcg daily.
--- NOTE | 2018-12-09 21:03 | DS ---
CC: Dr. Selene Conn; Dr. Raimundo Saenz DISCHARGE SUMMARY: DATE OF ADMISSION: 12/08/18 DATE OF DISCHARGE: 12/10/18 HISTORY: This 88-year-old man presented with weakness. He was admitted here on 11/29/18 for similar symptoms of lightheadedness and weakness. He was thought to have a probable GI bleed. He received 2 units of blood on that admission. He had endoscopy and colonoscopy. The colonoscopy was incomplete with the short section not being well visualized. There was consideration of possibly doing virtual colonoscopy to help visualize that area. Dr. Saenz had been treating the patient with ciprofloxacin and recommended 5 more days following the date of this admission for a total of 14 days treatment. The patient received 1 unit of packed cells in the hospital. His hemoglobin was 8.0. He felt better. His TSH was found to be below normal at 0.11. His liothyronine dose was reduced from 75 mcg to 50 mcg daily. The patient missed dialysis on 12/08/18 but had his dialysis on 12/09/18. He has an appointment to see Dr. Saenz at 11 a.m. on 12/10/18 and should keep that appointment. FINAL DIAGNOSES: 1. Anemia. 2. End-stage renal disease. 3. Atrial fibrillation. 4. Hypothyroidism. DISCHARGE MEDICATIONS: 1. Liothyronine 50 mcg daily. 2. PreserVision 2 capsules daily. 3. Allopurinol 100 mg b.i.d. 4. Amiodarone 200 mg daily. 5. Multivitamin with minerals 1 daily. 6. Simvastatin 20 mg daily. 7. Aspirin 81 mg daily. 9. Calcium polycarbophil 625 mg b.i.d. 10. Multivitamin with mineral 1 daily. 11. [place]-3 fatty acids 1000 mg b.i.d. 12. Polyethylene glycol 17 g daily. 13. Vitamin E 1000 units. 14. Ciprofloxacin 500 mg daily for 4 more days. 15. Dialyvite 1 tablet daily. CONDITION ON DISCHARGE: Improved. DISPOSITION ON DISCHARGE: Discharged home. [id number]/[facility] #: [id number] [facility]
[2018-12-10 08:25] VITALS: BP 158/74
[2018-12-10] MEDS: Calcium Polycarbophil TAB* 625 MG PO SCH (08:32)
[2018-12-10] MEDS: Amiodarone TAB* 200 MG PO SCH (08:32)
[2018-12-10] MEDS: Atorvastatin* 10 MG TAB PO SCH (08:32)
[2018-12-10] MEDS: Liothyronine TAB* 25 MCG PO SCH (08:32)
[2018-12-10] MEDS: Allopurinol TAB* 100 MG PO SCH (08:32)
[2018-12-10] MEDS: Multivitamins/Minerals TAB PO SCH (08:32)
[2018-12-10] MEDS: Aspirin EC TAB* 81 MG TAB.EC PO SCH (08:32)
[2018-12-10] MEDS: Polyethylene Glycol 3350* 17 GM PACKET PO SCH (08:32)
[2018-12-10] MEDS: Ciprofloxacin TAB* 500 MG PO SCH (08:32)
[2018-12-10] MEDS ORDERED: Mupirocin 2% OINT* TUBE TOPICAL SCH (09:00)
== END 2018-12-10 10:16 | disposition home or self-care (01) | DRG 684 ==
LOC: ED 17:07 → MEDTELE 23:37
PROVIDERS: ADMIT Student in an Organized Health Care Education/Training Program; ATTEND Internal Medicine
PROC: 30233N1 Transfusion of Nonautologous Red Blood Cells into Peripheral Vein, Percutaneous Approach (ICD-10-PCS; principal; 2018-12-09)
PROC: 3E1M39Z Irrigation of Peritoneal Cavity using Dialysate, Percutaneous Approach (ICD-10-PCS; 2018-12-09)
DX: N18.6 End stage renal disease (principal); D63.1 Anemia in chronic kidney disease; E03.9 Hypothyroidism, unspecified; I48.0 Paroxysmal atrial fibrillation; K57.90 Diverticulosis of intestine, part unspecified, without perforation or abscess without bleeding; M10.9 Gout, unspecified; G89.29 Other chronic pain; M19.012 Primary osteoarthritis, left shoulder; M19.011 Primary osteoarthritis, right shoulder; Z91.048 Other nonmedicinal substance allergy status; Z82.49 Family history of ischemic heart disease and other diseases of the circulatory system; Z79.82 Long term (current) use of aspirin; Z99.2 Dependence on renal dialysis; Z80.0 Family history of malignant neoplasm of digestive organs; Z86.73 Personal history of transient ischemic attack (TIA), and cerebral infarction without residual deficits; Z85.820 Personal history of malignant melanoma of skin
CPT/HCPCS: 36415; 71045; 80053; 82550; 82553; 83605; 83735; 83880; 84100; 84439; 84443; 84481; 84484; 85025; 85027; 85610; 86140; 86850; 86900; 86901; 86922; 87040; 90945; 93005; 99284; A9270-GY; G0257; G8978-GP-CI; G8979-GP-CI; G8980-GP-CI; P9040

== ENCOUNTER → 2019-03-24 06:51 | Day surgery (SDC) | payer MEDICARE ==
[~2019-03-24 06:51] MED LIST changes: +Bacitracin OINTMENT* 0.5% 0.5 oz TUBE ONE; -Buffered Lidocaine 1% SYR 3ML* 3 ML/SYR SYRINGE INTRADERM ONE; -Buffered Lidocaine 1% SYR 3ML* 3 ML/SYR SYRINGE ONE; +Buffered Lidocaine 1% SYRIN* 1 ML/SYRINGE INTRADERM ONE; -Bupivacaine 0.25% EPI 200,000* 30 ML SDV ONE; +Bupivacaine 0.25% SDV PF* 10 ML VIAL INJ ONE; -Bupivacaine 0.25% SDV* 30 ML ONE; -Bupivacaine 0.5% W/EPI SDV* 30 ML VIAL ONE; -HYDROcodone/ACETAMIN 5-325 MG* 1 TAB PO PRN; +Lactated Ringers 1000 ML Bag* 1,000 ML IV SCH; -Lidocain 1% EPI 1:100,000 * 30 ML MDV ONE; +Lidocaine 2% PF * 5 ML VIAL ONE; +Midazolam* 1 MG/ML 2 ML VIAL (2 MG) ONE; +Naloxone* 0.4 MG/ML 1 ML VIAL IV PRN; +Ondansetron INJ* 2 MG/ML VIAL ONE; +Propofol* 10 MG/ML 20 ML BTL ONE; -ceFAZolin 2 GM PREMIX (*) 2 GM/50 ML BAG IVPB ONE; +ceFOXitin(*) 2 GM in NS 0.9% 100 ML* 100 ML IVPB ONE; +ceFOXitin(*) 2 GM in NS 0.9% 50 ML* 50 ML IVPB ONE
--- NOTE | 2019-03-24 10:59 | OP ---
DATE OF OPERATION: 03/24/19 [facility] DATE OF : 34 ATTENDING SURGEON: Reinier Cabrales M.D. HAND BOX FOLDER: None. PRE-OP DIAGNOSIS: Infected peritoneal dialysis catheter. POST-OP DIAGNOSIS: Infected peritoneal dialysis catheter OPERATIVE PROCEDURE: Removal of infected peritoneal dialysis catheter. INDICATIONS: Infected peritoneal dialysis catheter. Risks include, but not limited to bleeding and infection were explained to the patient, who seemed to understand and agreed to the procedure. All questions were answered. DESCRIPTION OF PROCEDURE: In the operating room in the supine position, the abdomen was prepped and draped in a sterile fashion. A time-out was performed, indicating correct patient and correct procedure. Sedation was given by the anesthesiologist. Preoperative antibiotics had been given. The incision was made after local was applied to the skin and carried down through the subcutaneous tissue over palpable cuff. This was freed up from the surrounding tissue along with the more proximal cuff at the rectus. The catheter was completely removed from the abdominal cavity and skin, and sent for culture. The wound was irrigated. The anterior fascia was closed with 3-0 chromic. EBL was minimal. Hemostasis was intact. The skin was closed with a running 3-0 nylon stitch. Antibiotic ointment and sterile dressing was applied. He tolerated the procedure well. [id number]/[facility] #: [id number] MTDD
[2019-03-24 11:24] VITALS: BP 112/56
== END | disposition home or self-care (01) ==
LOC: OR 06:51
PROVIDERS: ATTEND Surgery
DX: T85.71XA Infection and inflammatory reaction due to peritoneal dialysis catheter, initial encounter (principal); N18.6 End stage renal disease; I12.9 Hypertensive chronic kidney disease with stage 1 through stage 4 chronic kidney disease, or unspecified chronic kidney disease; R01.1 Cardiac murmur, unspecified; Z86.73 Personal history of transient ischemic attack (TIA), and cerebral infarction without residual deficits; E78.5 Hyperlipidemia, unspecified; I48.91 Unspecified atrial fibrillation; Z85.820 Personal history of malignant melanoma of skin
CPT/HCPCS: 87070; 87073; 87076; 87077; 87205; A9270-GY; J0694; J2250; J2405; J2704; J3010; J3490

== ENCOUNTER → 2019-03-26 11:59 | Day surgery (SDC) | payer MEDICARE ==
[~2019-03-26 11:59] MED LIST changes: +Acetaminophen TAB* 325 MG PO PRN; -Bacitracin OINTMENT* 0.5% 0.5 oz TUBE ONE; +Bacitracin OINTMENT* 0.5% 0.5 oz TUBE TOPICAL SCH; -Bupivacaine 0.25% SDV PF* 10 ML VIAL INJ ONE; +Heparin VIAL(*) 5000 UNITS/ML VIAL (FIVE THOUSAND) ONE; -Lactated Ringers 1000 ML Bag* 1,000 ML IV SCH; +Lidocaine 1% INJ* 10 MG/ML 30 ML SDV ONE; +Lidocaine 2% PF * 5 ML VIAL IV SCH; -Lidocaine 2% PF * 5 ML VIAL ONE; -Midazolam* 1 MG/ML 2 ML VIAL (2 MG) ONE; +Midazolam* 1 MG/ML 5 ML VIAL (5 MG) IV SLOW PU SCH; -Midazolam* 1 MG/ML 5 ML VIAL (5 MG) ONE; +NS 0.9% 1000 ML** 1,000 ML IV SCH; -Ondansetron INJ* 2 MG/ML VIAL IV PRN; +Ondansetron INJ* 2 MG/ML VIAL IV SCH; -Ondansetron INJ* 2 MG/ML VIAL ONE; +Propofol* 10 MG/ML 20 ML BTL IV SCH; -Propofol* 10 MG/ML 20 ML BTL ONE; +ceFAZolin 2 GM PREMIX in ORs 2 GM/50 ML BAG ONE; +ceFAZolin VIAL(*) VIAL ONE; -ceFOXitin(*) 2 GM in NS 0.9% 100 ML* 100 ML IVPB ONE; -ceFOXitin(*) 2 GM in NS 0.9% 50 ML* 50 ML IVPB ONE; -fentaNYL* 50 MCG/ML 2 ML VIAL (100 MCG VIAL) IV PRN; +fentaNYL* 50 MCG/ML 2 ML VIAL (100 MCG VIAL) IV SCH; -fentaNYL* 50 MCG/ML 2 ML VIAL (100 MCG VIAL) ONE
[2019-03-26 15:42] VITALS: BP 128/66
--- NOTE | 2019-03-26 17:39 | OP ---
DATE OF OPERATION: 03/26/19 - [facility] DATE OF : 34 SURGEON: Reinier Cabrales MD EMERGENCY MEDCL EMT: No floral assistant. PRE-OP DIAGNOSIS: Renal failure. POST-OP DIAGNOSIS: Renal failure. OPERATIVE PROCEDURE: Placement of tunneled hemodialysis catheter. INDICATIONS FOR PROCEDURE: Requiring catheter for hemodialysis for renal failure. Risks included but not limited to bleeding, infection, pneumothorax, injury to heart or vascular structures explained to the patient. He seemed understanding, agreed to the procedure. All questions were answered. DESCRIPTION OF PROCEDURE: The patient was taken to the operating room, placed supine, preoperative antibiotics were given. Sedation was given by the anesthesiologist. The right neck was prepped and draped in sterile fashion and a roll was placed under the shoulders. Prior to this, the head was gently extended and tilted towards the left exposing the right internal jugular vein/ neck/upper chest which was prepped and draped in sterile fashion. Time-out was performed, indicating correct patient, correct procedure. The skin was anesthetized with plain lidocaine over the sternocleido-mastoid muscle region on the right neck and an ultrasound was used to identify the internal jugular vain. A needle was placed into the vein and then a wire was passed through this using Seldinger technique. Ultrasound and then fluoroscopy showed the wire in the superior vena cava. The catheter was then tunneled from small incision made below the right clavicle under the skin up to the wire entrance site. An 11 blade made this puncture site larger to allow the catheter to come through. The tract was dilated sequentially over the wire and a split sheath was then placed over the wire. The wire was removed. The catheter was placed through the split sheath and followed under fluoroscopy down towards the superior vena cava. The split sheath was completely removed. The catheter was then pulled back, the tip was in position and the cuff was about 2 cm from the right chest entry site. It easily flushed and aspirated with heparinized saline. Good blood return was noted. The patient was taken out of Trendelenburg position. The skin was closed with 4-0 Monocryl in the neck. Antibiotic ointment was applied to the entry site. The catheter was sutured to skin of the anterior chest using 3-0 nylon. Sterile dressing was applied. He tolerated the procedure well. He was taken to recovery in stable condition where a chest x- ray will be ordered. [id number]/[facility] #: [id number] REA
== END | disposition home or self-care (01) ==
LOC: OR 11:59
PROVIDERS: ATTEND Surgery
DX: I12.0 Hypertensive chronic kidney disease with stage 5 chronic kidney disease or end stage renal disease (principal); N18.6 End stage renal disease; R01.1 Cardiac murmur, unspecified; E78.5 Hyperlipidemia, unspecified; I48.91 Unspecified atrial fibrillation; M10.9 Gout, unspecified; K21.9 Gastro-esophageal reflux disease without esophagitis; Z86.73 Personal history of transient ischemic attack (TIA), and cerebral infarction without residual deficits
CPT/HCPCS: 71045; 76000; A9270-GY; C1750; J0690; J1642; J1644; J2250; J2405; J2704; J3010

== ENCOUNTER 2019-04-08 18:02 | Inpatient (IN) | payer MEDICARE ==
[2019-04-08 18:49] LABS: ABS Basophils 0.1 10^3/ul (0-0.2); ABS Eosinophils 0.1 10^3/ul (0-0.6); ABS Lymphocytes 0.6 10^3/ul (1.0-4.8); ABS Monocytes 0.8 10^3/ul (0-0.8); ABS Neutrophils 3.6 10^3/ul (1.5-7.7); Eosinophil % 1.9 %; Hematocrit 26 % (42-52); Hemoglobin 8.6 g/dL (14.0-18.0); INR 1.08 (0.82-1.09); Lymphocyte % 12.1 %; Mean Corpuscular HGB Conc 33 g/dL (31-36); Mean Corpuscular Hemoglobin 35 pg (27-31); Mean Corpuscular Volume 106 fL (80-94); Mean Platelet Volume 8.6 fL (7.4-10.4); Platelet Count 126 10^3/uL (150-450); Red Blood Count 2.44 10^6 /uL (4.18-5.48); Red Cell Distribution Width 18 % (10-15); White Blood Count 5.2 10^3/uL (3.5-10.8)
[2019-04-08 19:06] LABS: Troponin I 0.06 ng/mL (<0.04)
[2019-04-08 19:13] LABS: ALT 22 U/L (7-52); AST 26 U/L (13-39); Albumin 3.5 g/dL (3.2-5.2); Albumin/Globulin Ratio 1.3 (1-3); Alkaline Phosphatase 53 U/L (34-104); Anion Gap 6 mmol/L (2-11); BUN/Creatinine Ratio 7.3 (8-20); Blood Urea Nitrogen 43 mg/dL (6-24); CO2 Carbon Dioxide 34 mmol/L (22-32); Calcium 9.3 mg/dL (8.6-10.3); Chloride 99 mmol/L (101-111); EGFR African American 11.1 (>60); EGFR Non-African American 9.1 (>60); Globulin 2.8 g/dL (2-4); Glucose 178 mg/dL (70-100); Potassium 4.1 mmol/L (3.5-5.0); Sodium 139 mmol/L (135-145); Total Protein 6.3 g/dL (6.4-8.9)
[2019-04-08 20:28] LABS: TSH (Thyroid Stimulating Horm) 0.12 mcIU/mL (0.34-5.60)
[2019-04-08 21:50] LABS: Troponin I 0.07 ng/mL (<0.04)
--- NOTE | 2019-04-08 22:45 | ED ---
Shortness of Breath - HPI Summary HPI Summary: This patient is a 88 year old M presenting [place] [facility] [place] by with a chief complaint of SOB since 1709. Patient states that he was out for a walk with his walker going towards his car when he felt like his legs were giving out. Patient states that he was SOB and felt like he was going to collapse. As a result he was brought to the ED. Patient is on dialysis on MWF for ESRD. The patient rates the pain 0/10 in severity. Symptoms aggravated by nothing. Symptoms alleviated by nothing. Patient reports SOB. Patient denies fever, vomiting and diarrhea. Patient has a PMHx of Afib. Patient reports rare EtOH use. Patient denies substance abuse and tobacco use. Allergies Allergy/AdvReac Type Severity Reaction Status Date / Time Adhesive Tape Allergy Skin Verified 03/26/19 12:28 irritation Home Medications Medication Instructions Recorded Confirmed Type Allopurinol TAB* [Zyloprim 100 MG 100 mg PO BID 07/25/18 04/08/19 History TAB*] Aspirin EC TAB* [Ecotrin EC Low 81 mg PO QAM 11/29/18 04/08/19 History Dose 81 MG*] [place]-3 Fatty Acids (Nf) [Fish Oil 1,000 mg PO BID 11/29/18 04/08/19 History (NF)] Polyethylene Glycol 3350* 17 gm PO QAM 11/29/18 04/08/19 History [Miralax*] Simvastatin TAB(NF) [Zocor 20 MG 20 mg PO DAILY 11/29/18 04/08/19 History (NF)] Vitamin E Mixed [Vitamin E] 1,000 unit PO 1200 11/29/18 04/08/19 History Vit B Complx C/Folic Acid/Zinc 1 tab PO QAM 12/08/18 04/08/19 History [Dialyvite 800-Zinc 50 mg Tab] Amiodarone TAB* [Cordarone TAB*] 200 mg PO QAM 12/17/18 04/08/19 History Calcium Polycarbophil TAB* 1,250 mg PO TID 12/17/18 04/08/19 History [Fibercon TAB*] Vit C/E/Zn/Coppr/Lutein/Zeaxan 2 cap PO BID 12/17/18 04/08/19 History [Preservision Areds 2 Softgel] Auryxia 210mg Tablet 630 mg PO TID WITH MEALS 03/21/19 04/08/19 History Metoprolol Succinate XL TAB* 25 mg PO QAM 03/21/19 04/08/19 History [Toprol XL TAB*] Liothyronine TAB* [Cytomel TAB*] 25 mcg PO QAM 04/08/19 04/08/19 History Liothyronine TAB* [Cytomel TAB*] 50 mcg PO QAM 04/08/19 04/08/19 History - History of Current Complaint Chief Complaint: EDShortnessOfBreath Time Seen by Provider: 04/08/19 19:02 Hx Obtained From: Patient Onset/Duration: Sudden Onset - 1710, Resolved Dyspnea At: Exertion Aggravating Factors: Nothing Alleviating Factors: Nothing - Allergy/Home Medications Allergies/Adverse Reactions: Allergies Allergy/AdvReac Type Severity Reaction Status Date / Time Adhesive Tape Allergy Skin Verified 03/26/19 12:28 irritation Home Medications: Home Medications Liothyronine TAB* [Cytomel TAB*] 25 mcg PO QAM 04/08/19 [History Confirmed 04/08] Liothyronine TAB* [Cytomel TAB*] 50 mcg PO QAM 04/08/19 [History Confirmed 04/08] PMH/Surg Hx/FS Hx/Imm Hx Endocrine/Hematology History: Reports: Hx Anemia - low h/h, pt has appointment wednesday 03/28-to get results of bone biopsy Denies: Hx Bone Marrow Disease, Hx Diabetes, Hx Sickle Cell Disease, Hx Thyroid Disease Cardiovascular History: Reports: Hx Hypercholesterolemia, Hx Hypertension - on medication for, Other Cardiovascular Problems/Disorders - hx of a-fib- on medication for Denies: Hx Angina, Hx Cardiomegaly, Hx Congestive Heart Failure, Hx Coronary Artery Disease, Hx Pacemaker/ICD, Hx Peripheral Vascular Disease, Hx Rheumatic Fever, Hx Valvular Heart Disease Respiratory History: Reports: Hx Sleep Apnea Denies: Hx Asthma, Hx Chronic Obstructive Pulmonary Disease (COPD), Hx Pulmonary Edema, Hx Pulmonary Embolism, Other Respiratory Problems/Disorders GI History: Reports: Other GI Disorders - pt takes medication for constipation Denies: Hx Cirrhosis, Hx Crohn's Disease, Hx Gastroesophageal Reflux Disease , Hx Hiatal Hernia, Hx Irritable Bowel, Hx Jaundice, Hx Ulcer History: Reports: Hx Kidney Stones - at 22 years old, Hx Renal Disease - STAGE 5 Denies: Hx Kidney Infection, Other Problems/Disorders Musculoskeletal History: Reports: Other Musculoskeletal History - gout--on medication for, and lower back pain Denies: Hx Arthritis, Hx Bursitis, Hx Tendonitis Sensory History: Reports: Hx Contacts or Glasses - glasses, Hx Hearing Aid - both ears, Hx Hearing Problem Denies: Hx Glaucoma Comment Only: Hx Cataracts - bilateral cataract surgery Opthamlomology History: Reports: Hx Contacts or Glasses - glasses Denies: Hx Glaucoma Comment Only: Hx Cataracts - bilateral cataract surgery Neurological History: Reports: Other Neuro Impairments/Disorders - 1989 TIA Denies: Hx Headaches, Hx Migraine, Hx Nerve Disease, Hx Seizures Psychiatric History: Denies: Hx Anxiety, Hx Depression - Cancer History Cancer Type, Location and Year: basal cell carcinoma, melanoma Hx Chemotherapy: No - Surgical History Surgery Procedure, Year, and Place: TONSILLECTOMY-childhood. 1954 TUR - [facility]. BILATERAL INGUINAL HERNIA SURG X 3 1949'S AND 1965- [facility]. CARPAL TUNNEL RIGHT. 11/27 left ARM MELANOMA- DR BRYANT [facility]. 2016- melanoma removed from back. OTHER MELANOMA SKIN MARK + BASAL CELL. cataract surgery with lens implants - [facility] - 2007. RETROPERITONEAL CATHETER FOR DIALYSIS Hx Anesthesia Reactions: No Infectious Disease History: No Infectious Disease History: Denies: Hx Clostridium Difficile, Hx Hepatitis, Hx Human Immunodeficiency Virus (HIV), Hx of Known/Suspected MRSA, Hx Shingles, Hx Tuberculosis, Traveled Outside the in Last 30 Days - Family History Known Family History: Positive: Other - Patient denies relevant FHx Negative: Blood Disorder - Social History Alcohol Use: None Alcohol Amount: 1-2 DRINKS/WEEK Substance Use Type: Reports: None Hx Tobacco Use: No Smoking Status (MU): Never Smoked Tobacco Have You Smoked in the Last Year: No Review of Systems Negative: Fever Positive: Shortness Of Breath Negative: Vomiting, Diarrhea All Other Systems Reviewed And Are Negative: Yes Physical Exam - Summary Physical Exam Summary: Constitutional: Well-developed, Well-nourished, Alert. (-) Distressed Skin: Warm, Dry HENT: Normocephalic; Atraumatic Eyes: Conjunctiva normal Neck: Musculoskeletal ROM normal neck. (-) JVD, (-) Stridor, (-) Tracheal deviation Cardio: Rhythm regular, rate normal, Heart sounds normal; Intact distal pulses; . Radial pulses are 2+ and symmetric. (-) Murmur Pulmonary/Chest wall: Effort normal. (-) Respiratory distress, (-) Wheezes, (-) Rales, Crackles bilaterally in the bases of lungs Abd: Soft, (-) tenderness, (-) Distension, (-) Guarding, (-) Rebound Musculoskeletal: 1+ bilateral lower edema Lymph: (-) Cervical adenopathy Neuro: Alert, Oriented x3 Psych: Mood and affect Normal Triage Information Reviewed: Yes Vital Signs On Initial Exam: Initial Vitals Temp Pulse Resp BP Pulse Ox 97.8 F 60 20 162/72 94 04/08/19 18:10 04/08/19 18:10 04/08/19 18:10 04/08/19 18:10 04/08/19 18:10 Vital Signs Reviewed: Yes Diagnostics - Vital Signs Vital Signs Temp Pulse Resp BP Pulse Ox 04/08/19 21:21 62 29 165/81 91 04/08/19 21:00 60 22 92 04/08/19 20:51 59 28 174/80 95 04/08/19 20:21 58 23 162/80 88 04/08/19 20:15 98 F 04/08/19 20:00 57 27 94 04/08/19 19:51 57 28 160/74 95 04/08/19 19:21 58 25 166/78 94 04/08/19 19:00 57 19 94 04/08/19 18:51 58 21 144/74 93 04/08/19 18:50 58 22 93 04/08/19 18:10 97.8 F 60 20 162/72 94 - Laboratory Lab Results: Lab Results 04/08/19 04/08/19 04/08/19 Range/Units 18:25 18:25 18:25 WBC 5.2 (3.5-10.8) 10^3/uL RBC 2.44 L (4.18-5.48) 10^6 /uL Hgb 8.6 L (14.0-18.0) g/dL Hct 26 L (42-52) % MCV 106 H (80-94) fL MCH 35 H (27-31) pg MCHC 33 (31-36) g/dL RDW 18 H (10-15) % Plt Count 126 L (150-450) 10^3/uL MPV 8.6 (7.4-10.4) fL Neut % (Auto) 69.6 % Lymph % (Auto) 12.1 % [place] % (Auto) 15.4 % Eos % (Auto) 1.9 % Baso % (Auto) 1.0 % Absolute Neuts (auto) 3.6 (1.5-7.7) 10^3/ul Absolute Lymphs (auto) 0.6 L (1.0-4.8) 10^3/ul Absolute Monos (auto) 0.8 (0-0.8) 10^3/ul Absolute Eos (auto) 0.1 (0-0.6) 10^3/ul Absolute Basos (auto) 0.1 (0-0.2) 10^3/ul Absolute Nucleated RBC 0.0 10^3/ul Nucleated RBC % 0.0 INR (Anticoag Therapy) 1.08 (0.82-1.09) Sodium 139 (135-145) mmol/L Potassium 4.1 (3.5-5.0) mmol/L Chloride 99 L (101-111) mmol/L Carbon Dioxide 34 H (22-32) mmol/L Anion Gap 6 (2-11) mmol/L BUN 43 H (6-24) mg/dL Creatinine 5.90 H (0.67-1.17) mg/dL Est GFR ( Amer) 11.1 (>60) Est GFR (Non-Af Amer) 9.1 (>60) BUN/Creatinine Ratio 7.3 L (8-20) Glucose 178 H (70-100) mg/dL Calcium 9.3 (8.6-10.3) mg/dL Total Bilirubin 0.30 (0.2-1.0) mg/dL AST 26 (13-39) U/L ALT 22 (7-52) U/L Alkaline Phosphatase 53 (34-104) U/L Troponin I 0.06 H* (<0.04) ng/mL B-Natriuretic Peptide (<=100) pg/mL Total Protein 6.3 L (6.4-8.9) g/dL Albumin 3.5 (3.2-5.2) g/dL Globulin 2.8 (2-4) g/dL Albumin/Globulin Ratio 1.3 (1-3) TSH 0.12 L (0.34-5.60) mcIU/mL Free T4 0.30 L (0.61-1.12) ng/dL 04/08/19 04/08/19 Range/Units 18:25 21:22 WBC (3.5-10.8) 10^3/uL RBC (4.18-5.48) 10^6 /uL Hgb (14.0-18.0) g/dL Hct (42-52) % MCV (80-94) fL MCH (27-31) pg MCHC (31-36) g/dL RDW (10-15) % Plt Count (150-450) 10^3/uL MPV (7.4-10.4) fL Neut % (Auto) % Lymph % (Auto) % [place] % (Auto) % Eos % (Auto) % Baso % (Auto) % Absolute Neuts (auto) (1.5-7.7) 10^3/ul Absolute Lymphs (auto) (1.0-4.8) 10^3/ul Absolute Monos (auto) (0-0.8) 10^3/ul Absolute Eos (auto) (0-0.6) 10^3/ul Absolute Basos (auto) (0-0.2) 10^3/ul Absolute Nucleated RBC 10^3/ul Nucleated RBC % INR (Anticoag Therapy) (0.82-1.09) Sodium (135-145) mmol/L Potassium (3.5-5.0) mmol/L Chloride (101-111) mmol/L Carbon Dioxide (22-32) mmol/L Anion Gap (2-11) mmol/L BUN (6-24) mg/dL Creatinine (0.67-1.17) mg/dL Est GFR ( Amer) (>60) Est GFR (Non-Af Amer) (>60) BUN/Creatinine Ratio (8-20) Glucose (70-100) mg/dL Calcium (8.6-10.3) mg/dL Total Bilirubin (0.2-1.0) mg/dL AST (13-39) U/L ALT (7-52) U/L Alkaline Phosphatase (34-104) U/L Troponin I 0.07 H* (<0.04) ng/mL B-Natriuretic Peptide > 1300 H (<=100) pg/mL Total Protein (6.4-8.9) g/dL Albumin (3.2-5.2) g/dL Globulin (2-4) g/dL Albumin/Globulin Ratio (1-3) TSH (0.34-5.60) mcIU/mL Free T4 (0.61-1.12) ng/dL Result Diagrams: 04/10/19 05:40 04/10/19 05:40 Lab Statement: Any lab studies that have been ordered have been reviewed, and results considered in the medical decision making process. - Radiology Chest Xray Radiology Interpretation Completed By: ED Physician Summary of Radiographic Findings: CHest Xray reveals, per ED Physician, Chest x ray bilateral pulmonary edema with interstitial infiltrate consistent with fluid over load xray is slightly worse compared to Xray taken on 03/26/19. Course/Dx - Course Course Of Treatment: Patient is here with exertional shortness of breath. Patient is medically complex slipping on dialysis. Patient had laboratory performed which showed hypothyroidism, worsening pulmonary edema, elevated troponin. Given patient's multiple abnormalities, which could be treated to his dialysis, patient needed to be admitted for overnight observation and further trending. - Diagnoses Provider Diagnoses: Fluid overload, ESRD (end stage renal disease), Hypothyroid, Elevated troponin , SOB (shortness of breath) - Physician Notifications Discussed Care of Patient With: No Obrien - Hospitalist Time Discussed With Above Provider: 21:21 Instructed by Provider To: Other - Dr. Obrien accepts patient for admission Discharge ED - Sign-Out/Discharge Documenting (check all that apply): Patient Departure Patient Received Moderate/Deep Sedation with Procedure: No - Discharge Plan Condition: Stable Disposition: ADMITTED TO [facility] - Billing Disposition and Condition Condition: STABLE Disposition: Admitted to [facility] - Attestation Statements Document Initiated by Scribe: Yes Documenting Scribe: Lidia Guzmán Provider For Whom Cristina is Documenting (Include Credential): Dr. Som Bergman MD Scribe Attestation: Lidia Cash scribed for Dr. Som Bergman MD on 04/11/19 at 0746. Scribe Documentation Reviewed: Yes Provider Attestation: The documentation as recorded by the Lidia meza accurately reflects the service I personally performed and the decisions made by me, Dr. Som Bergman MD Status of Scribe Document: Viewed
--- NOTE | 2019-04-09 00:59 | HP ---
CC: Dr. Selene Conn; Dr. Rey Adair * HISTORY AND PHYSICAL: DATE OF ADMISSION: 04/08/19 PRIMARY CARE PROVIDER: Dr. Selene Conn VICE PRESIDENT OF SOFTWARE ENGINEERING: Dr. Rey Adair CHIEF COMPLAINT: Shortness of breath. HISTORY OF PRESENT ILLNESS: Mr. Shen is an 88-year-old male who has a history of end-stage renal disease, who was recently transitioned from peritoneal dialysis to hemodialysis approximately 2 weeks ago, who presented to the emergency room with complaints of severe shortness of breath. The patient states that he had been in his usual state of health, walking from he house to his car in the driveway when he suddenly felt very short of breath. He felt as if he needed to turn around to go back to the house. He also describes having severe pain radiating across his upper back to both shoulders and up into his neck. He frequently will have pain with ambulation in his neck. His believes that this is secondary to his posture. He tells me that this is much worse today than it has been. The patient last received dialysis this past Sunday. He states that there has been no change in diet other than eating out this past . His dry weight is around 180 pounds. Reportedly when he left dialysis on Sunday, his weight was 85.5 kg, which is in fact up from his dry weight by about 8 pounds. The patient has had bilateral lower extremity edema over the last couple weeks. When he was doing his peritoneal dialysis nightly, he had no lower extremity edema. His noticed that the edema worsens by the time he is due for his next hemodialysis treatment. Additionally , when the patient was symptomatic while walking up to his car, the patient was noted to clammy. His did not take him back into the house, but got him sitting down in the car. While he was getting in the car, he noted spasms in his legs. Of note on the evening prior to admission, the patient identified the fact that he was in atrial fibrillation. He will have intermittent episodes that resolve on their own. It was last evening this was identified and by morning time, he had converted back to sinus rhythm. He does not know how fast he was going. The patient just ambulated from his room to the bathroom, had a large bowel movement and ambulated back and stated that his breathing felt generally much improved from earlier today, but he was still short of breath more so than normal. PAST MEDICAL HISTORY: 1. Paroxysmal atrial fibrillation. 2. End-stage renal disease. 3. Hypertension. 4. Gout. 5. History of TIA. 6. Melanoma excision x2. 7. Osteoarthritis. 8. JOEL. PAST SURGICAL HISTORY: 1. Bilateral cataract extractions. 2. Tonsillectomy. 3. Peritoneal dialysis catheter insertion and subsequent removal. 4. Carpal tunnel release on the right. 5. Hernia repairs x3. 6. Tunneled hemodialysis catheter insertion. MEDICATIONS: 1. PreserVision AREDS 2 one cap p.o. b.i.d. 2. FiberCon 2 tabs p.o. t.i.d. with meals. 3. Auryxia 210 mg tablets 2 tabs p.o. t.i.d. with meals. 4. Metoprolol XL 12.5 mg p.o. daily. 5. Vitamin E 1000 units p.o. daily. 6. Dialyvite 1 tab p.o. daily. 7. MiraLAX 17 g p.o. daily. 8. [place]-3 fatty acid 1000 mg p.o. b.i.d. 9. Aspirin 81 mg p.o. daily. 10. Allopurinol 100 mg p.o. b.i.d. 11. Cytomel 75 mcg p.o. daily. 12. Simvastatin 20 mg p.o. daily. 13. Amiodarone 200 mg p.o. daily. ALLERGIES: ADHESIVE TAPE. FAMILY HISTORY: Mom at the age of 102 of old age. She had hypertension. Dad at the age of 43 of colon cancer. SOCIAL HISTORY: The patient is a lifelong nonsmoker. He drinks alcohol very rarely. 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 He is . He has 4 children. His is his healthcare proxy. REVIEW OF SYSTEMS: A complete 11-system review of systems was obtained. Pertinent positives and negatives are as per HPI and otherwise negative. PHYSICAL EXAMINATION GENERAL: The patient is a well-developed elderly male, seen sitting up in the stretcher in no acute distress. VITAL SIGNS: Blood pressure 165/81, pulse 61, respirations 29, temp 98. O2 sat 91% on room air. HEENT: Pupils are equal and round . There is evidence of prior cataract extractions. Extraocular muscles are intact. Oropharynx is clear. Oral mucosa is moist. There is no submandibular, cervical, or supraclavicular adenopathy. PULMONARY: There are bibasilar crackles, otherwise, the lungs are clear. CARDIAC: Normal S1, S2. Regular rate and rhythm. There is a 2/6 systolic murmur heard best at the left upper sternal border. There is 1 to 2+ bilateral lower extremity pitting edema with the right being worse than the left. ABDOMEN: Bowel sounds are present. Abdomen is soft, nontender, nondistended. There is a well-healing incision to the left lower quadrant at the site of the PD catheter removal. MUSCULOSKELETAL: There is no cyanosis or clubbing of the digits. There is full active range of motion of all 4 extremities. NEUROLOGIC: Cranial nerves II through XII are grossly intact. Sensation is intact to light touch throughout. Strength is 5/5 and symmetric in both upper and lower extremities bilaterally. PSYCH: The patient is alert. He is oriented x3. Affect appears appropriate. SKIN: Warm and dry. There are no rashes. DIAGNOSTIC STUDIES/LAB DATA: WBC 5.2, hemoglobin 8.6, hematocrit 26, platelets 126. INR 1.08. Sodium 139, potassium 4.1, chloride 99, CO2 34, BUN 43, creatinine 5.90, glucose 178, calcium 9.3, bilirubin 0.3, AST 26, ALT 22, alk phos 53. Troponin 0.06 up to 0.07. BNP greater than 1300. Albumin 3.5. TSH 0.12. Free T4 0.30. EKG reveals normal sinus rhythm without any acute ST-T wave abnormalities. Chest x-ray to my interpretation revealed possible vascular congestion. ASSESSMENT AND PLAN: Mr. Shen is an 88-year-old male with a history of end- stage renal disease, paroxysmal atrial fibrillation, hypertension, and obstructive sleep apnea who presented to the emergency room with complaint of severe shortness of breath. 1. Dyspnea on exertion. My suspicion is the patient's dyspnea with exertion today is related to fluid overload. It sounds as if he did not get back down to his dry weight with his last dialysis treatment. He is due for dialysis tomorrow. He has crackles on exam as well as bilateral lower extremity pitting edema. At this point, the patient is not in extremis. I feel that we can wait until tomorrow for him to receive dialysis on his usually scheduled day. He was already feeling better in the emergency room. I am however concerned about the discomfort the patient felt across his upper back and shoulders. Perhaps this was an anginal equivalent. His troponin is mildly elevated at 0.06. This is in fact better than it typically is. I suspect the elevated troponin is related to his history of end- stage renal disease. I will get a followup troponin at 12:30 a.m. on 04/09/19. As of now, I will not obtain a stress test as I think it is low likelihood that the discomfort was anginal. I think it is more likely related to his posture with ambulation which has been a chronic problem for him. 2. Hypothyroidism. The patient's TSH is low at 0.12, however, his free T4 is also low. I am not going to change his Cytomel dosing for now. He should follow up with the prescriber of this medication for potential dose changes. 3. Paroxysmal atrial fibrillation. The patient will be monitored on telemetry. It sounds as if he was briefly in atrial fibrillation last evening; however, the rate was unknown. I do question if the atrial fibrillation may have led to some increased pulmonary edema compared to what he ordinarily would have had. We will monitor on telemetry. He will continue on his metoprolol XL and amiodarone. 4. End-stage renal disease. The patient will receive dialysis tomorrow. 5. Hypertension. BP is moderately elevated at this time. I am going to continue his usual home medication regimen of metoprolol XL 12.5 mg p.o. daily. If his pressures are still high tomorrow perhaps an adjustment would be required. 6. Gout. Continue allopurinol. 7. Obstructive sleep apnea. CPAP has been ordered. 8. DVT prophylaxis. According to the Adult Thrombosis Prophylaxis Risk Factor Assessment Guide, the patient has a total risk factor score of 7, making him the highest risk. He will be started on subcutaneous heparin. 9. Code status is full. TIME SPENT: Sixty-five minutes was spent admitting this patient. [id number]/CPS #: [id number] REA
[2019-04-09 02:27] LABS: Troponin I 0.07 ng/mL (<0.04)
[2019-04-09] MEDS: Liothyronine TAB* 25 MCG PO SCH (06:11)
[2019-04-09] MEDS: Heparin VIAL(*) 5000 UNITS/ML VIAL (FIVE THOUSAND) SUBCUT SCH ×3 (06:11→21:27)
[2019-04-09] MEDS: Calcium Polycarbophil TAB* 625 MG PO SCH ×3 (08:52→19:09)
[2019-04-09] MEDS: Aspirin EC TAB* 81 MG TAB.EC PO SCH (08:53)
[2019-04-09] MEDS: Atorvastatin* 10 MG TAB PO SCH (08:53)
[2019-04-09] MEDS: Metoprolol Succinate XL TAB* 25 MG PO SCH (08:53)
[2019-04-09] MEDS: Amiodarone TAB* 200 MG PO SCH (08:53)
[2019-04-09] MEDS: Allopurinol TAB* 100 MG PO SCH ×2 (08:54→21:27)
[2019-04-09] MEDS ORDERED: Liothyronine TAB* 25 MCG PO SCH (09:00)
[2019-04-09] MEDS: Polyethylene Glycol 3350* 17 GM PACKET PO SCH (09:01)
[2019-04-09] MEDS: NFT: Multivitamins/Mins (NF) AREDS2 1 CAP CAP PO SCH ×2 (09:02→21:29)
[2019-04-09] MEDS: CMCS: OMEGA-3 FATTY ACIDS (NF) 1,000 MG CAP PO SCH ×2 (09:03→21:30)
[2019-04-09] MEDS: DIALYVITE ZINC PO SCH (09:03)
[2019-04-09] MEDS: FERRIC CITRATE 210 MG PO SCH ×3 (09:04→20:06)
[2019-04-09 12:19] LABS: BUN/Creatinine Ratio 7.7 (8-20); Calcium 9.5 mg/dL (8.6-10.3); EGFR African American 8.9 (>60); EGFR Non-African American 7.4 (>60)
[2019-04-09 12:55] LABS: ABS Lymphocytes 0.5 10^3/ul (1.0-4.8); ABS Monocytes 0.8 10^3/ul (0-0.8); Eosinophil % 0.5 %; Hematocrit 26 % (42-52); Hemoglobin 8.5 g/dL (14.0-18.0); Lymphocyte % 7.3 %; Mean Corpuscular HGB Conc 33 g/dL (31-36); Mean Corpuscular Hemoglobin 35 pg (27-31); Mean Corpuscular Volume 106 fL (80-94); Mean Platelet Volume 9.2 fL (7.4-10.4); Platelet Count 126 10^3/uL (150-450); Red Blood Count 2.45 10^6 /uL (4.18-5.48); Red Cell Distribution Width 18 % (10-15); White Blood Count 6.4 10^3/uL (3.5-10.8)
--- NOTE | 2019-04-09 14:47 | ECHO ---
*[facility]* [place] [address] Fax #: [phone] Transthoracic Echocardiogram Patient: David Shen : 1930 Study Date: 04/09/2019 Age: 88 Gender: M HR: 65 bpm Height: 67 in /170.2 cm BSA: 1.97 m^2 Weight: 188.6 lb /85.7 kg BMI: 29.6 kg/m^2 *Cane Stripper: * Cee Turner [facility] *Referring Physician: * Annia Lucero *Reading Physician: * Kiya Rodriguez MD Indications: SOB. History: ESRD. Atrial fibrillation. Transient ischemic attack. Risk factors: Hypertension. Conclusions Summary: - Left ventricle: The cavity size is mildly to moderately dilated. Wall thickness is mildly to moderately increased. Systolic function is normal. The estimated ejection fraction is 55-60%. Doppler parameters are consistent with elevated ventricular end-diastolic filling pressure. - Right ventricle: Systolic function is normal. - Mitral valve: The Mitral valve annulus appears moderately calcified. The leaflets are mildly thickened. The findings are consistent with mild stenosis. There is mild regurgitation. The pressure half-time is 125 ms. - Aortic valve: The findings are consistent with mild stenosis. There is mild to moderate regurgitation. The mean systolic gradient is 11.0 mm Hg. The LVOT to aortic valve VTI ratio is 0.6. The valve area by the velocity-time integral method is 1.80 cm^2. The valve area by the peak velocity method is 2.00 cm^2. The regurgitation pressure half-time is 464 ms. - Tricuspid valve: There is mild-moderate regurgitation. - Aorta: The ascending aorta internal dimension in the A-P direction, maximal systolic dimension is 3.8 cm. - Ascending aorta: The ascending aorta is mildly dilated. - Pulmonary arteries: Systolic pressure is severely increased. The peak pressure during systole by Doppler is 74.0 mm Hg. - Compared with prior echocardiogram of 12/02/18, ejection fraction is stable, AI is stable, tricuspid regurgitation stable, pulmonary artery pressure has increased further. Ascending aorta diameter not significantly changed. Study data: Transthoracic echocardiogram. Procedure: Transthoracic echocardiography was performed. Image quality was good. Complete 2D, spectral Doppler, and color flow Doppler. Location: Bedside. Patient status: Inpatient. Patient room number: 444 02. Rhythm: Normal sinus rhythm. Findings Left ventricle: The cavity size is mildly to moderately dilated. Wall thickness is mildly to moderately increased. Systolic function is normal. The estimated ejection fraction is 55-60%. Wall motion is normal; there are no regional wall motion abnormalities. Doppler parameters are abnormal. Doppler parameters are consistent with elevated ventricular end-diastolic filling pressure. Right ventricle: The cavity size is normal. Systolic function is normal. Left atrium: The atrium is severely dilated. Right atrium: The atrium is moderately dilated. Mitral valve: The Mitral valve annulus appears moderately calcified. The leaflets are mildly thickened. The findings are consistent with mild stenosis. There is mild regurgitation. Aortic valve: The annulus is mildly calcified. The valve is trileaflet. The leaflets are mildly thickened. Nodule noted on NCC. The findings are consistent with mild stenosis. There is mild to moderate regurgitation. Tricuspid valve: The leaflets are normal thickness. There is no evidence of stenosis. There is mild-moderate regurgitation. Pulmonic valve: The leaflets are normal thickness. There is no evidence of stenosis. There is mild regurgitation. Aorta: Aortic root: The aortic root is appears normal. Ascending aorta: The ascending aorta is mildly dilated. Aortic arch: The aortic arch is appears normal. Pericardium: There is no significant pericardial effusion. Pulmonary arteries: Not well visualized. Systolic pressure is severely increased. Systemic veins: Inferior vena cava: The vessel is dilated. There is (< 50%) respiratory change in the IVC dimension. Measurements Left ventricle Value Ref Aortic valve continued Value Ref VANESSA, LAX (H) 6.1 cm 4.2 - 5.8 AR peak v 3.55 m/sec ----- ESD, LAX (H) 4.4 cm 2.5 - 4.0 AR PHT 464 ms ----- FS, LAX 28 % 25 - 43 AR peak grad 50 mm Hg ----- PW, ED, LAX (H) 1.3 cm 0.6 - 1.0 E', lat marycruz, TDI (L) 7.7 cm/sec >=10.0 Mitral valve Value R ef E/e', lat marycruz, 18 Peak E 1.38 m/sec ---- - TDI Peak A 1.46 m/sec ----- E', med marycruz, TDI (L) 4.3 cm/sec >=7.0 Decel time 269 ms - ---- E/e', med mayrcruz, 32 PHT 125 ms ---- - TDI Mean grad, D 4.0 mm Hg ----- E', avg, TDI 6.0 cm/sec Peak grad, D 9.0 mm Hg ---- - E/e', avg, TDI (H) 23 <=14 Peak E/A ratio 0.9 - ---- MVA 1.6 cm^2 ----- LVOT Value Ref MVA, PHT 1.8 cm^2 ----- Diam, S 2.00 cm Area 3.1 cm^2 Pulmonic valve Value Ref Peak crispin, S 1.51 m/sec Peak v, S 0.75 m/sec ----- VTI, S 29.0 cm Peak grad, S 2.0 mm Hg ----- Peak grad, S 9 mm Hg Mean grad, S 5 mm Hg Tricuspid valve Value Ref TR peak v (H) 3.8 m/sec <=2.8 Ventricular septum Value Ref Peak RV-RA grad, S 58 mm Hg ----- IVS, ED (H) 1.4 cm 0.6 - 1.0 Aortic root Value Ref Right ventricle Value Ref Root diam 3.4 cm <4.1 VANESSA, LAX 3.3 cm VANESSA minor ax, A4C 3.5 cm 1.9 - 3.5 Ascending aorta Value Ref mid AAo AP diam, S 3.8 cm ----- Pressure, S 76 mm Hg Aortic arch Value Ref Left atrium Value Ref Arch diam 3.0 cm ----- AP dim, ES (H) 5.10 cm 3.00 - 4.00 Decending aorta Value Ref ML dim, A4C 6.0 cm Axel peak crispin 0.38 m/sec ----- SI dim, A4C 6.9 cm Vol/bsa, ES, A/L (H) 67 ml/m^2 16 - 34 Pulmonary artery Value Ref Pressure, S 74.0 mm Hg ----- Right atrium Value Ref SI dim, ES (H) 6.1 cm 3.4 - 5.3 Inferior vena cava Value Ref ML dim, ES, A4C (H) 5.0 cm 2.6 - 4.4 Diam 3.0 cm ----- Estimated RAP 8 mm Hg Pulmonary veins Value Ref Aortic valve Value Ref Peak v, S 0.57 m/sec ----- Marycruz diam, ED 2.0 cm Peak v, D 0.51 m/sec ----- Peak v, S 2.3 m/sec Peak S/D ratio 1.1 ----- VTI, S 50.0 cm A rev duration 121 ms ----- Mean grad, S 11.0 mm Hg Peak grad, S 21.0 mm Hg LVOT/AV, VTI 0.6 ratio CRISTINA, VTI 1.80 cm^2 CRISTINA, Vmax 2.00 cm^2 Legend: (L) and (H) adelso values outside specified reference range. Prepared and electronically signed by Kiya Rodriguez MD 04/09/2019 14:47
--- NOTE | 2019-04-09 15:51 | PN ---
Subjective Date of Service: 04/09/19 Interval History: Patient felt dyspnea improved yesterday, no longer needs oxygen. However he did have exertional dyspnea when he tried to sit up to help with my lung auscultation. No fever, no SOB, no cough, no swelling. Objective Active Medications: Allopurinol (Zyloprim Tab*) 100 mg PO BID [facility] Last Admin: 04/09/19 08:54 Dose: 100 mg Amiodarone HCl (Cordarone Tab*) [facility] [facility] Admin: 04/09/19 08:53 Dose: 200 mg Aspirin (Aspirin Ec Tab*) 81 mg PO QAM [facility] Last Admin: 04/09/19 08:53 Dose: 81 mg Atorvastatin Calcium (Lipitor*) 10 mg PO DAILY [facility] Last Admin: 04/09/19 08:53 Dose: 10 mg Calcium Polycarbophil (Fibercon Tab*) 1,250 mg PO TID WITH MEALS [facility] Last Admin: 04/09/19 13:04 Dose: 1,250 mg Ferric Citrate (Ferric Citrate Tab(Nf)) 420 mg PO TID WITH MEALS [facility] Last Admin: 04/09/19 13:17 Dose: Not Given Fish Oil (Fish Oil (Nf)) 1,000 mg PO BID [facility]; Protocol Last Admin: 04/09/19 09:03 Dose: Not Given Heparin Sodium (Porcine) (Heparin Vial(*)) 5,000 units SUBCUT Q8HR [facility] Last Admin: 04/09/19 13:04 Dose: 5,000 units Liothyronine Sodium (Cytomel Tab*) 75 mcg PO QAM@0600 [facility] Last Admin: 04/09/19 06:11 Dose: 75 mcg Metoprolol Succinate (Toprol Xl Tab*) 12.5 mg PO QAM [facility] Last Admin: 04/09/19 08:53 Dose: 12.5 mg Multivitamins/Minerals (Preservision Areds 2) 1 cap PO BID [facility] Last Admin: 04/09/19 09:02 Dose: Not Given Nft: Dialyvite 800- (Zinc 50 Mg Tab) [facility] [place] Last Admin: 04/09/19 09:03 Dose: Not Given Polyethylene Glycol/Electrolytes (Miralax*) 17 gm PO QAM [facility] Last Admin: 04/09/19 09:01 Dose: 17 gm Vital Signs - 8 hr 04/09/19 11:15 Temperature 97.9 F Pulse Rate 62 Respiratory 20 Rate Blood Pressure 133/59 (mmHg) O2 Sat by Pulse 92 Oximetry Oxygen Devices in Use Now: None Exam: General -well, not in acute distress Eyes - PERRLA, EOM intact HEENT- no abnormality Lymph Nodes - No lymphadenopathy Cardiovascular -regular, no m/r/g, no JVD, no carotid bruits Lungs - basal creps on left side, no use of acessory muscles, no crackles or wheezes. Skin - No rashes, skin warm and dry, no erythematous areas Abdomen - Normal bowel sounds, abdomen soft and mild tenderness. Extremities -No cyanosis or clubbing over bilateral upper extremities, no peripheral edema Musculo Skeletal - 5/5 strength, normal range of motion, no swollen or erythematous joints. Neurological Alert and oriented x 3, CN 2-12 grossly intact. Psychiatry-mood stable. Result Diagrams: 04/09/19 11:29 04/09/19 11:29 Additional Lab and Data: Lab Results 04/08/19 04/08/19 04/08/19 Range/Units 18:25 18:25 18:25 WBC 5.2 (3.5-10.8) 10^3/uL RBC 2.44 L (4.18-5.48) 10^6 /uL Hgb 8.6 L (14.0-18.0) g/dL Hct 26 L (42-52) % MCV 106 H (80-94) fL MCH 35 H (27-31) pg MCHC 33 (31-36) g/dL RDW 18 H (10-15) % Plt Count 126 L (150-450) 10^3/uL MPV 8.6 (7.4-10.4) fL Neut % (Auto) 69.6 % Lymph % (Auto) 12.1 % [place] % (Auto) 15.4 % Eos % (Auto) 1.9 % Baso % (Auto) 1.0 % Absolute Neuts (auto) 3.6 (1.5-7.7) 10^3/ul Absolute Lymphs (auto) 0.6 L (1.0-4.8) 10^3/ul Absolute Monos (auto) 0.8 (0-0.8) 10^3/ul Absolute Eos (auto) 0.1 (0-0.6) 10^3/ul Absolute Basos (auto) 0.1 (0-0.2) 10^3/ul Absolute Nucleated RBC 0.0 10^3/ul Nucleated RBC % 0.0 INR (Anticoag Therapy) 1.08 (0.82-1.09) Sodium 139 (135-145) mmol/L Potassium 4.1 (3.5-5.0) mmol/L Chloride 99 L (101-111) mmol/L Carbon Dioxide 34 H (22-32) mmol/L Anion Gap 6 (2-11) mmol/L BUN 43 H (6-24) mg/dL Creatinine 5.90 H (0.67-1.17) mg/dL Est GFR ( Amer) 11.1 (>60) Est GFR (Non-Af Amer) 9.1 (>60) BUN/Creatinine Ratio 7.3 L (8-20) Glucose 178 H (70-100) mg/dL Calcium 9.3 (8.6-10.3) mg/dL Total Bilirubin 0.30 (0.2-1.0) mg/dL AST 26 (13-39) U/L ALT 22 (7-52) U/L Alkaline Phosphatase 53 (34-104) U/L Troponin I 0.06 H* (<0.04) ng/mL B-Natriuretic Peptide (<=100) pg/mL Total Protein 6.3 L (6.4-8.9) g/dL Albumin 3.5 (3.2-5.2) g/dL Globulin 2.8 (2-4) g/dL Albumin/Globulin Ratio 1.3 (1-3) TSH 0.12 L (0.34-5.60) mcIU/mL Free T4 0.30 L (0.61-1.12) ng/dL 04/08/19 04/08/19 Range/Units 18:25 21:22 WBC (3.5-10.8) 10^3/uL RBC (4.18-5.48) 10^6 /uL Hgb (14.0-18.0) g/dL Hct (42-52) % MCV (80-94) fL MCH (27-31) pg MCHC (31-36) g/dL RDW (10-15) % Plt Count (150-450) 10^3/uL MPV (7.4-10.4) fL Neut % (Auto) % Lymph % (Auto) % [place] % (Auto) % Eos % (Auto) % Baso % (Auto) % Absolute Neuts (auto) (1.5-7.7) 10^3/ul Absolute Lymphs (auto) (1.0-4.8) 10^3/ul Absolute Monos (auto) (0-0.8) 10^3/ul Absolute Eos (auto) (0-0.6) 10^3/ul Absolute Basos (auto) (0-0.2) 10^3/ul Absolute Nucleated RBC 10^3/ul Nucleated RBC % INR (Anticoag Therapy) (0.82-1.09) Sodium (135-145) mmol/L Potassium (3.5-5.0) mmol/L Chloride (101-111) mmol/L Carbon Dioxide (22-32) mmol/L Anion Gap (2-11) mmol/L BUN (6-24) mg/dL Creatinine (0.67-1.17) mg/dL Est GFR ( Amer) (>60) Est GFR (Non-Af Amer) (>60) BUN/Creatinine Ratio (8-20) Glucose (70-100) mg/dL Calcium (8.6-10.3) mg/dL Total Bilirubin (0.2-1.0) mg/dL AST (13-39) U/L ALT (7-52) U/L Alkaline Phosphatase (34-104) U/L Troponin I 0.07 H* (<0.04) ng/mL B-Natriuretic Peptide > 1300 H (<=100) pg/mL Total Protein (6.4-8.9) g/dL Albumin (3.2-5.2) g/dL Globulin (2-4) g/dL Albumin/Globulin Ratio (1-3) TSH (0.34-5.60) mcIU/mL Free T4 (0.61-1.12) ng/dL Assess/Plan/Problems-Billing Assessment: 88 y/o male with history of ESRF on temporary HD, pAF, HTN, h/o TIA, presented with dyspnea, found to have pulmonary edema in CXR. This is likely due to fluid overload, also he did have long standing exertional dyspnea which may represent ischemic heart disease. - Patient Problems (1) Fluid overload Current Visit: Yes Status: Acute Code(s): E87.70 - FLUID OVERLOAD, UNSPECIFIED SNOMED Code(s): 55605863 Comment: - Recently converted to HD due to recurrent peritonitis, PD cath was removed - last HD Sunday, due today - CXR showing pulmonary edema - Consult nephrology for dialysis today (2) Elevated troponin Current Visit: No Status: Acute Code(s): R74.8 - ABNORMAL LEVELS OF OTHER SERUM ENZYMES SNOMED Code(s): 212662120 Comment: - troponin 0.06-0.07 at admission - in the setting of ESRD - TTE today, consider stress test (3) ESRD (end stage renal disease) on dialysis Current Visit: Yes Status: Acute Code(s): N18.6 - END STAGE RENAL DISEASE; Z99.2 - DEPENDENCE ON RENAL DIALYSIS SNOMED Code(s): 046049826 Comment: 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 (4) DVT prophylaxis Current Visit: No Status: Acute Code(s): VKB9552 - SNOMED Code(s): 053895375 Comment: - Sq heparin (5) History of CVA (cerebrovascular accident) Current Visit: No Status: Acute Code(s): Z86.73 - PRSNL HX OF TIA (TIA), AND CEREB INFRC W/O RESID DEFICITS SNOMED Code(s): 814560861 Comment: -continue home statin, aspirin (6) Hypertension Current Visit: No Status: Acute Code(s): I10 - ESSENTIAL (PRIMARY) HYPERTENSION SNOMED Code(s): 97027976 Comment: - continue home antihypertensives. (7) Anemia Current Visit: No Status: Acute Code(s): D64.9 - ANEMIA, UNSPECIFIED SNOMED Code(s): 822582367 Comment: -Hb 8-9 since May GI bleeding, stable -iron study in Sep: anemia of chronic disease, high ferritin - on iron tablet currently, need to find out whether he is on Epogen (8) Sick-euthyroid syndrome Current Visit: Yes Status: Acute Code(s): E07.81 - SICK-EUTHYROID SYNDROME SNOMED Code(s): 089328053 Comment: low TSH while a TSH 20 days ago normal low T4 sick euthyroid likely in acute illness. (9) Atrial fibrillation Current Visit: No Status: Chronic Code(s): I48.91 - UNSPECIFIED ATRIAL FIBRILLATION SNOMED Code(s): 68302940 Comment: -hx of paroxysmal atrial fibrillation -on event monitor due to prev syncope epside -rate controlled -anticoagulation was stopped in November due to GI bleeding. (10) Full code status Current Visit: No Status: Acute Code(s): Z78.9 - OTHER SPECIFIED HEALTH STATUS SNOMED Code(s): 918379980 Status and Disposition: Inpatient Medicine. Attestation Documenting Resident: Annia Lucero Supervising Physician: Nasreen Berrios Attending/Supervising Physician Comment: I suspect his symptoms were all driven by volume overload as his weight is 10 lbs up. He has significantly elevated PA pressures which also may be explained by his volume overload and is likely responsible for his shortness of breath. Dr. Henson following; agrees his symptoms are related to volume overload and will attempt volume removal today Attestation: This service has been performed in part by a resident under the direction of a teaching physician.I, Nasreen Berrios, performed the service, or was physically present during the critical, or garcia portions of the service, furnished by the resident. I participated in the management of the patient.
[2019-04-09] MEDS ORDERED: Heparin DIALYSIS ONLY(*) 1,000 UNITS/ML VIAL DIALYSIS ONE (16:30)
[2019-04-09] MEDS ORDERED: EPOETIN ALFA-EPBX * 4,000 UNIT/ML VIAL IV ONE (16:30)
[2019-04-09 18:37] LABS: Anion Gap 10 mmol/L (2-11); BUN/Creatinine Ratio 5.8 (8-20); Blood Urea Nitrogen 20 mg/dL (6-24); CO2 Carbon Dioxide 30 mmol/L (22-32); Calcium 9.8 mg/dL (8.6-10.3); Chloride 100 mmol/L (101-111); EGFR African American 20.4 (>60); EGFR Non-African American 16.9 (>60); Glucose 100 mg/dL (70-100); Magnesium 2.1 mg/dL (1.9-2.7); Potassium 3.8 mmol/L (3.5-5.0); Sodium 140 mmol/L (135-145)
[2019-04-09 18:44] LABS: Troponin I 0.06 ng/mL (<0.04)
[2019-04-09] MEDS ORDERED: Metoprolol Tartrate IV* 1 MG/ML 5 ML VIAL IV STA (18:53)
[2019-04-09] MEDS ORDERED: Metoprolol Tartrate IV* 1 MG/ML 5 ML VIAL ONE (18:59)
[2019-04-09 19:31] LABS: Folate > 20.00 ng/mL (>3.99)
[2019-04-09] MEDS ORDERED: Diltiazem DRIP* 100 MG/100 ML ADDV.BAG IV SCH (20:00)
[2019-04-09 20:21] LABS: Hepatitis B Surface Ab Not Immune (Immune)
[2019-04-09] MEDS: Diltiazem 125 mg in 125 mL NS (continuous infusion) IV SCH (20:36)
--- NOTE | 2019-04-09 21:17 | PN ---
Hospitalist Progress Note Date of Service: 04/09/19 This evening after dialysis, Mr. Shen was noted to be more tachycardic. Continued to be in afib. A 12-lead EKG was obtained and had a wide QRS (this is new from prior) with an irregular rhythm. Per brugada criteria this is not VT. Likely afib with aberrancy. Metoprolol 5mg IV attempted without change in rate or rhythm. EKG and tele strips reviewed with Dr. Rodriguez. Tele does show frequent runs of VT. Lytes were okay this afternoon, TTE showed normal LV but very elevated PA pressures. These rate/rhythm changes may be related to volume overload/volume shifts. Will start diltiazem drip and transfer to ICU for cardiac instability.
--- NOTE | 2019-04-09 21:23 | PN ---
DIALYSIS NOTE: DATE OF DIALYSIS: 04/09/19 SUBJECTIVE: The patient was seen and examined during dialysis. HD orders discussed with nurse. Doing well. Vitals and labs have been reviewed. PHYSICAL EXAM: HEENT: NC/AT. Heart: S1, S2 present. Irregularly irregular rate at the time of exam. Lungs: Decreased breath sounds with crackles at the bases. Abdomen: Soft. Extremities: Noted to have bilateral edema. Neuro: Alert, oriented. ASSESSMENT AND PLAN: 1. End-stage renal disease, on hemodialysis currently Sunday, Sunday, Sunday. The patient came in with significant volume overload, is getting dialysis and reports feeling slightly better. We are planning for removal of 3 L today. 2. The patient reports that when he felt best when he was on PD, his dry weight was 177 to 178 pounds; currently listed as 187 pounds for his dry weight in hemodialysis. We will discuss with the PD team if he was really at 178 before and if this is the case, we will slowly work on getting fluid off through his treatments to get him back to 178. 3. The patient had recurrent episodes of peritonitis with the same E. coli suggesting tunnelled infection of his PD catheter and at this time, the patient had his PD catheter removed and is on a 2-week catheter holiday and has completed his antibiotic, ciprofloxacin for peritonitis. Recommend reaching out to Dr. Bertrand to see if he prefers replacement of the PD catheter when the patient is already in the hospital or as outpatient. Once the PD catheter is placed, the patient would need to wait around 4 weeks to make sure that it matures and we can use it again. 4. In the interim, the patient will be continuing his hemodialysis sessions. 5. We will follow with the medical team and be available for any questions and we will plan his next treatment as an outpatient or inpatient on Sunday. [id number]/[facility] #: [id number] REA
[2019-04-10] MEDS: Diltiazem 125 mg in 125 mL NS (continuous infusion) IV SCH (03:20)
[2019-04-10 04:06] LABS: Hepatitis B Surface Antigen Nonreactive (Nonreactive)
[2019-04-10 06:06] LABS: ABS Lymphocytes 0.9 10^3/ul (1.0-4.8); ABS Monocytes 1.1 10^3/ul (0-0.8); ABS Neutrophils 3.9 10^3/ul (1.5-7.7); Eosinophil % 0.8 %; Hematocrit 25 % (42-52); Hemoglobin 8.3 g/dL (14.0-18.0); Lymphocyte % 14.5 %; Mean Corpuscular HGB Conc 33 g/dL (31-36); Mean Corpuscular Hemoglobin 35 pg (27-31); Mean Corpuscular Volume 105 fL (80-94); Mean Platelet Volume 8.9 fL (7.4-10.4); Nucleated Red Blood Cells % 0.1; Platelet Count 122 10^3/uL (150-450); Red Cell Distribution Width 17 % (10-15); White Blood Count 5.9 10^3/uL (3.5-10.8)
[2019-04-10] MEDS: Heparin VIAL(*) 5000 UNITS/ML VIAL (FIVE THOUSAND) SUBCUT SCH ×3 (06:17→21:35)
[2019-04-10] MEDS: Liothyronine TAB* 25 MCG PO SCH (06:18)
[2019-04-10 06:21] LABS: BUN/Creatinine Ratio 6.1 (8-20); Calcium 9.4 mg/dL (8.6-10.3); EGFR African American 14.1 (>60); EGFR Non-African American 11.6 (>60); Potassium 4.3 mmol/L (3.5-5.0)
[2019-04-10] MEDS: Atorvastatin* 10 MG TAB PO SCH (07:41)
[2019-04-10] MEDS: Allopurinol TAB* 100 MG PO SCH ×2 (07:41→21:35)
[2019-04-10] MEDS: Metoprolol Succinate XL TAB* 25 MG PO SCH (07:41)
[2019-04-10] MEDS: CMCS: OMEGA-3 FATTY ACIDS (NF) 1,000 MG CAP PO SCH ×2 (07:41→21:35)
[2019-04-10] MEDS: Amiodarone TAB* 200 MG PO SCH (07:42)
[2019-04-10] MEDS: FERRIC CITRATE 210 MG PO SCH ×4 (07:42→17:08)
[2019-04-10] MEDS: Aspirin EC TAB* 81 MG TAB.EC PO SCH (07:42)
[2019-04-10] MEDS: Polyethylene Glycol 3350* 17 GM PACKET PO SCH (07:43)
[2019-04-10] MEDS: NFT: Multivitamins/Mins (NF) AREDS2 1 CAP CAP PO SCH (07:43)
[2019-04-10] MEDS: DIALYVITE ZINC PO SCH ×2 (07:43→13:07)
[2019-04-10] MEDS: Calcium Polycarbophil TAB* 625 MG PO SCH ×4 (08:05→17:08)
--- NOTE | 2019-04-10 09:10 | PN ---
Subjective Date of Service: 04/10/19 Interval History: transferred from last evening for afib with RVR with aberrancy; improved on diltiazem drip. no vt overnight. Objective Active Medications: Allopurinol (Zyloprim Tab*) 100 mg PO BID [facility] Last Admin: 04/10/19 07:41 Dose: 100 mg Amiodarone HCl (Cordarone Tab*) 200 mg PO QAM [facility] Last Admin: 04/10/19 07:42 Dose: 200 mg Aspirin (Aspirin Ec Tab*) 81 mg PO QAM [facility] Last Admin: 04/10/19 07:42 Dose: 81 mg Atorvastatin Calcium (Lipitor*) 10 mg PO DAILY [facility] Last Admin: 04/10/19 07:41 Dose: 10 mg Calcium Polycarbophil (Fibercon Tab*) 1,250 mg PO TID WITH MEALS [facility] Last Admin: 04/10/19 08:05 Dose: 1,250 mg Ferric Citrate (Ferric Citrate Tab(Nf)) 420 mg PO TID WITH MEALS [facility] Last Admin: 04/10/19 07:42 Dose: Not Given Fish Oil (Fish Oil (Nf)) 1,000 mg PO BID [facility]; Protocol Last Admin: 04/10/19 07:41 Dose: 1,000 mg Heparin Sodium (Porcine) (Heparin Vial(*)) 5,000 units SUBCUT Q8HR [facility] Last Admin: 04/10/19 06:17 Dose: 5,000 units Diltiazem HCl 125 mg/ Sodium (Chloride) 125 mls @ 5 mls/hr IV Q24H [facility]; Protocol Last Admin: 04/10/19 03:20 Dose: 15 mls/hr Liothyronine Sodium (Cytomel Tab*) 75 mcg PO QAM@0600 [facility] Last Admin: 04/10/19 06:18 Dose: 75 mcg Metoprolol Succinate (Toprol Xl Tab*) 12.5 mg PO QAM [facility] Last Admin: 04/10/19 07:41 Dose: 12.5 mg Multivitamins/Minerals (Preservision Areds 2) 1 cap PO BID [facility] Last Admin: 04/10/19 07:43 Dose: Not Given Nft: Dialyvite 800- (Zinc 50 Mg Tab) 1 tab PO QAM [facility] Last Admin: 04/10/19 07:43 Dose: Not Given Polyethylene Glycol/Electrolytes (Miralax*) 17 gm PO QAM [facility] Last Admin: 04/10/19 07:43 Dose: 17 gm Vital Signs - 8 hr 04/10/19 04/10/19 04/10/19 01:31 02:00 02:30 Temperature Pulse Rate 96 97 97 Respiratory 28 23 27 Rate Blood Pressure 111/104 127/73 144/76 (mmHg) O2 Sat by Pulse 93 96 96 Oximetry 04/10/19 04/10/19 04/10/19 03:00 03:30 03:40 Temperature 97.6 F Pulse Rate 102 93 Respiratory 21 23 Rate Blood Pressure 120/80 114/82 (mmHg) O2 Sat by Pulse 95 97 Oximetry 04/10/19 04/10/19 04/10/19 04:00 04:02 04:30 Temperature Pulse Rate 92 92 106 Respiratory 16 24 14 Rate Blood Pressure 117/73 120/67 (mmHg) O2 Sat by Pulse 94 93 95 Oximetry 04/10/19 04/10/19 04/10/19 04:55 05:00 05:01 Temperature Pulse Rate 90 89 Respiratory 14 17 27 Rate Blood Pressure 125/69 (mmHg) O2 Sat by Pulse 96 93 Oximetry 04/10/19 04/10/19 04/10/19 05:30 06:00 06:01 Temperature Pulse Rate 87 93 Respiratory 12 25 14 Rate Blood Pressure 122/74 117/74 (mmHg) O2 Sat by Pulse 96 97 Oximetry 04/10/19 04/10/19 04/10/19 06:31 07:00 07:30 Temperature Pulse Rate 83 91 85 Respiratory 27 22 20 Rate Blood Pressure 108/86 114/79 114/82 (mmHg) O2 Sat by Pulse 95 97 97 Oximetry 04/10/19 04/10/19 07:33 08:00 Temperature 98.9 F Pulse Rate 90 Respiratory 14 21 Rate Blood Pressure 106/68 (mmHg) O2 Sat by Pulse 95 Oximetry Oxygen Devices in Use Now: None Appearance: alert, well appearing, breathing comfortably Eyes: No Scleral Icterus Ears/Nose/Mouth/Throat: NL Teeth, Lips, Gums Respiratory: - - rhonchi b/l Cardiovascular: - - R chest wall tempcath Abdominal: - - PD incision clean and dry Extremities: No Edema Skin: No Rash or Ulcers Neurological: Alert and Oriented x 3 Result Diagrams: 04/10/19 05:40 04/10/19 05:40 Additional Lab and Data: Lab Results 04/08/19 04/08/19 04/08/19 Range/Units 18:25 18:25 18:25 WBC 5.2 (3.5-10.8) 10^3/uL RBC 2.44 L (4.18-5.48) 10^6 /uL Hgb 8.6 L (14.0-18.0) g/dL Hct 26 L (42-52) % MCV 106 H (80-94) fL MCH 35 H (27-31) pg MCHC 33 (31-36) g/dL RDW 18 H (10-15) % Plt Count 126 L (150-450) 10^3/uL MPV 8.6 (7.4-10.4) fL Neut % (Auto) 69.6 % Lymph % (Auto) 12.1 % [place] % (Auto) 15.4 % Eos % (Auto) 1.9 % Baso % (Auto) 1.0 % Absolute Neuts (auto) 3.6 (1.5-7.7) 10^3/ul Absolute Lymphs (auto) 0.6 L (1.0-4.8) 10^3/ul Absolute Monos (auto) 0.8 (0-0.8) 10^3/ul Absolute Eos (auto) 0.1 (0-0.6) 10^3/ul Absolute Basos (auto) 0.1 (0-0.2) 10^3/ul Absolute Nucleated RBC 0.0 10^3/ul Nucleated RBC % 0.0 INR (Anticoag Therapy) 1.08 (0.82-1.09) Sodium 139 (135-145) mmol/L Potassium 4.1 (3.5-5.0) mmol/L Chloride 99 L (101-111) mmol/L Carbon Dioxide 34 H (22-32) mmol/L Anion Gap 6 (2-11) mmol/L BUN 43 H (6-24) mg/dL Creatinine 5.90 H (0.67-1.17) mg/dL Est GFR ( Amer) 11.1 (>60) Est GFR (Non-Af Amer) 9.1 (>60) BUN/Creatinine Ratio 7.3 L (8-20) Glucose 178 H (70-100) mg/dL Calcium 9.3 (8.6-10.3) mg/dL Total Bilirubin 0.30 (0.2-1.0) mg/dL AST 26 (13-39) U/L ALT 22 (7-52) U/L Alkaline Phosphatase 53 (34-104) U/L Troponin I 0.06 H* (<0.04) ng/mL B-Natriuretic Peptide (<=100) pg/mL Total Protein 6.3 L (6.4-8.9) g/dL Albumin 3.5 (3.2-5.2) g/dL Globulin 2.8 (2-4) g/dL Albumin/Globulin Ratio 1.3 (1-3) TSH 0.12 L (0.34-5.60) mcIU/mL Free T4 0.30 L (0.61-1.12) ng/dL 04/08/19 04/08/19 Range/Units 18:25 21:22 WBC (3.5-10.8) 10^3/uL RBC (4.18-5.48) 10^6 /uL Hgb (14.0-18.0) g/dL Hct (42-52) % MCV (80-94) fL MCH (27-31) pg MCHC (31-36) g/dL RDW (10-15) % Plt Count (150-450) 10^3/uL MPV (7.4-10.4) fL Neut % (Auto) % Lymph % (Auto) % [place] % (Auto) % Eos % (Auto) % Baso % (Auto) % Absolute Neuts (auto) (1.5-7.7) 10^3/ul Absolute Lymphs (auto) (1.0-4.8) 10^3/ul Absolute Monos (auto) (0-0.8) 10^3/ul Absolute Eos (auto) (0-0.6) 10^3/ul Absolute Basos (auto) (0-0.2) 10^3/ul Absolute Nucleated RBC 10^3/ul Nucleated RBC % INR (Anticoag Therapy) (0.82-1.09) Sodium (135-145) mmol/L Potassium (3.5-5.0) mmol/L Chloride (101-111) mmol/L Carbon Dioxide (22-32) mmol/L Anion Gap (2-11) mmol/L BUN (6-24) mg/dL Creatinine (0.67-1.17) mg/dL Est GFR ( Amer) (>60) Est GFR (Non-Af Amer) (>60) BUN/Creatinine Ratio (8-20) Glucose (70-100) mg/dL Calcium (8.6-10.3) mg/dL Total Bilirubin (0.2-1.0) mg/dL AST (13-39) U/L ALT (7-52) U/L Alkaline Phosphatase (34-104) U/L Troponin I 0.07 H* (<0.04) ng/mL B-Natriuretic Peptide > 1300 H (<=100) pg/mL Total Protein (6.4-8.9) g/dL Albumin (3.2-5.2) g/dL Globulin (2-4) g/dL Albumin/Globulin Ratio (1-3) TSH (0.34-5.60) mcIU/mL Free T4 (0.61-1.12) ng/dL Microbiology and Other Data: Microbiology 04/09/19 20:45 Nasal Screen MRSA (PCR) - Final Nasal Mrsa Not Detected Assess/Plan/Problems-Billing Assessment: 88 y/o male with history of ESRD on temporary HD (due to recent peritonitis), pAF, HTN, h/o TIA, presented with dyspnea, found to be 10lbs up from his dry weight since switching from PD to HD. - Patient Problems (1) Fluid overload Current Visit: Yes Status: Acute Code(s): E87.70 - FLUID OVERLOAD, UNSPECIFIED SNOMED Code(s): 16689548 Comment: Likely causing most of his symptoms, including events of last night HD yesterday removed 3L TTE showed markedly elevated PA pressure, also likely causing his dyspnea (2) Atrial fibrillation Current Visit: No Status: Chronic Code(s): I48.91 - UNSPECIFIED ATRIAL FIBRILLATION SNOMED Code(s): 29826793 Comment: with RVR on this admission, with a rate-related incomplete bundle branch block warfarin was stopped in November due to GI bleeding, and he declines to restart it and understands the risk of CVA stable and rate-controlled on diltiazem drip; will repeat EKG this morning to see if QRS has narrowed on home doses of diltiazem and amiodarone (3) Elevated troponin Current Visit: No Status: Acute Code(s): R74.8 - ABNORMAL LEVELS OF OTHER SERUM ENZYMES SNOMED Code(s): 601915087 Comment: troponin 0.06-0.07 at admission - in the setting of ESRD (4) ESRD (end stage renal disease) on dialysis Current Visit: Yes Status: Acute Code(s): N18.6 - END STAGE RENAL DISEASE; Z99.2 - DEPENDENCE ON RENAL DIALYSIS SNOMED Code(s): 230975200 Comment: currently on HD [employer] extermin[employer] plan is to insert a peritoneal dialysis cath and continue peritoneal dialysis. (5) DVT prophylaxis Current Visit: No Status: Acute Code(s): WNG8630 - SNOMED Code(s): 745965791 Comment: - Sq heparin (6) History of CVA (cerebrovascular accident) Current Visit: No Status: Acute Code(s): Z86.73 - PRSNL HX OF TIA (TIA), AND CEREB INFRC W/O RESID DEFICITS SNOMED Code(s): 631320585 Comment: continue home statin, aspirin again, he declines warfarin despite knowing elevated risk for CVA (7) Hypertension Current Visit: No Status: Acute Code(s): I10 - ESSENTIAL (PRIMARY) HYPERTENSION SNOMED Code(s): 51892908 Comment: - continue home antihypertensives. (8) Anemia Current Visit: No Status: Acute Code(s): D64.9 - ANEMIA, UNSPECIFIED SNOMED Code(s): 452369073 Comment: Hb 8-9 since May GI bleeding, stable iron study in Sep: anemia of chronic disease, high ferritin on iron tablet currently (9) Sick-euthyroid syndrome Current Visit: Yes Status: Acute Code(s): E07.81 - SICK-EUTHYROID SYNDROME SNOMED Code(s): 071511165 Comment: low TSH while a TSH 20 days ago normal low T4 sick euthyroid likely in acute illness. (10) Full code status Current Visit: No Status: Acute Code(s): Z78.9 - OTHER SPECIFIED HEALTH STATUS SNOMED Code(s): 622962809 Status and Disposition: Inpatient Medicine.
[2019-04-10] MEDS ORDERED: Diltiazem IV VIAL* 125 MG in NS 0.9% 100 ML* 100 ML IV SCH ×3 (13:00→16:00)
[2019-04-10] MEDS: MULTIVITAMINS AREDS2 PO SCH ×2 (13:07→21:35)
[2019-04-10] MEDS: MINS PO SCH ×2 (13:07→21:35)
--- NOTE | 2019-04-10 22:40 | PN ---
PROGRESS NOTE: DATE OF NOTE: 04/10/19 - ROOM #441 SUBJECTIVE: The patient was seen and examined at bedside. The patient reports that he still feels short of breath, but improved compared to yesterday. Vitals and labs have been reviewed. The patient was on a Cardizem drip for AFib/RVR and being monitored on telemetry. PHYSICAL EXAMINATION: HEENT: NC/AT. Heart: S1, S2 present. Irregularly irregular at the time of exam. Lungs: Clear to auscultation bilaterally. Abdomen: Soft. Extremities: Noted to have some edema. Neuro: Alert. ASSESSMENT AND PLAN: 1. End-stage renal disease, on hemodialysis. Currently, Sunday, Sunday, and Sunday. The patient was dialyzed yesterday. 2. Volume overload. The patient had 3 L taken off yesterday. The patient is still short of breath. The patient needs readjustment of his dry weight to 178 pounds. We will plan dialysis again in the morning with volume removal of 3 to 4 L as tolerated. 3. Atrial fibrillation. Per management for the primary medical team. 4. I discussed with Dr. Bertrand as the patient on peritoneal dialysis. Currently , has his catheter out due to repeated episodes of peritonitis with the same organism and is on hemodialysis. The patient has had a catheter-free holiday and he has already completed his antibiotic for peritonitis and is currently asymptomatic. The patient can have his peritoneal dialysis catheter placed again and we would need to wait for it to mature for us to reinitiate peritoneal dialysis catheter. Outpatient referral will be made to schedule this with Dr. Bertrand. 5. We will follow with the medical team. [id number]/[facility] #: [id number] [facility]PITALIrma
[2019-04-11] MEDS: Liothyronine TAB* 25 MCG PO SCH (05:35)
[2019-04-11] MEDS: Heparin VIAL(*) 5000 UNITS/ML VIAL (FIVE THOUSAND) SUBCUT SCH ×3 (05:36→21:12)
[2019-04-11] MEDS: Polyethylene Glycol 3350* 17 GM PACKET PO SCH (07:59)
[2019-04-11] MEDS: Atorvastatin* 10 MG TAB PO SCH (08:00)
[2019-04-11] MEDS: Aspirin EC TAB* 81 MG TAB.EC PO SCH (08:00)
[2019-04-11] MEDS: Calcium Polycarbophil TAB* 625 MG PO SCH ×3 (08:00→19:19)
[2019-04-11] MEDS: Metoprolol Succinate XL TAB* 25 MG PO SCH (08:00)
[2019-04-11] MEDS: Amiodarone TAB* 200 MG PO SCH (08:00)
[2019-04-11] MEDS: Allopurinol TAB* 100 MG PO SCH ×2 (08:00→21:11)
[2019-04-11] MEDS: CMCS: OMEGA-3 FATTY ACIDS (NF) 1,000 MG CAP PO SCH ×2 (08:02→21:11)
[2019-04-11] MEDS: DIALYVITE ZINC PO SCH (08:03)
[2019-04-11] MEDS: FERRIC CITRATE 210 MG PO SCH ×3 (08:04→19:18)
[2019-04-11] MEDS: MINS PO SCH ×2 (08:07→21:19)
[2019-04-11] MEDS: MULTIVITAMINS AREDS2 PO SCH ×2 (08:07→21:19)
--- NOTE | 2019-04-11 17:50 | PN ---
Subjective Date of Service: 04/11/19 Interval History: Patient felt improved but still not well enough in terms of dyspnea. Heart rate well controlled, was converted to sinus rhythm with medication this morning. Objective Active Medications: Allopurinol (Zyloprim Tab*) 100 mg PO BID [facility] Last Admin: 04/11/19 08:00 Dose: 100 mg Amiodarone HCl (Cordarone Tab*) 200 mg PO QAM [facility] Last Admin: 04/11/19 08:00 Dose: 200 mg Aspirin (Aspirin Ec Tab*) 81 mg PO QAM [facility] Last Admin: 04/11/19 08:00 Dose: 81 mg Atorvastatin Calcium (Lipitor*) 10 mg PO DAILY [facility] Last Admin: 04/11/19 08:00 Dose: 10 mg Calcium Polycarbophil (Fibercon Tab*) 1,250 mg PO TID WITH MEALS [facility] Last Admin: 04/11/19 13:05 Dose: 1,250 mg Epoetin Jr (Retacrit) 6,000 unit IV ONCE ONE Stop: 04/11/19 18:01 Ferric Citrate (Ferric Citrate Tab(Nf)) 420 mg PO TID WITH MEALS [facility] Last Admin: 04/11/19 13:05 Dose: 420 mg Fish Oil (Fish Oil (Nf)) 1,000 mg PO BID [facility]; Protocol Last Admin: 04/11/19 08:02 Dose: 1,000 mg Heparin Sodium (Porcine) (Heparin Vial(*)) 5,000 units SUBCUT Q8HR [facility] Last Admin: 04/11/19 13:07 Dose: 5,000 units Heparin Sodium (Porcine) (Heparin Dialysis Only(*)) 7,000 units DIALYSIS ONCE ONE Stop: 04/11/19 18:01 Liothyronine Sodium (Cytomel Tab*) 75 mcg PO QAM@0600 [facility] Last Admin: 04/11/19 05:35 Dose: 75 mcg Metoprolol Succinate (Toprol Xl Tab*) 12.5 mg PO QAM [facility] Last Admin: 04/11/19 08:00 Dose: 12.5 mg Multivitamins/Minerals (Preservision Areds 2) 1 cap PO BID [facility] Last Admin: 04/11/19 08:07 Dose: Not Given Pto: Dialyvite 800- (Zinc 50 Mg Tab) 1 tab PO QAM [facility] Last Admin: 04/11/19 08:03 Dose: 1 tab Polyethylene Glycol/Electrolytes (Miralax*) 17 gm PO QAM [facility] Last Admin: 04/11/19 07:59 Dose: 17 gm Oxygen Devices in Use Now: Nasal Cannula Exam: General -well, not in acute distress Eyes - PERRLA, EOM intact HEENT- no abnormality Lymph Nodes - No lymphadenopathy Cardiovascular -regular, no m/r/g, no JVD, no carotid bruits Lungs - lung clear, no use of acessory muscles, no crackles or wheezes. Skin - No rashes, skin warm and dry, no erythematous areas Abdomen - Normal bowel sounds, abdomen soft and mild tenderness. Extremities -No cyanosis or clubbing over bilateral upper extremities, no peripheral edema Musculo Skeletal - 5/5 strength, normal range of motion, no swollen or erythematous joints. Neurological Alert and oriented x 3, CN 2-12 grossly intact. Psychiatry-mood stable. Result Diagrams: 04/10/19 05:40 04/10/19 05:40 Additional Lab and Data: Lab Results 04/08/19 04/08/19 04/08/19 Range/Units 18:25 18:25 18:25 WBC 5.2 (3.5-10.8) 10^3/uL RBC 2.44 L (4.18-5.48) 10^6 /uL Hgb 8.6 L (14.0-18.0) g/dL Hct 26 L (42-52) % MCV 106 H (80-94) fL MCH 35 H (27-31) pg MCHC 33 (31-36) g/dL RDW 18 H (10-15) % Plt Count 126 L (150-450) 10^3/uL MPV 8.6 (7.4-10.4) fL Neut % (Auto) 69.6 % Lymph % (Auto) 12.1 % [place] % (Auto) 15.4 % Eos % (Auto) 1.9 % Baso % (Auto) 1.0 % Absolute Neuts (auto) 3.6 (1.5-7.7) 10^3/ul Absolute Lymphs (auto) 0.6 L (1.0-4.8) 10^3/ul Absolute Monos (auto) 0.8 (0-0.8) 10^3/ul Absolute Eos (auto) 0.1 (0-0.6) 10^3/ul Absolute Basos (auto) 0.1 (0-0.2) 10^3/ul Absolute Nucleated RBC 0.0 10^3/ul Nucleated RBC % 0.0 INR (Anticoag Therapy) 1.08 (0.82-1.09) Sodium 139 (135-145) mmol/L Potassium 4.1 (3.5-5.0) mmol/L Chloride 99 L (101-111) mmol/L Carbon Dioxide 34 H (22-32) mmol/L Anion Gap 6 (2-11) mmol/L BUN 43 H (6-24) mg/dL Creatinine 5.90 H (0.67-1.17) mg/dL Est GFR ( Amer) 11.1 (>60) Est GFR (Non-Af Amer) 9.1 (>60) BUN/Creatinine Ratio 7.3 L (8-20) Glucose 178 H (70-100) mg/dL Calcium 9.3 (8.6-10.3) mg/dL Total Bilirubin 0.30 (0.2-1.0) mg/dL AST 26 (13-39) U/L ALT 22 (7-52) U/L Alkaline Phosphatase 53 (34-104) U/L Troponin I 0.06 H* (<0.04) ng/mL B-Natriuretic Peptide (<=100) pg/mL Total Protein 6.3 L (6.4-8.9) g/dL Albumin 3.5 (3.2-5.2) g/dL Globulin 2.8 (2-4) g/dL Albumin/Globulin Ratio 1.3 (1-3) TSH 0.12 L (0.34-5.60) mcIU/mL Free T4 0.30 L (0.61-1.12) ng/dL 04/08/19 04/08/19 Range/Units 18:25 21:22 WBC (3.5-10.8) 10^3/uL RBC (4.18-5.48) 10^6 /uL Hgb (14.0-18.0) g/dL Hct (42-52) % MCV (80-94) fL MCH (27-31) pg MCHC (31-36) g/dL RDW (10-15) % Plt Count (150-450) 10^3/uL MPV (7.4-10.4) fL Neut % (Auto) % Lymph % (Auto) % [place] % (Auto) % Eos % (Auto) % Baso % (Auto) % Absolute Neuts (auto) (1.5-7.7) 10^3/ul Absolute Lymphs (auto) (1.0-4.8) 10^3/ul Absolute Monos (auto) (0-0.8) 10^3/ul Absolute Eos (auto) (0-0.6) 10^3/ul Absolute Basos (auto) (0-0.2) 10^3/ul Absolute Nucleated RBC 10^3/ul Nucleated RBC % INR (Anticoag Therapy) (0.82-1.09) Sodium (135-145) mmol/L Potassium (3.5-5.0) mmol/L Chloride (101-111) mmol/L Carbon Dioxide (22-32) mmol/L Anion Gap (2-11) mmol/L BUN (6-24) mg/dL Creatinine (0.67-1.17) mg/dL Est GFR ( Amer) (>60) Est GFR (Non-Af Amer) (>60) BUN/Creatinine Ratio (8-20) Glucose (70-100) mg/dL Calcium (8.6-10.3) mg/dL Total Bilirubin (0.2-1.0) mg/dL AST (13-39) U/L ALT (7-52) U/L Alkaline Phosphatase (34-104) U/L Troponin I 0.07 H* (<0.04) ng/mL B-Natriuretic Peptide > 1300 H (<=100) pg/mL Total Protein (6.4-8.9) g/dL Albumin (3.2-5.2) g/dL Globulin (2-4) g/dL Albumin/Globulin Ratio (1-3) TSH (0.34-5.60) mcIU/mL Free T4 (0.61-1.12) ng/dL Microbiology and Other Data: Microbiology 04/09/19 20:45 Nasal Screen MRSA (PCR) - Final Nasal Mrsa Not Detected Assess/Plan/Problems-Billing Assessment: 88 y/o male with history of ESRD on temporary HD (due to recent peritonitis), pAF, HTN, h/o TIA, presented with dyspnea, found to be 10lbs up from his dry weight since switching from PD to HD. His course complicated by Afib with RVR with aberrancy, converted to sinus with diltiazem drip. - Patient Problems (1) Atrial fibrillation Current Visit: No Status: Chronic Code(s): I48.91 - UNSPECIFIED ATRIAL FIBRILLATION SNOMED Code(s): 88405256 Comment: with RVR on this admission, with a rate-related incomplete bundle branch block rate controlled and cardioverted with diltiazem drip warfarin was stopped in November due to GI bleeding, and he declines to restart it and understands the risk of CVA on home doses of amiodarone and metoprolol (2) Fluid overload Current Visit: Yes Status: Acute Code(s): E87.70 - FLUID OVERLOAD, UNSPECIFIED SNOMED Code(s): 35366545 Comment: Likely causing most of his symptoms, including events of last night HD yesterday removed 3L TTE showed markedly elevated PA pressure, also likely causing his dyspnea (3) Elevated troponin Current Visit: No Status: Acute Code(s): R74.8 - ABNORMAL LEVELS OF OTHER SERUM ENZYMES SNOMED Code(s): 180589182 Comment: troponin 0.06-0.07 at admission - in the setting of ESRD (4) ESRD (end stage renal disease) on dialysis Current Visit: Yes Status: Acute Code(s): N18.6 - END STAGE RENAL DISEASE; Z99.2 - DEPENDENCE ON RENAL DIALYSIS SNOMED Code(s): 920713802 Comment: currently on HD [facility] plan is to insert a peritoneal dialysis cath and continue peritoneal dialysis. (5) DVT prophylaxis Current Visit: No Status: Acute Code(s): YPX9593 - SNOMED Code(s): 349449769 Comment: - Sq heparin (6) History of CVA (cerebrovascular accident) Current Visit: No Status: Acute Code(s): Z86.73 - PRSNL HX OF TIA (TIA), AND CEREB INFRC W/O RESID DEFICITS SNOMED Code(s): 480213328 Comment: continue home statin, aspirin again, he declines warfarin despite knowing elevated risk for CVA (7) Hypertension Current Visit: No Status: Acute Code(s): I10 - ESSENTIAL (PRIMARY) HYPERTENSION SNOMED Code(s): 30460325 Comment: - continue home antihypertensives. (8) Anemia Current Visit: No Status: Acute Code(s): D64.9 - ANEMIA, UNSPECIFIED SNOMED Code(s): 568819460 Comment: Hb 8-9 since November GI bleeding, stable iron study in Sep: anemia of chronic disease, high ferritin on iron tablet currently (9) Sick-euthyroid syndrome Current Visit: Yes Status: Acute Code(s): E07.81 - SICK-EUTHYROID SYNDROME SNOMED Code(s): 755065186 Comment: low TSH while a TSH 20 days ago normal low T4 sick euthyroid likely in acute illness. (10) Full code status Current Visit: No Status: Acute Code(s): Z78.9 - OTHER SPECIFIED HEALTH STATUS SNOMED Code(s): 625608214 Status and Disposition: Inpatient Medicine. PT assessment to see whether rehab needed. Attestation Documenting Resident: Annia Lucero Supervising Physician: Nasreen Berrios Attending/Supervising Physician Comment: Was still feeling short of breath before dialysis today. I still expect that his BARTHOLOMEW was mostly related to elevated pulmonary artery pressures (which was most likely caused by the switch to HD resulting in volume overload as evidenced by weight gain and acute pulmonary edema on CXR), however his elevated PA pressures could also be explained by a PE. I have discussed this possibility with him and his family, and he would not want to be on blood thinners given his history of a GI bleed (and his preference not to be on them anyway), so we will not pursue this at this time. Another possibility is amiodarone lung toxicity; this was not clear on initial CXR due to edema, so we will repeat a CXR in the morning after more fluid removal in HD today. Attestation: This service has been performed in part by a resident under the direction of a teaching physician.I, Nasreen Beriros, performed the service, or was physically present during the critical, or garcia portions of the service, furnished by the resident. I participated in the management of the patient.
[2019-04-11] MEDS ORDERED: Heparin DIALYSIS ONLY(*) 1,000 UNITS/ML VIAL DIALYSIS ONE (18:00)
[2019-04-11] MEDS ORDERED: EPOETIN ALFA-EPBX * 3,000 UNIT/ML VIAL IV ONE (18:00)
--- NOTE | 2019-04-11 21:11 | PN ---
DIALYSIS NOTE: DATE OF DIALYSIS: 04/11/19 SUBJECTIVE: The patient was seen and examined at bedside during dialysis. Tolerating his procedure w ell. Vitals and labs have been reviewed. PHYSICAL EXAMINATION: HEENT: NC/AT. Heart: S1, S2 present. Regular at the time of exam. Lungs: Diminished breath sounds. Minimal crackles at the bases. Abdomen: Soft. Extremities: Minimal cadence ma. Neuro: Alert, oriented. ASSESSMENT AND PLAN: 1. End-stage renal disease, on hemodialysis Sunday, Sunday, Sunday. The pa rhonda is currently at his prior dry weight of 178 pounds. The patient was previously at 187 pounds. Despite him being 10 pounds lower, the patient reports that he is still short of breath. In light of this, we will try to challenge his UF and attempt another 2.5 L today and this has been discussed wi th the patient and we will see how the patient does and decide on readdress his dry weight based on s ymptoms. 2. The patient was a PD candidate and plan to transition back to PD. His PD catheter was removed in the setting of recurrent peritonitis. We will contact Dr. Bertrand's office as an outpatient and then arrange for PD catheter placement. In the interim, the patient to continue hemodialysis. 3. If the patient feels well over the weekend, the patient can be discharged in follow up with the d ialysis unit at his usual time on Sunday. If he continues to stay in the hospital, we will plan his next inpatient dialysis session on Sunday. [id number]/[facility] #: [id number]
[2019-04-12] MEDS: Liothyronine TAB* 25 MCG PO SCH (05:04)
[2019-04-12] MEDS: Heparin VIAL(*) 5000 UNITS/ML VIAL (FIVE THOUSAND) SUBCUT SCH ×2 (05:05→13:57)
[2019-04-12] MEDS: Polyethylene Glycol 3350* 17 GM PACKET PO SCH (08:24)
[2019-04-12] MEDS: FERRIC CITRATE 210 MG PO SCH ×3 (08:24→17:04)
[2019-04-12] MEDS: Aspirin EC TAB* 81 MG TAB.EC PO SCH (08:25)
[2019-04-12] MEDS: Calcium Polycarbophil TAB* 625 MG PO SCH ×3 (08:26→17:04)
[2019-04-12] MEDS: Amiodarone TAB* 200 MG PO SCH (08:26)
[2019-04-12] MEDS: Atorvastatin* 10 MG TAB PO SCH (08:27)
[2019-04-12] MEDS: Allopurinol TAB* 100 MG PO SCH (08:27)
[2019-04-12] MEDS: Metoprolol Succinate XL TAB* 25 MG PO SCH (08:27)
[2019-04-12] MEDS: DIALYVITE ZINC PO SCH (08:28)
[2019-04-12] MEDS: CMCS: OMEGA-3 FATTY ACIDS (NF) 1,000 MG CAP PO SCH (08:29)
[2019-04-12] MEDS: MULTIVITAMINS AREDS2 PO SCH (08:47)
[2019-04-12] MEDS: MINS PO SCH (08:47)
[2019-04-12 15:42] VITALS: BP 127/52
--- NOTE | 2019-05-18 22:58 | DS ---
CC: Dr. Saenz; Dr. Selene Conn * DISCHARGE SUMMARY: DATE OF ADMISSION: 04/08/19 DATE OF DISCHARGE: 04/12/19 PRINCIPAL DISCHARGE DIAGNOSES: 1. Dyspnea on exertion. 2. Volume overload. SECONDARY DISCHARGE DIAGNOSES: 1. Sick euthyroid. 2. Paroxysmal atrial fibrillation. 3. End-stage renal disease. 4. Hypertension. 5. Anemia. 6. History of cerebrovascular accident. 7. History of gastrointestinal bleed. MEDICATIONS AT DISCHARGE: 1. Allopurinol 100 mg b.i.d. 2. Fish oil 1000 mg b.i.d. 3. Aspirin 81 mg daily. 4. Simvastatin 20 mg daily. 5. MiraLAX 17 g daily. 6. Vitamin E 1000 units daily. 7. Amiodarone 200 mg daily. 8. FiberCon 1250 mg t.i.d. with meals. 9. PreserVision 1 cap b.i.d. 10. Auryxia 420 mg t.i.d. with meals. 11. Toprol-XL 12.5 mg daily. 12. Liothyronine 75 mcg daily. PHYSICAL EXAMINATION: Temperature 98.1, heart rate 62, respiratory rate 20, pulse ox 94% on room air, blood pressure of 127/52, ambulatory pulse ox was 94% to 96% while walking. General: Alert, well-appearing elderly man, in no distress, sitting up in the chair. HEENT: Pupils are equal, round, and reactive to light. Oral mucosa is moist. Neck: No JVP, no adenopathy. Chest: He is in a regular rate and rhythm. Lungs: Clear bilaterally with no wheezes , rhonchi, or crackles. Extremities: No edema, rashes, or ulcers. Skin: A PermCath is noted on his chest. PERTINENT DIAGNOSTIC STUDIES ON THIS ADMISSION: A transthoracic echocardiogram performed on 04/13/19 showed LVEF 55% to 60%, Doppler parameters consistent with elevated end-diastolic filling pressure, mild mitral stenosis, mild mitral regurgitation, mild aortic stenosis, [id number] aortic regurgitation, mild -to- moderate tricuspid regurgitation, and pulmonary artery pressure severely increased. Chest x-ray on the day of discharge showed left basilar atelectasis versus consolidation and pulmonary vascular congestion. HOSPITAL COURSE BY PROBLEM: 1. Dyspnea on exertion. Mr. Shen did not demonstrate oxygen requirement during this admission, however, complained of worsening dyspnea on exertion. This was in the setting of a recent switch from peritoneal dialysis to hemodialysis due to peritonitis. He was noted to have vascular congestion and severely elevated PA pressures as well as weight gain which fits or likely suspicion of volume overload in relation to the switch in dialysis modes and we suspected that the elevated PA pressures were causing most of his respiratory distress with ambulation. He continued to improve with serial dialysis sessions. The differential also included amiodarone lung toxicity; however, his chest x-ray did not suggest fibrosis and he continued to improve with dialysis sessions attempting to decrease his dry weight and we also considered anemia as the cause of his dyspnea on exertion but his hemoglobin remained near his baseline. We considered the possibility of a PE given his severely elevated PA pressure; however, we discussed this possibility with him and given his history of severe GI bleed, he did not want to pursue anything that might put him on a blood thinner and he would refuse a blood thinner if we did find a PE, so we did not pursue a PE workup. Based on all this information, we felt that his dyspnea on exertion was related to volume overload due to a recent switch in dialysis mode and by the day of discharge, he felt back to the baseline and had no oxygen requirement even with ambulation. 2. AFib with RVR. Early in admission he went into the AFib with RVR and had a rate related and complete bundle branch block. He was transferred to the ICU and started on a Cardizem drip and with further volume removal, returned to rate control. The diltiazem was able to be discontinued and he was continued on amiodarone and metoprolol at his home doses. He understands his risk for CVA and continues to decline restarting warfarin. 3. End-stage renal disease, currently on hemodialysis, as above. 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 4. History of CVA. He was continued on his home doses of aspirin and statin. 5. Hypertension. His blood pressure was well controlled. 6. Anemia. His hemoglobin had been 8 to 9 since November GI bleeding and he had no evidence of bleeding on this admission. 7. Sick euthyroid, suspected likely an acute illness and can be repeated on outpatient basis. He has had no current symptoms of active hypothyroidism. DISPOSITION: Mr. Shen was discharged to home with his and daughter who were in agreement with the discharge plan. CONDITION AT THE TIME OF DISCHARGE: Fair. [id number]/[facility] #: [id number] MTDIrma
== END 2019-04-12 16:57 | disposition home or self-care (01) | DRG 640 ==
LOC: ED 18:02 → MEDTELE 23:00 → OBSVTOIN 04-09 11:00 → ICU 04-09 19:40 → MEDTELE 04-10 11:55
PROVIDERS: ADMIT Hospitalist; ATTEND Internal Medicine
PROC: 5A1D70Z Performance of Urinary Filtration, Intermittent, Less than 6 Hours Per Day (ICD-10-PCS; principal; 2019-04-09)
DX: E87.70 Fluid overload, unspecified (principal); N18.6 End stage renal disease; I12.0 Hypertensive chronic kidney disease with stage 5 chronic kidney disease or end stage renal disease; I47.2 Ventricular tachycardia; I48.0 Paroxysmal atrial fibrillation; E03.9 Hypothyroidism, unspecified; E78.00 Pure hypercholesterolemia, unspecified; H91.90 Unspecified hearing loss, unspecified ear; Z96.1 Presence of intraocular lens; I45.4 Nonspecific intraventricular block; R79.89 Other specified abnormal findings of blood chemistry; E07.81 Sick-euthyroid syndrome; M10.9 Gout, unspecified; D63.1 Anemia in chronic kidney disease; M19.90 Unspecified osteoarthritis, unspecified site; G47.33 Obstructive sleep apnea (adult) (pediatric); Z98.41 Cataract extraction status, right eye; Z98.42 Cataract extraction status, left eye; Z99.2 Dependence on renal dialysis; Z91.048 Other nonmedicinal substance allergy status; Z80.0 Family history of malignant neoplasm of digestive organs; Z87.442 Personal history of urinary calculi; Z97.4 Presence of external hearing-aid; Z86.73 Personal history of transient ischemic attack (TIA), and cerebral infarction without residual deficits; Z85.820 Personal history of malignant melanoma of skin
CPT/HCPCS: 36415; 71045; 80048; 80053; 82746; 83735; 83880; 84439; 84443; 84484; 85025; 85610; 86706; 87340; 87641; 90935; 93005; 93306; 94660; 96372; 96374; 96375; 99284; A9270-GY; G0257; G0378; G8978-GP-CI; G8979-GP-CI; G8980-GP-CI; J1644; J3490; Q5106

== ENCOUNTER 2019-05-07 11:40 | Day surgery (SDC) | payer MEDICARE ==
[~2019-05-07 11:40] MED LIST changes: -Acetaminophen TAB* 325 MG PO PRN; -Bacitracin OINTMENT* 0.5% 0.5 oz TUBE TOPICAL SCH; +Famotidine IV* 10 MG/ML 2 ML (20 mg) IV ONE; -Heparin VIAL(*) 5000 UNITS/ML VIAL (FIVE THOUSAND) ONE; +Lactated Ringers 1000 ML Bag* 1,000 ML IV SCH; -Lidocaine 1% INJ* 10 MG/ML 30 ML SDV ONE; -Lidocaine 2% PF * 5 ML VIAL IV SCH; -Midazolam* 1 MG/ML 5 ML VIAL (5 MG) IV SLOW PU SCH; -NS 0.9% 1000 ML** 1,000 ML IV SCH; -Naloxone* 0.4 MG/ML 1 ML VIAL IV PRN; -Ondansetron INJ* 2 MG/ML VIAL IV SCH; -Propofol* 10 MG/ML 20 ML BTL IV SCH; -ceFAZolin 2 GM PREMIX in ORs 2 GM/50 ML BAG ONE; -ceFAZolin VIAL(*) VIAL ONE; -fentaNYL* 50 MCG/ML 2 ML VIAL (100 MCG VIAL) IV SCH
[2019-05-07] MEDS ORDERED: Famotidine IV* 10 MG/ML 2 ML (20 mg) ONE (12:04)
[2019-05-07] MEDS ORDERED: ceFAZolin 2 GM PREMIX in ORs 2 GM/50 ML BAG ONE (12:04)
[2019-05-07] MEDS ORDERED: Heparin VIAL(*) 5000 UNITS/ML VIAL (FIVE THOUSAND) ONE (12:17)
[2019-05-07] MEDS ORDERED: Heparin DIALYSIS ONLY(*) 1,000 UNITS/ML VIAL ONE (12:19)
[2019-05-07] MEDS ORDERED: Bupivacaine 0.25% SDV PF* 10 ML VIAL INJ ONE (12:37)
[2019-05-07 12:50] LABS: Calcium 10.6 mg/dL (8.6-10.3); Potassium 4.1 mmol/L (3.5-5.0); Total Bilirubin 0.4 mg/dL (0.2-1.0)
[2019-05-07] MEDS ORDERED: DiMENhydriNATE IV* 50 MG/ML VIAL IV PUSH PRN (12:55)
[2019-05-07] MEDS ORDERED: Ondansetron INJ* 2 MG/ML VIAL IV PRN (12:55)
[2019-05-07] MEDS ORDERED: oxyCODONE/Acetamin 5/325 MG* TAB PO PRN (12:55)
[2019-05-07] MEDS ORDERED: HYDROcodone/ACETAMIN 5-325 MG* 1 TAB PO PRN (12:55)
[2019-05-07] MEDS ORDERED: fentaNYL* 50 MCG/ML 2 ML VIAL (100 MCG VIAL) IV PRN (12:55)
[2019-05-07] MEDS ORDERED: Naloxone* 0.4 MG/ML 1 ML VIAL IV PRN (12:55)
[2019-05-07 12:56] LABS: Albumin/Globulin Ratio 1.3 (1-3); EGFR African American 15.5 (>60); EGFR Non-African American 12.8 (>60); Globulin 3.2 g/dL (2-4); Total Protein 7.2 g/dL (6.4-8.9)
[2019-05-07] MEDS ORDERED: Lidocaine 1% w EPI 1:200,000* SDV 30 ML VIAL ONE (12:59)
[2019-05-07] MEDS ORDERED: Midazolam* 1 MG/ML 2 ML VIAL (2 MG) ONE (13:00)
[2019-05-07] MEDS ORDERED: fentaNYL* 50 MCG/ML 2 ML VIAL (100 MCG VIAL) ONE (13:00)
[2019-05-07] MEDS ORDERED: Propofol* 10 MG/ML 20 ML BTL ONE (13:00)
[2019-05-07] MEDS ORDERED: Lidocaine 2% PF * 5 ML VIAL ONE (13:01)
--- NOTE | 2019-05-07 14:28 | BRIEFOPN ---
Brief Operative/Procedure Note - Operation Details Pre-Op Diagnosis: End stage renal disease Post-Op Diagnosis: same as above Procedures: Peritoneal dialysis catheter placement Surgeon(s)/Proceduralists: Dr. Bertrand. Assist: CYN Parker; NAFISA Carreon Anesthesia: MAC; Dr. Sanders Estimated Blood Loss: <5ml; IV fluids: 200ml LR Findings: as above Specimen(s)/Culture(s) Description: none Complications: none
[2019-05-07 16:02] VITALS: BP 166/73
--- NOTE | 2019-05-07 22:29 | OP ---
CC: [facility] Nephrology; Primary Care Doctor, Dr. Selene Conn * DATE OF OPERATION: 05/07/19 - [facility] DATE OF : 34 SURGEON: Shahram Bertrand MD. 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 ANESTHESIOLOGIST: Dr. Sanders. ANESTHESIA: Local MAC. PRE-OP DIAGNOSIS: End-stage renal disease. POST-OP DIAGNOSIS: End-stage renal disease. OPERATIVE PROCEDURE: Insertion of peritoneal dialysis catheter. ESTIMATED BLOOD LOSS: Less than 10 cc of blood. FLUIDS: 200 cc of lactated Ringer's given. IMPLANTS: Peritoneal dialysis catheter inserted via a right lower quadrant incision. INDICATIONS: Mr. Shen is a gentleman who underwent peritoneal dialysis through a catheter that had been placed years ago. The patient did develop bacterial peritonitis and the catheter was removed. The patient has been undergoing hemodialysis with a thought of revisiting peritoneal dialysis. I discussed with him and his my recommendations of placing this in an open fashion rather than laparoscopic feeling the patient was a high risk for this intervention. He agreed on the day of surgery. He was consented. He was marked, taking care where the tubing would exit and his belt line. DESCRIPTION OF PROCEDURE: The patient was then brought to the operating room and placed on the operating table in the supine position. Preoperative antibiotics were given. Sequential devices were placed on bilateral lower extremities, and local sedation was given. The patient's abdomen was clipped of hair and prepped and draped in standard surgical fashion. Time-out was performed. Injection of lidocaine over the right rectus muscle was carried out. Incision was made and it was deepened down through Michael fascia down to the rectus fascia. Approximately a 2.5-cm incision was made through this and the muscles were split. The posterior fascia was elevated, this was cut, and the peritoneum was identified. A 2-0 Vicryl suture was placed in a pursestring fashion. We then opened up the peritoneum with scissors and noted that a portion of valve was attached to our pursestring suture. Pursestring suture was removed and the bowel fell back in. It did not show any spillage of content, I do believe this was a serosal bite all together. There was free fluid upon review of the small area that we could see. We then placed a peritoneal dialysis catheter into the pelvis directing it this fashion. We then had placed another pursestring suture already around the peritoneum with 2-0 Vicryl sutures and we tied this appropriately making sure that only the appropriate portions of the catheter were intra-abdominal. We then closed the anterior fascia over the button of this peritoneal dialysis catheter and this was fully obscured. We had the appropriate orientation and tunneled it superiorly and then laterally on the abdominal wall ensuring that the second cuff was in the subcutaneous fat. We then irrigated and reapproximated the Michael fascia with 3-0 Vicryl followed by 3-0 Vicryl to the subcutaneous level and then 4-0 Monocryl subcuticular sutures. Steri-Strips were applied. Sterile dressing was applied. The tubing was connected to the catheter and dialysate was infused with ease and removed in the PACU for planned discharge home for the patient. [id number]/[facility] #: [id number] MTDD
== END 2019-05-07 16:04 | disposition home or self-care (01) ==
LOC: OR 11:40
PROVIDERS: ATTEND Surgery
DX: N18.6 End stage renal disease (principal); Z99.2 Dependence on renal dialysis; I12.9 Hypertensive chronic kidney disease with stage 1 through stage 4 chronic kidney disease, or unspecified chronic kidney disease; E78.5 Hyperlipidemia, unspecified; I48.91 Unspecified atrial fibrillation; R01.1 Cardiac murmur, unspecified; Z85.820 Personal history of malignant melanoma of skin; G47.33 Obstructive sleep apnea (adult) (pediatric)
CPT/HCPCS: 36415; 80053; J0690; J1644; J2001; J2250; J2704; J3010; J3490